=== PATIENT | male | born 1955 | race Caucasian/White ===

== ENCOUNTER 2023-12-17 15:18 | Inpatient (IN) | payer OTHER, SELFPAY ==
--- NOTE | ~2023-12-17 | CT_ITS ---
EXAMINATION: CT brain wo con DATE: 12/17/2023 16:23 INDICATION: Loss of consciousness. TECHNIQUE: Computed tomography (CT) of the head was performed without intravenous contrast. The mA wa s adjusted according to patient size. Iterative reconstruction technique was employed. The dose-lengt h product was 605.33 mGy-cm. COMPARISON: None FINDINGS: There is no intracranial hemorrhage, acute infarction, or abnormal intracranial mass lesion . There are scattered areas of low attenuation in the cerebral white matter, which is within normal l imits for the patient's age. The ventricles are normal in size. There is mild mucosal thickening in t he paranasal sinuses. There are surgical changes in the paranasal sinuses. The orbits are normal. The mastoid air cells are normal. IMPRESSION: 1. Normal aging brain. Reviewed, dictated and finalized at location E. IMPRESSION: 1. Normal aging brain.
--- NOTE | ~2023-12-17 | CT_ITS ---
Non-contrast CT scan of the Abdomen and Pelvis Clinical indication: Recurrent UTI, hematuria Technique: 2.5 mm axial scans were obtained through the abdomen and pelvis without intravenous or or al contrast. Dose reduction technique was used on this scan by utilizing automated exposure control a nd iterative reconstruction technique. The dose-length product (DLP) was 450.28 mGy-cm. Findings: Images through the lung bases reveal presumed right basilar atelectatic change. There is no evidence of renal or ureteral calculi. The kidneys and the ureters are nondilated. The liver, spleen, pancreas, gallbladder, and adrenals appear normal.. There are atherosclerotic calc ifications of the aorta. There is no evidence of bowel obstruction. Images through the pelvis were performed. There is no evidence of ascites or lymphadenopathy. Possibl e urinary bladder wall thickening versus underdistention, with suprapubic catheter in place. Prostate gland is enlarged. Impression: Question cystitis of the urinary bladder versus underdistention. Superpubic catheter in place. Enlarged prostate gland. Reviewed, dictated and finalized at location . Impression: Question cystitis of the urinary bladder versus underdistention. Superpubic cat heter in place. Enlarged prostate gland.
--- NOTE | 2023-12-17 15:23 | ECG_ITS ---
SEE SCANNED COPY FOR CONFIRMED REPORT MTDD
[2023-12-17 15:42] VITALS: BP 117/68; PULSE 72; RESP 16; TEMP 36.7; O2SAT 100
[2023-12-17 15:49] LABS: Glucose Point of Care 81 mg/dl (65-105)
[2023-12-17 15:51] LABS: Basophils Percent Auto 0.5 % (0.2-1.2); Eosinophils Absolute Auto 0.1 K/mm3 (0-0.3); Eosinophils Percent Auto 1.7 % (0-4.4); Hematocrit 33.5 % (42.0-52.0); Immature Granulocyte Absolute 0.02 K/mm3 (0.00-0.031); Immature Granulocyte Percent A 0.5 % (0-0.5); Lymphocytes Percent Auto 29.4 % (18.3-44.2); Mean Corpuscular HGB Conc 32.8 g/dl (32-36); Mean Corpuscular Hemoglobin 30.7 pg (26-34); Mean Corpuscular Volume 93.6 fl (80-100); Mean Platelet Volume 10.3 fl (7.4-10.4); Monocytes Absolute Auto 0.5 K/mm3 (0.1-0.6); Monocytes Percent Auto 13.2 % (2.6-8.5); Neutrophils Absolute Auto 2.2 K/mm3 (1.3-6.7); Neutrophils Percent Auto 54.7 % (45.5-73.1); Platelet Count Result 134 k/mm3 (150-375); Red Blood Count 3.58 M/mm3 (4.6-6.20); Red Cell Distribution Width 16.3 % (11.5-14.5); White Blood Count 4.1 K/mm3 (4.5-10.0)
[2023-12-17 16:03] LABS: Anion Gap 6 mmol/L (4-12); Blood Urea Nitrogen 19 mg/dL (9-20); Carbon Dioxide 28 mmol/L (22-30); Chloride 103 mmol/L (98-107); Estimated CRCL calculation 103 ml/min; Sodium 137 mmol/L (137-145)
[2023-12-17 16:04] LABS: Alanine Aminotransferase 16 U/L (6-50); Albumin Level 3.8 g/dL (3.5-5.1); Alkaline Phosphatase 75 U/L (38-126); Appearance Urine Turbid (Clear); Aspartate Amino Transferase 22 U/L (17-59); Bacteria Urine 4+ /hpf; Bilirubin Urine Negative (Negative); Bilirubin,Total 0.4 mg/dL (0.2-1.3); Blood Urine 2+ (Negative); Calcium 9.1 mg/dL (8.4-10.2); Color Urine Dark Yellow (Yellow); Estimated Glomerular Filt Rate > 60; Glucose 83 mg/dL (65-110); Glucose Urine UA Negative (Negative); Ketones Urine 1+ mg/dL (Negative); Lactic Acid Reflex 2.5 mmol/L (0.7-2.0); Leukocyte Esterase Ur 3+ LEU/UL (Negative); Need Manual Microscopic Reviewed; Nitrate Urine Positive (Negative); Protein Urine 1+ mg/dL (Negative); RBC Urine 21-50 /hpf (0-2); Squamous Epithelial Cell Urine None Seen /hpf (Few); Urobilinogen Urine 0.2 mg/dL (<2.0); WBC Urine >100 /hpf (0-3); pH Urine 7.5 (5.0-9.0)
[2023-12-17 16:05] LABS: Add Urine Microscopic? YES
[2023-12-17 16:15] LABS: Troponin I < 0.012 ng/mL (0.000-0.034)
[2023-12-17] MEDS: SODIUM CHLORIDE 0.9% IV 1,000 ML 150 ML IV CONT (16:41)
--- NOTE | 2023-12-17 16:43 | ED.AMS ---
HPI - Altered Mental Status General Chief Complaint: Altered Mental Status Stated Complaint: AMS/UTI Time Seen by Provider: 12/17/23 15:18 Source: family and EMS Mode of arrival: EMS History of Present Illness HPI narrative: 68-year-old with a history of CAD status post CABG, paraplegia, suprapubic catheter was brought in from home with the complaints of altered mental status. As per the EMS patient is A&O x4 however since last night he has been found to be quite confused. He was seen [facility] [place] was diagnosed with urinary tract infection was started on antibiotics still after they got home reports that he is being very confused. No history of fever or chills. Patient states that he has a burning in the genital area MD complaint: altered mental status and confusion Timing confirmed by: spouse Severity: moderate Related Data Home Medications Medication Instructions Recorded Confirmed Lactobacillus acidophilus 1 1,000 mmu cells PO DAILY 10/03/20 10/14/23 billion cell capsule acetic acid 0.25 % irrigation 1,000 ml irrigation Q12H 10/03/20 10/14/23 solution albuterol sulfate 2.5 mg/3 mL 2.5 mg inhalation Q6H 10/03/20 10/14/23 (0.083 %) solution for nebulization albuterol sulfate 90 mcg/actuation 1 puff inhalation Q4H PRN 10/03/20 10/14/23 aerosol inhaler alogliptin 25 mg tablet 25 mg PO DAILY 10/03/20 10/14/23 apixaban 5 mg tablet 5 mg PO BID 10/03/20 10/14/23 aspirin 81 mg tablet,delayed 81 mg PO DAILY 10/03/20 10/14/23 release atorvastatin 80 mg tablet 80 mg PO DAILY 10/03/20 10/14/23 baclofen 20 mg tablet 20 mg PO QID 10/03/20 10/14/23 bisacodyl 10 mg rectal suppository 10 mg RECTAL DAILY PRN 10/03/20 10/14/23 blood sugar diagnostic (Accu-Chek #10 ea 10/03/20 10/14/23 Naya Plus test strips) budesonide-formoterol HFA 160 2 puff inhalation Q12H 10/03/20 10/14/23 mcg-4.5 mcg/actuation aerosol inhaler bumetanide 2 mg tablet 2 mg PO BID 10/03/20 10/14/23 cyanocobalamin (vitamin B-12) 500 500 mcg PO DAILY 10/03/20 10/14/23 mcg tablet divalproex 250 mg tablet,delayed 250 mg PO .qd 10/03/20 10/14/23 release divalproex 500 mg tablet,delayed 500 mg PO .qd 10/03/20 10/14/23 release docusate sodium 100 mg capsule 100 mg PO TID PRN 10/03/20 10/14/23 eplerenone 25 mg tablet 25 mg PO DAILY 10/03/20 10/14/23 fluorometholone 0.1 % eye 1 drp RIGHT EYE Q6H 10/03/20 10/14/23 drops,suspension gabapentin 300 mg capsule 300 mg PO .qhs 10/03/20 10/14/23 glipizide 5 mg tablet 5 mg PO BID 10/03/20 10/14/23 glucose 4 gram chewable tablet 4 g PO Q15M PRN 10/03/20 10/14/23 guaifenesin 400 mg tablet 400 mg PO Q4H 10/03/20 10/14/23 hydroxyzine HCl 50 mg tablet 50 mg PO .qhs 10/03/20 10/14/23 insulin glargine 100 unit/mL (3 45 unit subcut QAM 10/03/20 10/14/23 mL) subcutaneous pen lidocaine HCl 2 % mucosal jelly 1 applic topical .qd 10/03/20 10/14/23 loratadine 10 mg capsule 10 mg PO DAILY 10/03/20 10/14/23 melatonin 3 mg capsule mg PO 10/03/20 10/14/23 metformin 1,000 mg tablet 1,000 mg PO BID 10/03/20 10/14/23 metoprolol succinate 200 mg 200 mg PO DAILY 10/03/20 10/14/23 tablet,extended release 24 hr omega-3 fatty acids 1,000 mg 1,000 mg PO DAILY 10/03/20 10/14/23 capsule (Fish Oil Concentrate) pantoprazole 20 mg tablet,delayed 20 mg PO QAM 10/03/20 10/14/23 release pen needle, diabetic 31 gauge x #50 ea 10/03/20 10/14/2316 (BD Ultra-Fine Mini Pen Needle) phenylephrine HCl 0.25 % rectal 1 supp RECTAL BID PRN 10/03/20 10/14/23 suppository polyvinyl alcohol 1.4 % eye drops 1 drp EACH EYE BID 10/03/20 10/14/23 (Artificial Tears (polyvinyl alcohol)) tiotropium bromide 2.5 2 inh inhalation QAM 10/03/20 10/14/23 mcg/actuation mist for inhalation Allergies Allergy/AdvReac Type Severity Reaction Status Date / Time morphine Allergy Unknown Hallucinati Verified 10/14/23 14:27 ng lisinopril Allergy cough Verified 10/14/23 14:27 Sulfa (Sulfonamide AdvReac Severe Anaphylacti
--- NOTE | 2023-12-17 16:47 | PC.NURSE ---
[facility] - spoke with farm loan representative there and states [facility] is at max capacity for admissions
--- NOTE | 2023-12-17 18:15 | ADMGEN ---
This patient, Romel Wolf, was admitted to Medical Room 252-01. Patient/family oriented to hospital policies and general routines including ID bracelet, bed and alarms, visiting hours, pain management, procedures, bathroom and other care routines, personal items, smoking policy, room service/diet, and visiting hours. Information on how to activate the Rapid Response Team has been discussed. Patient/Family are encouraged to report perceived risks to care and to ask questions if they do not understand what they are told or what they should do.
[2023-12-17 18:49] LABS: Reflex Lactic Acid Yes or No Add Lactic
[2023-12-17 19:02] VITALS: BMI 24.4
[2023-12-17 19:13] VITALS: BMI 24.4
[2023-12-17 19:49] VITALS: BP 100/50; PULSE 76; RESP 20; TEMP 36.3; O2SAT 99
[2023-12-17 19:58] VITALS: BP 107/85; PULSE 72; RESP 18; TEMP 36.8; O2SAT 100
[2023-12-17 20:00] VITALS: PULSE 91
[2023-12-17 20:27] LABS: Lactic Acid 1.1 mmol/L (0.7-2.0)
--- NOTE | 2023-12-17 22:45 | PM.IMHP ---
H&P: HPI History of Present Illness Date/Time: 12/17/23 18:00 Chief Complaint: Confusion. Narrative: This is a 68-year-old male with paroxysmal atrial fibrillation on chronic anticoagulation, coronary artery disease status post 3 vessel bypass, hypertension, hyperlipidemia, chronic obstructive pulmonary disease, obstructive apnea, type 2 diabetes mellitus, and sarcoidosis who presented to the emergency department for evaluation of confusion. Due to his confusion he is not able to provide an accurate history and a majority of the following is obtained from his , with the patient's permission. He is paraplegic and has a suprapubic catheter with reported history of multidrug resistant urinary tract infections though he has not had 1 for quite some time. The last couple of days he has been confused and he was actually seen in the emergency department at the [place] yesterday at which time he was diagnosed with the UTI and discharged home on a cephalosporin. He has taken 2 doses thus far. Unfortunately he remains confused and this morning he was even more confused than yesterday and his brought him back in for evaluation. The patient complains suprapubic discomfort and some burning in the genital region. He has not had a fever to his knowledge and he denies chills, sweats, cold and flu symptoms, headache, neck ache, focal weakness, paresthesias, vertigo, visual changes, facial droop, slurred speech, difficulty swallowing, chest pain, pleuritic pain, cough, shortness of breath, nausea, vomiting, and diarrhea. No known history of kidney or bladder stones. In the ED: He was afebrile on arrival with stable vital signs. Labs were significant for WBC count of 4.1, hemoglobin 11.0, platelet 134, lactic acid 2.5. Urine was nitrate and leukocyte esterase positive with greater than 100 WBC and 4+ bacteria. Brain CT showed a normal aging brain. He was given 1 g of ceftriaxone and is being admitted in this setting for further treatment and evaluation. Review of Systems Review of Systems: Difficult to obtain given the patient's confusion. His answered majority of the questions and the review of systems is negative except for as detailed in HPI. [facility] Past Medical History Medical History (Updated 12/17/23 @ 23:11 by Virgen Costa PA-C) Chronic anticoagulation Coronary artery disease Hyperlipidemia Insulin dependent type 2 diabetes mellitus Paroxysmal atrial fibrillation Posttraumatic stress disorder Sarcoidosis Spinal cord injury Supraventricular tachycardia Vitamin B12 deficiency Surgical History Surgical History (Updated 12/17/23 @ 23:05 by Virgen Costa PA-C) History of coronary artery bypass graft x 3 History of thoracic surgery rods in spine History of tonsillectomy Family History Family History Mother Diabetes mellitus Heart disease Father Heart disease Social History Social History (Updated 12/17/23 @ 23:06 by Virgen Costa PA-C) Social History: Surrogate medical decision maker: Patti Wolf, spouse. Code status: Full code. Smoking status: Light tobacco smoker Tobacco type: cigars Second hand tobacco smoke exposure: No Alcohol intake: current Drinks per week: 1 Alcohol use details: occasional Substance use: never Substance use type: does not use Do You Feel Safe in your Home?: Yes Lack of Transportation: No Lack of Food: Never True Current Housing: I Have Housing Concerned About Future Housing: No Difficulty Paying Gas/Electric Bills: No Difficulty Paying for Meds: No Currently Unemployed: No Education: Master's Degree or Higher Difficulty w/ Childcare or Family Care: No Living arrangements: with family Additional living arrangements comments: Lives with spouse in [place]. Occupation/Education: retired Additional occupation/education comments: [employer]. Spiritual care concerns: No
[2023-12-17] MEDS: MEROPENEM 1 GM/NS 100 ML 1 GM/100 ML BAG IVPB (23:37)
[2023-12-17] MEDS: traZODone HCL 50 MG TABLET 100 MG PO (23:37)
[2023-12-18] VITALS (11 sets, daily range): BP systolic 96–118; BP diastolic 53–72; PULSE 59–94; RESP 16–20; TEMP 36.4–36.6; O2SAT 91–100; BMI 25.4
[2023-12-18 02:33] LABS: Amphetamine Screen Urine Negative (Negative); Barbiturate Screen Urine Negative (Negative); Benzodiazepines Screen Urine Negative (Negative); Cannabinoid Screen Urine Negative (Negative); Cocaine Screen Urine Negative (Negative); Methadone Screen Urine Negative (Negative); Opiate Screen Urine Negative (Negative); Phencyclidine Screen Urine Negative (Negative)
[2023-12-18] MEDS: SODIUM CHLORIDE 0.9% IV 1,000 ML 125 ML IV CONT (05:26)
[2023-12-18 05:39] LABS: Basophils Percent Auto 0.9 % (0.2-1.2); Eosinophils Absolute Auto 0.1 K/mm3 (0-0.3); Eosinophils Percent Auto 2.8 % (0-4.4); Hematocrit 36.7 % (42.0-52.0); Hemoglobin 11.5 g/dL (14.0-18.0); Immature Granulocyte Absolute 0.02 K/mm3 (0.00-0.031); Immature Granulocyte Percent A 0.4 % (0-0.5); Lymphocytes Percent Auto 30.4 % (18.3-44.2); Mean Corpuscular HGB Conc 31.3 g/dl (32-36); Mean Corpuscular Hemoglobin 30.3 pg (26-34); Mean Corpuscular Volume 96.6 fl (80-100); Mean Platelet Volume 10.4 fl (7.4-10.4); Monocytes Absolute Auto 0.5 K/mm3 (0.1-0.6); Monocytes Percent Auto 11.7 % (2.6-8.5); Neutrophils Absolute Auto 2.5 K/mm3 (1.3-6.7); Neutrophils Percent Auto 53.8 % (45.5-73.1); Platelet Count Result 153 k/mm3 (150-375); Red Cell Distribution Width 16.5 % (11.5-14.5); White Blood Count 4.6 K/mm3 (4.5-10.0)
[2023-12-18 05:49] LABS: Anion Gap 8 mmol/L (4-12); Blood Urea Nitrogen 17 mg/dL (9-20); Calcium 9.5 mg/dL (8.4-10.2); Carbon Dioxide 29 mmol/L (22-30); Chloride 107 mmol/L (98-107); Estimated CRCL calculation 82 ml/min; Estimated Glomerular Filt Rate > 60; Glucose 88 mg/dL (65-110); Magnesium 2.2 mg/dL (1.6-2.3); Sodium 144 mmol/L (137-145)
[2023-12-18 06:39] LABS: Iron 82 ug/dL (49-181)
[2023-12-18 06:48] LABS: Percent Iron Saturation 31 % (20-50)
[2023-12-18 07:40] LABS: Folic Acid 9.8 ng/mL (2.76->20)
[2023-12-18] MEDS: UMECLIDINIUM BROMIDE 62.5 MCG ELLIPTA 1 PUFF INHALATION (07:55)
--- NOTE | 2023-12-18 08:27 | PM.IMPN ---
Progress Note: A&P Assessment and Plan (1) Altered mental status: Qualifiers: Altered mental status type: unspecified Qualified Code(s): R41.82 - Altered mental status, unspecified Code(s): R41.82 - Altered mental status, unspecified Status: Acute Assessment and Plan: Confused. Baseline orientation is alert and oriented x4. likely 2/[address] negative Reorient frequently, encourage family presence Avoid sedating medications Up out of bed to wheelchair during daylight hours, promote sleep at night with clustered care (2) Complicated urinary tract infection: Code(s): N39.0 - Urinary tract infection, site not specified Status: Acute Assessment and Plan: U/A + nitrate, +3 leuks, pyuria and +4 bacteria NS IVF 125 ml per hour, stopped Started on meropenem, switched to Rocephin Mccarty to be exchange by patient Urine culture pending (3) Insulin dependent type 2 diabetes mellitus: Code(s): E11.9 - Type 2 diabetes mellitus without complications; Z79.4 - correction (current) use of insulin Status: Acute Assessment and Plan: Hemoglobin A1c 5% ACHS accu checks SSI insulin Hypoglycemic protocol ordered (4) Normocytic anemia: Code(s): D64.9 - Anemia, unspecified Status: Acute Assessment and Plan: Hemoglobin 11.5g/dl, hematocrit 36.7 %, MCHC 31.3 Iron panel unremarkable Folate, vitamin b12 normal (5) Paroxysmal atrial fibrillation: Code(s): I48.0 - Paroxysmal atrial fibrillation Status: Acute Assessment and Plan: Not on rate control agent but is anticoagulated with Eliquis (6) Coronary artery disease: Code(s): I25.10 - Atherosclerotic heart disease of [place] coronary artery without angina pectoris Status: Acute Assessment and Plan: On statin and ASA Plan Feeding: DM diet Analgesia: Tylenol Thromboembolic prophylaxis: Eliquis Ulcer prophylaxis: PPI Glycemic control: SSI and Lantus 16 units Bowel regimen: Daily suppository Lines: PIV Antibiotics: Rocehpin Disposition: Home when medically stable Subjective Date/time seen: 12/18/23 08:27 Interval history: 68-year-old male with paroxysmal atrial fibrillation on chronic anticoagulation, coronary artery disease status post 3 vessel bypass, hypertension, hyperlipidemia, chronic obstructive pulmonary disease, obstructive apnea, type 2 diabetes mellitus, and sarcoidosis who presented to the emergency department for evaluation of confusion. He was seen 12/15 at the [place] and diagnosed with a UTI and discharged home with a cephalosporin. He is being admitted for UTI and further management. Interval history: 12/17: Patient is seen resting in bed playing on his tablet. He states he feels much better today than when he came in yesterday. He knows that he was very confused yesterday and even overnight but this morning he feels much more clear. He does say that a physician with a terry and an accent came into his room and told him he was going to discharge today. I am the only provider on for this patient and I have not plan to discharge him. Unsure if this actually did occur or if the patient is miss remembering or confused. He otherwise appears alert and oriented. He has no complaints of pain. I did discuss having him exchange his catheter today given the recent UTI. He is agreeable to this. Continue with IV antibiotics and await cultures. I will try to contact the [facility] for recent culture results. Review of Systems Review of Systems: ROS unobtainable: Yes unobtainable due to mental status Exam Narrative: General: well appearing, well developed, well nourished, appears stated age. HEENT: normocephalic, atraumatic. Mucous membranes moist. EOMI, PERRLA, bilateral sclera anicteric, no conjunctival injection. Neck supple without JVD, lymphadenopathy, or bruit. Respiratory: clear to auscultation bilaterally. No rales/rhonic/
[2023-12-18] MEDS: ATORVASTATIN 40 MG TABLET 80 MG PO (10:48)
[2023-12-18] MEDS: CHOLECALCIFEROL 1,000 UNITS TABLET 2000 UNITS PO (10:48)
[2023-12-18] MEDS: GABAPENTIN 300 MG CAPSULE PO ×2 (10:48→18:16)
[2023-12-18] MEDS: BACLOFEN 10 MG TABLET 20 MG PO ×3 (10:48→18:16)
[2023-12-18] MEDS: ACIDOPHILUS/BULGARICUS CHEWABLE TABLET 2 TABLET BY MOUTH (10:48)
[2023-12-18] MEDS: polyethylene glycoL 3350 17 GM POWD.PACK PO (10:49)
[2023-12-18] MEDS: CYANOCOBALAMIN 1,000 MCG TABLET 1000 MCG PO (10:49)
[2023-12-18] MEDS: FERROUS SULFATE 325 MG TABLET DR BY MOUTH (10:49)
[2023-12-18] MEDS: APIXABAN 5 MG TABLET PO ×2 (10:49→20:10)
[2023-12-18] MEDS: BUMETANIDE 1 MG TABLET 2 MG PO ×2 (10:49→18:16)
[2023-12-18] MEDS: OMEGA 3 POLYUNSAT FATTY ACIDS 1 GM CAP PO ×2 (10:49→18:16)
[2023-12-18] MEDS: PANTOPRAZOLE SOD SESQUIHYDRATE 20 MG TAB PO ×2 (10:49→18:15)
[2023-12-18] MEDS: ASPIRIN 81 MG ENTERIC TABLET PO (10:49)
[2023-12-18] MEDS: LORATADINE 10 MG TABLET PO (10:49)
[2023-12-18] MEDS: MEROPENEM 1 GM/NS 100 ML 1 GM/100 ML BAG IVPB (10:53)
[2023-12-18 10:54] LABS: Glucose Point of Care 142 mg/dl (65-105)
[2023-12-18] MEDS: IPRATROPIUM NASAL SPRAY 0.03% 15 ML BOTTLE 2 SPRAY NASAL ×2 (10:54→18:16)
[2023-12-18] MEDS: INSULIN GLARGINE (*BKC) 100 UNITS/ML 16 UNITS SUB-Q (10:54)
[2023-12-18] MEDS: DICLOFENAC SODIUM 1% 100 GM GEL (*BKC) 1 APPLIC TOPICAL ×4 (10:55→20:10)
[2023-12-18] MEDS: DIVALPROEX SODIUM ER 500 MG TAB.24H 2000 MG PO (10:55)
[2023-12-18] MEDS: DANTROLENE SODIUM 25 MG CAPSULE 50 MG PO ×3 (10:55→18:16)
[2023-12-18] MEDS: SALINE 0.65% NAS SOLN 44 ML BTL 2 SPRAY NASAL (10:57)
[2023-12-18 12:19] LABS: Glucose Point of Care 152 mg/dl (65-105)
[2023-12-18] MEDS: FLUTICASONE PROPIONATE 0.05% NA SPR 16 GM BTL (*BKC) 2 SPRAY NASAL ×2 (12:21→18:17)
[2023-12-18] MEDS: cefTRIAXone 2 GM/NS 100 ML 2 GM/100 ML BAG IVPB (12:59)
[2023-12-18 17:12] LABS: Glucose Point of Care 138 mg/dl (65-105)
[2023-12-18] MEDS: traZODone HCL 50 MG TABLET 100 MG PO (20:10)
[2023-12-18 20:26] LABS: Glucose Point of Care 178 mg/dl (65-105)
[2023-12-19 05:53] VITALS: BP 121/63; PULSE 80; RESP 20; TEMP 36.4; O2SAT 99
[2023-12-19 06:16] LABS: Basophils Percent Auto 0.9 % (0.2-1.2); Eosinophils Absolute Auto 0.1 K/mm3 (0-0.3); Eosinophils Percent Auto 2.1 % (0-4.4); Hematocrit 33.6 % (42.0-52.0); Immature Granulocyte Absolute 0.03 K/mm3 (0.00-0.031); Immature Granulocyte Percent A 0.6 % (0-0.5); Lymphocytes Absolute Auto 1.62 K/mm3 (0.9-3.2); Lymphocytes Percent Auto 34.8 % (18.3-44.2); Mean Corpuscular HGB Conc 32.7 g/dl (32-36); Mean Corpuscular Hemoglobin 31.4 pg (26-34); Mean Platelet Volume 10.7 fl (7.4-10.4); Monocytes Absolute Auto 0.6 K/mm3 (0.1-0.6); Monocytes Percent Auto 12.2 % (2.6-8.5); Neutrophils Absolute Auto 2.3 K/mm3 (1.3-6.7); Neutrophils Percent Auto 49.4 % (45.5-73.1); Platelet Count Result 149 k/mm3 (150-375); Red Cell Distribution Width 16.8 % (11.5-14.5); White Blood Count 4.7 K/mm3 (4.5-10.0)
[2023-12-19 06:23] LABS: Alanine Aminotransferase 19 U/L (6-50); Albumin Level 3.8 g/dL (3.5-5.1); Alkaline Phosphatase 71 U/L (38-126); Anion Gap 5 mmol/L (4-12); Aspartate Amino Transferase 24 U/L (17-59); Bilirubin,Total 0.4 mg/dL (0.2-1.3); Blood Urea Nitrogen 18 mg/dL (9-20); Calcium 8.6 mg/dL (8.4-10.2); Carbon Dioxide 29 mmol/L (22-30); Chloride 105 mmol/L (98-107); Estimated CRCL calculation 94 ml/min; Estimated Glomerular Filt Rate > 60; Glucose 97 mg/dL (65-110); Potassium 3.5 mmol/L (3.4-5.0); Sodium 139 mmol/L (137-145)
[2023-12-19 07:42] VITALS: O2SAT 96
[2023-12-19] MEDS: UMECLIDINIUM BROMIDE 62.5 MCG ELLIPTA 1 PUFF INHALATION (07:42)
[2023-12-19 08:21] LABS: Glucose Point of Care 109 mg/dl (65-105)
--- NOTE | 2023-12-19 08:35 | PM.IMPN ---
Progress Note: A&P Assessment and Plan (1) Altered mental status: Qualifiers: Altered mental status type: unspecified Qualified Code(s): R41.82 - Altered mental status, unspecified Code(s): R41.82 - Altered mental status, unspecified Status: Acute Assessment and Plan: Confused. Baseline orientation is alert and oriented x4. likely 2/[address] negative Reorient frequently, encourage family presence Avoid sedating medications Up out of bed to wheelchair during daylight hours, promote sleep at night with clustered care (2) Complicated urinary tract infection: Code(s): N39.0 - Urinary tract infection, site not specified Status: Acute Assessment and Plan: U/A + nitrate, +3 leuks, pyuria and +4 bacteria NS IVF 125 ml per hour, stopped Started on meropenem, switched to Rocephin Mccarty to be exchange by patient Urine culture pending 12/18: Mccarty exchanged Urine culture with gram negative bacilli, pending sensitivities (3) Insulin dependent type 2 diabetes mellitus: Code(s): E11.9 - Type 2 diabetes mellitus without complications; 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 Status: Acute Assessment and Plan: Hemoglobin A1c 5% ACHS accu checks SSI insulin Hypoglycemic protocol ordered (4) Normocytic anemia: Code(s): D64.9 - Anemia, unspecified Status: Acute Assessment and Plan: Hemoglobin 11.5g/dl, hematocrit 36.7 %, MCHC 31.3 Iron panel unremarkable Folate, vitamin b12 normal (5) Paroxysmal atrial fibrillation: Code(s): I48.0 - Paroxysmal atrial fibrillation Status: Acute Assessment and Plan: Not on rate control agent but is anticoagulated with Eliquis (6) Coronary artery disease: Code(s): I25.10 - Atherosclerotic heart disease of [place] coronary artery without angina pectoris Status: Acute Assessment and Plan: On statin and ASA Plan Feeding: DM diet Analgesia: Tylenol Thromboembolic prophylaxis: Eliquis Ulcer prophylaxis: PPI Glycemic control: SSI and Lantus 16 units Bowel regimen: Daily suppository Lines: PIV Antibiotics: Rocehpin Disposition: Home when medically stable Subjective Date/time seen: 12/19/23 08:35 Interval history: 68-year-old male with paroxysmal atrial fibrillation on chronic anticoagulation, coronary artery disease status post 3 vessel bypass, hypertension, hyperlipidemia, chronic obstructive pulmonary disease, obstructive apnea, type 2 diabetes mellitus, and sarcoidosis who presented to the emergency department for evaluation of confusion. He was seen 12/15 at the [place] and diagnosed with a UTI and discharged home with a cephalosporin. He is being admitted for UTI and further management. Interval history: 12/17: Patient is seen resting in bed playing on his tablet. He states he feels much better today than when he came in yesterday. He knows that he was very confused yesterday and even overnight but this morning he feels much more clear. He does say that a physician with a terry and an accent came into his room and told him he was going to discharge today. I am the only provider on for this patient and I have not plan to discharge him. Unsure if this actually did occur or if the patient is miss remembering or confused. He otherwise appears alert and oriented. He has no complaints of pain. I did discuss having him exchange his catheter today given the recent UTI. He is agreeable to this. Continue with IV antibiotics and await cultures. I will try to contact the [place] for recent culture results. Review of Systems Review of Systems: ROS unobtainable: Yes unobtainable due to mental status Exam Narrative: General: well appearing, well developed, well nourished, appears stated age. HEENT: normocephalic, atraumatic. Mucous membranes moist. EOMI, PERRLA, bilateral sclera anicteric, no conjunctival injection. Neck supple without JVD
[2023-12-19] MEDS: ASPIRIN 81 MG ENTERIC TABLET PO (08:37)
[2023-12-19] MEDS: APIXABAN 5 MG TABLET PO ×2 (08:37→20:34)
[2023-12-19] MEDS: DIVALPROEX SODIUM ER 500 MG TAB.24H 2000 MG PO (08:37)
[2023-12-19] MEDS: ACIDOPHILUS/BULGARICUS CHEWABLE TABLET 2 TABLET BY MOUTH (08:37)
[2023-12-19] MEDS: CYANOCOBALAMIN 1,000 MCG TABLET 1000 MCG PO (08:38)
[2023-12-19] MEDS: DANTROLENE SODIUM 25 MG CAPSULE 50 MG PO ×3 (08:38→17:02)
[2023-12-19] MEDS: BACLOFEN 10 MG TABLET 20 MG PO ×3 (08:38→17:01)
[2023-12-19] MEDS: CHOLECALCIFEROL 1,000 UNITS TABLET 2000 UNITS PO (08:38)
[2023-12-19] MEDS: ATORVASTATIN 40 MG TABLET 80 MG PO (08:38)
[2023-12-19] MEDS: BUMETANIDE 1 MG TABLET 2 MG PO ×2 (08:38→17:01)
[2023-12-19] MEDS: LORATADINE 10 MG TABLET PO (08:39)
[2023-12-19] MEDS: GABAPENTIN 300 MG CAPSULE PO ×2 (08:39→17:02)
[2023-12-19] MEDS: IPRATROPIUM NASAL SPRAY 0.03% 15 ML BOTTLE 2 SPRAY NASAL (08:39)
[2023-12-19] MEDS: OMEGA 3 POLYUNSAT FATTY ACIDS 1 GM CAP PO ×2 (08:39→17:02)
[2023-12-19] MEDS: FERROUS SULFATE 325 MG TABLET DR BY MOUTH (08:39)
[2023-12-19] MEDS: FLUTICASONE PROPIONATE 0.05% NA SPR 16 GM BTL (*BKC) 2 SPRAY NASAL (08:39)
[2023-12-19] MEDS: PANTOPRAZOLE SOD SESQUIHYDRATE 20 MG TAB PO ×2 (08:40→17:02)
[2023-12-19] MEDS: polyethylene glycoL 3350 17 GM POWD.PACK PO (08:40)
[2023-12-19] MEDS: INSULIN GLARGINE (*BKC) 100 UNITS/ML 16 UNITS SUB-Q (09:05)
[2023-12-19 11:51] LABS: Glucose Point of Care 133 mg/dl (65-105)
--- NOTE | 2023-12-19 12:55 | PC.NURSE ---
On 12/19/23, the student, [Jennie Fields], provided care and completed [facility] documentation on this patient. I have reviewed the student's documentation and agree with the findings.
[2023-12-19] MEDS: cefTRIAXone 2 GM/NS 100 ML 2 GM/100 ML BAG IVPB (13:08)
[2023-12-19] MEDS: SALINE 0.65% NAS SOLN 44 ML BTL 2 SPRAY NASAL (13:16)
--- NOTE | 2023-12-19 13:17 | PM.IMPN ---
Progress Note: A&P Assessment and Plan (1) Insulin dependent type 2 diabetes mellitus: Code(s): E11.9 - Type 2 diabetes mellitus without complications; Z79.4 - FDC (current) use of insulin Status: Acute (2) Normocytic anemia: Code(s): D64.9 - Anemia, unspecified Status: Acute (3) Complicated urinary tract infection: Code(s): N39.0 - Urinary tract infection, site not specified Status: Acute (4) Chronic anticoagulation: Code(s): Z79.01 - FDC (current) use of anticoagulants Status: Acute (5) Paroxysmal atrial fibrillation: Code(s): I48.0 - Paroxysmal atrial fibrillation Status: Acute (6) Posttraumatic stress disorder: Code(s): F43.10 - Post-traumatic stress disorder, unspecified Status: Acute (7) Coronary artery disease: Code(s): I25.10 - Atherosclerotic heart disease of [place] coronary artery without angina pectoris Status: Acute (8) Sarcoidosis: Code(s): D86.9 - Sarcoidosis, unspecified Status: Acute (9) Vitamin B12 deficiency: Code(s): E53.8 - Deficiency of other specified B group vitamins Status: Acute (10) PTSD (post-traumatic stress disorder): Code(s): F43.10 - Post-traumatic stress disorder, unspecified Status: Acute Plan (1) Altered mental status: ?Qualifiers: ?Altered mental status type:?unspecified? Qualified Code(s):?R41.82 - Altered mental status, unspecified ?Code(s): R41.82 - Altered mental status, unspecified ?Status:?Acute ?Assessment and Plan: Confused. Baseline orientation is alert and oriented x4. likely 2/[address] negative Reorient frequently, encourage family presence Avoid sedating medications Up out of bed to wheelchair during daylight hours, promote sleep at night with clustered care 12/18: patient is alert oriented x3, acute encephalopathy has resolved (2) Complicated urinary tract infection: ?Code(s): N39.0 - Urinary tract infection, site not specified ?Status:?Acute ?Assessment and Plan: U/A + nitrate, +3 leuks, pyuria and +4 bacteria NS IVF 125 ml per hour, stopped Started on meropenem, switched to Rocephin Mccarty to be exchange by patient Urine culture grows Serratia marcescens, susceptible to ceftriaxone continue ceftriaxone today because of complicated UTI (3) Insulin dependent type 2 diabetes mellitus: ?Code(s): E11.9 - Type 2 diabetes mellitus without complications; Z79.4 - FDC (current) use of insulin ?Status:?Acute ?Assessment and Plan: Hemoglobin A1c 5% ACHS accu checks SSI insulin Hypoglycemic protocol ordered (4) Normocytic anemia: ?Code(s): D64.9 - Anemia, unspecified ?Status:?Acute ?Assessment and Plan: Hemoglobin 11.5g/dl, hematocrit 36.7 %, MCHC 31.3 Iron panel unremarkable Folate, vitamin b12 normal(5) Paroxysmal atrial fibrillation: ?Code(s): I48.0 - Paroxysmal atrial fibrillation ?Status:?Acute ?Assessment and Plan: Not on rate control agent but is anticoagulated with Eliquis (6) Coronary artery disease: ?Code(s): I25.10 - Atherosclerotic heart disease of [place] coronary artery without angina pectoris ?Status:?Acute ?Assessment and Plan: On statin and ASA Plan Feeding: DM diet Analgesia: Tylenol Thromboembolic prophylaxis: Eliquis Ulcer prophylaxis: PPI Glycemic control: SSI and Lantus 16 units Bowel regimen: Daily suppository Lines: PIV Antibiotics: Rocehpin? Disposition: Home when medically stable Subjective Date/time seen: 12/19/23 13:17 Interval history: I saw exam patient today, patient denies nausea vomiting, chest pain, shortness of breath, headache, focal weakness. Clear urine is drained out from suprapubic catheter. Patient is afebrile, blood pressure stable Exam Narrative: GENERAL: Pleasant, in no acute distress. Well-nourished. - EYES: EOMI. Anic
[2023-12-19 14:00] VITALS: BP 117/64; PULSE 82; RESP 20; TEMP 37; O2SAT 98
[2023-12-19 17:26] LABS: Glucose Point of Care 85 mg/dl (65-105)
[2023-12-19] MEDS: DICLOFENAC SODIUM 1% 100 GM GEL (*BKC) 1 APPLIC TOPICAL (20:35)
[2023-12-19 21:56] VITALS: BP 145/68; PULSE 86; RESP 18; TEMP 37; O2SAT 97
[2023-12-19] MEDS: traZODone HCL 50 MG TABLET 100 MG PO (22:53)
[2023-12-19] MEDS: ACETAMINOPHEN 325 MG TABLET 650 MG PO (23:28)
[2023-12-20 03:45] LABS: Glucose Point of Care 157 mg/dl (65-105)
[2023-12-20 05:20] LABS: Basophils Percent Auto 0.4 % (0.2-1.2); Eosinophils Absolute Auto 0.1 K/mm3 (0-0.3); Eosinophils Percent Auto 2.4 % (0-4.4); Hematocrit 29.7 % (42.0-52.0); Hemoglobin 9.7 g/dL (14.0-18.0); Immature Granulocyte Absolute 0.03 K/mm3 (0.00-0.031); Immature Granulocyte Percent A 0.6 % (0-0.5); Lymphocytes Absolute Auto 1.73 K/mm3 (0.9-3.2); Mean Corpuscular HGB Conc 32.7 g/dl (32-36); Mean Corpuscular Hemoglobin 31.2 pg (26-34); Mean Corpuscular Volume 95.5 fl (80-100); Mean Platelet Volume 10.2 fl (7.4-10.4); Monocytes Absolute Auto 0.7 K/mm3 (0.1-0.6); Monocytes Percent Auto 14.4 % (2.6-8.5); Neutrophils Absolute Auto 2.3 K/mm3 (1.3-6.7); Neutrophils Percent Auto 47.2 % (45.5-73.1); Platelet Count Result 143 k/mm3 (150-375); Red Blood Count 3.11 M/mm3 (4.6-6.20); Red Cell Distribution Width 16.6 % (11.5-14.5); White Blood Count 4.9 K/mm3 (4.5-10.0)
[2023-12-20 06:00] VITALS: BP 112/72; PULSE 79; RESP 18; TEMP 36.7; O2SAT 96
--- NOTE | 2023-12-20 07:44 | PM.IMPN ---
Progress Note: A&P Assessment and Plan (1) Acute UTI: Code(s): N39.0 - Urinary tract infection, site not specified Status: Acute (2) Paraplegic spinal paralysis: Code(s): G82.20 - Paraplegia, unspecified Status: Acute (3) HLD (hyperlipidemia): Code(s): E78.5 - Hyperlipidemia, unspecified Status: Acute (4) Complicated urinary tract infection: Code(s): N39.0 - Urinary tract infection, site not specified Status: Acute (5) Paroxysmal atrial fibrillation: Code(s): I48.0 - Paroxysmal atrial fibrillation Status: Acute (6) Posttraumatic stress disorder: Code(s): F43.10 - Post-traumatic stress disorder, unspecified Status: Acute (7) Coronary artery disease: Code(s): I25.10 - Atherosclerotic heart disease of [place] coronary artery without angina pectoris Status: Acute Plan (1) Altered mental status, possible toxic encephalopathy due to UTI ?Qualifiers: ?Altered mental status type:?unspecified? Qualified Code(s):?R41.82 - Altered mental status, unspecified ?Code(s): R41.82 - Altered mental status, unspecified ?Status:?Acute ?Assessment and Plan: Confused. Baseline orientation is alert and oriented x4. likely 2/[address] negative Reorient frequently, encourage family presence Avoid sedating medications Up out of bed to wheelchair during daylight hours, promote sleep at night with clustered care18: ? patient is alert oriented x3, acute encephalopathy has resolved (2) Complicated urinary tract infection: ?Code(s): N39.0 - Urinary tract infection, site not specified ?Status:?Acute ?Assessment and Plan: U/A + nitrate, +3 leuks, pyuria and +4 bacteria NS IVF 125 ml per hour, stopped Started on meropenem, switched to Rocephin Mccarty to be exchange by patient Urine culture? grows Serratia marcescens, susceptible to ceftriaxone?continue ceftriaxone today because of complicated UTI complicated UTI due to indwelling catheter, this suprapubic catheter has been replaced. has changed to cefdinir 300 mg b.i.d. p.o. at discharge (3) Insulin dependent type 2 diabetes mellitus: ?Code(s): E11.9 - Type 2 diabetes mellitus without complications; Z79.4 - senior care (current) use of insulin ?Status:?Acute ?Assessment and Plan: Hemoglobin A1c 5% ACHS accu checks SSI insulin Hypoglycemic protocol ordered resume home medication and discharge (4) Normocytic anemia: ?Code(s): D64.9 - Anemia, unspecified ?Status:?Acute ?Assessment and Plan: Hemoglobin 11.5g/dl, hematocrit 36.7 %, MCHC 31.3 Iron panel unremarkable Folate, vitamin b12 normal (5) Paroxysmal atrial fibrillation:?Code(s): I48.0 - Paroxysmal atrial fibrillation ?Status:?Acute ?Assessment and Plan: Not on rate control agent but is anticoagulated with Eliquis (6) Coronary artery disease: ?Code(s): I25.10 - Atherosclerotic heart disease of [place] coronary artery without angina pectoris ?Status:?Acute ?Assessment and Plan: On statin and ASA stable Patient denies chest pain Patient ready to be discharged today Subjective Date/time seen: 12/20/23 07:44 Interval history: The patient today, patient feels good, denies chest pain shortness of breath, abdomen pain, nausea vomiting, appetite improving, patient is alert oriented x3. Patient is afebrile, blood pressure stable overnight Exam Narrative: ?GENERAL:? Pleasant,? in no acute distress. Well-nourished. - EYES: EOMI. Anicteric. - HENT: Moist mucous membranes. - LUNGS: Clear to auscultation bilaterally, no wheezing, rhonchi, or rales. - CARDIOVASCULAR: Regular rate and rhythm. No murmur. No JVD. - ABDOMEN: Soft, non-tender and non-distended. No palpable masses. suprapubic catheter is replaced, clear urine drained out - EXTREMITIES: No edema. Peripheral pulses 2+. Non-tender. - NEUROLOGIC:? par
[2023-12-20 07:45] VITALS: PULSE 84; RESP 18; O2SAT 97
[2023-12-20] MEDS: UMECLIDINIUM BROMIDE 62.5 MCG ELLIPTA 1 PUFF INHALATION (07:45)
[2023-12-20 08:28] LABS: Glucose Point of Care 104 mg/dl (65-105)
[2023-12-20] MEDS: PANTOPRAZOLE SOD SESQUIHYDRATE 20 MG TAB PO (09:11)
[2023-12-20] MEDS: DIVALPROEX SODIUM ER 500 MG TAB.24H 2000 MG PO (09:11)
[2023-12-20] MEDS: ACIDOPHILUS/BULGARICUS CHEWABLE TABLET 2 TABLET BY MOUTH (09:11)
[2023-12-20] MEDS: ATORVASTATIN 40 MG TABLET 80 MG PO (09:12)
[2023-12-20] MEDS: BACLOFEN 10 MG TABLET 20 MG PO ×2 (09:12→12:11)
[2023-12-20] MEDS: LORATADINE 10 MG TABLET PO (09:12)
[2023-12-20] MEDS: APIXABAN 5 MG TABLET PO (09:13)
[2023-12-20] MEDS: DANTROLENE SODIUM 25 MG CAPSULE 50 MG PO ×2 (09:13→12:11)
[2023-12-20] MEDS: GABAPENTIN 300 MG CAPSULE PO (09:13)
[2023-12-20] MEDS: ASPIRIN 81 MG ENTERIC TABLET PO (09:13)
[2023-12-20] MEDS: BUMETANIDE 1 MG TABLET 2 MG PO (09:13)
[2023-12-20] MEDS: FERROUS SULFATE 325 MG TABLET DR BY MOUTH (09:13)
[2023-12-20] MEDS: OMEGA 3 POLYUNSAT FATTY ACIDS 1 GM CAP PO (09:14)
[2023-12-20] MEDS: CHOLECALCIFEROL 1,000 UNITS TABLET 2000 UNITS PO (09:14)
[2023-12-20] MEDS: polyethylene glycoL 3350 17 GM POWD.PACK PO (09:14)
[2023-12-20] MEDS: CYANOCOBALAMIN 1,000 MCG TABLET 1000 MCG PO (09:14)
[2023-12-20] MEDS: FLUTICASONE PROPIONATE 0.05% NA SPR 16 GM BTL (*BKC) 2 SPRAY NASAL (09:17)
[2023-12-20] MEDS: IPRATROPIUM NASAL SPRAY 0.03% 15 ML BOTTLE 2 SPRAY NASAL ×2 (09:18→12:17)
[2023-12-20] MEDS: SALINE 0.65% NAS SOLN 44 ML BTL 2 SPRAY NASAL (09:18)
[2023-12-20] MEDS: INSULIN GLARGINE (*BKC) 100 UNITS/ML 16 UNITS SUB-Q (09:19)
[2023-12-20 09:35] LABS: Alanine Aminotransferase 23 U/L (6-50); Albumin Level 3.4 g/dL (3.5-5.1); Alkaline Phosphatase 76 U/L (38-126); Anion Gap 5 mmol/L (4-12); Aspartate Amino Transferase 27 U/L (17-59); Bilirubin,Total 0.4 mg/dL (0.2-1.3); Blood Urea Nitrogen 21 mg/dL (9-20); Calcium 9.1 mg/dL (8.4-10.2); Carbon Dioxide 29 mmol/L (22-30); Chloride 104 mmol/L (98-107); Estimated CRCL calculation 82 ml/min; Estimated Glomerular Filt Rate > 60; Glucose 100 mg/dL (65-110); Magnesium 2.4 mg/dL (1.6-2.3); Potassium 3.4 mmol/L (3.4-5.0); Sodium 138 mmol/L (137-145)
--- NOTE | 2023-12-20 10:37 | P.CDI_ITS ---
CDI Query Clarification Request Urine culture from 12/17/23 grew Serratia Marcescens Chronic Suprapubic catheter documented. Pt started on Rocephin 2 gm daily. Clarification request - UTI has been documented, chronic indwelling suprapubic leal catheter documented. Please clarify if UTI is: * due to/associated with chronic indwelling leal catheter * not due to/associated with chronic indwelling leal catheter * unable to determine <Carie Lpoez RN - Last Filed: 12/20/23 10:42> Clarified Diagnosis Clarified Diagnosis: UTI due to/associated with chronic indwelling leal catheter <Rosa Romero MD - Last Filed: 12/20/23 13:46>
--- NOTE | 2023-12-20 10:42 | P.CDI_ITS ---
CDI Query Clarification Request Documentation in the medical record indicates that this patient has been diagnosed as having the symptom of Altered Mental status . Additional findings also documented in the medical record: 1) Altered mental status: ?Qualifiers: ?Altered mental status type:?unspecified? Qualified Code(s):?R41.82 - Altered mental status, unspecified ?Code(s): R41.82 - Altered mental status, unspecified ?Status:?Acute ?Assessment and Plan: Confused. Baseline orientation is alert and oriented x4. * likely 2/2 to UTI * Head CT negative * Reorient frequently, encourage family presence * Avoid sedating medications * Up out of bed to wheelchair during daylight hours, promote sleep at night with clustered care12/18: ? patient is alert oriented x3, acute encephalopathy has resolved (2) Complicated urinary tract infection: ?Code(s): N39.0 - Urinary tract infection, site not specified ?Status:?Acute ?Assessment and Plan: U/A + nitrate, +3 leuks, pyuria and +4 bacteria * NS IVF 125 ml per hour, stopped * Started on meropenem, switched to Rocephin * Mccarty to be exchange by patient * Urine culture? grows Serratia marcescens, susceptible to ceftriaxone?continue ceftriaxone today because of complicated UTI Patient started on Rocephin 2 gm daily. Patient presented with complaints of altered mental status Based on your medical judgement, can you further clarify in the progress notes, if known, if these findings associated with altered mental status are due to a definite or suspected underlying neurologic cause such as : * Metabolic Encephalopathy * Toxic Encephalopathy * Altered Mental status without Encephalopathy * Other condition (please specify) * None of the above/ Not applicable <Carie Lopez RN - Last Filed: 12/20/23 10:54> Clarified Diagnosis Clarified Diagnosis: Toxic Encephalopathy <Rosa Romero MD - Last Filed: 12/20/23 13:47>
[2023-12-20 11:57] LABS: Glucose Point of Care 190 mg/dl (65-105)
[2023-12-20] MEDS: cefTRIAXone 2 GM/NS 100 ML 2 GM/100 ML BAG IVPB (12:11)
--- NOTE | 2023-12-20 12:16 | PM.DS ---
DS: Admitting Diagnosis Discharge Date 12/19 Admitting Diagnosis (1) Acute UTI: ?Code(s): N39.0 - Urinary tract infection, site not specified ?Status:?Acute (2) Paraplegic spinal paralysis: ?Code(s): G82.20 - Paraplegia, unspecified ?Status:?Acute (3) HLD (hyperlipidemia): ?Code(s): E78.5 - Hyperlipidemia, unspecified ?Status:?Acute (4) Complicated urinary tract infection: ?Code(s): N39.0 - Urinary tract infection, site not specified ?Status:?Acute (5) Paroxysmal atrial fibrillation: ?Code(s): I48.0 - Paroxysmal atrial fibrillation ?Status:?Acute (6) Posttraumatic stress disorder: ?Code(s): F43.10 - Post-traumatic stress disorder, unspecified ?Status:?Acute (7) Coronary artery disease: ?Code(s): I25.10 - Atherosclerotic heart disease of [place] coronary artery without angina pectoris ?Status:?Acute DS: Discharge Diagnosis Discharge Diagnosis (1) Acute UTI: Code(s): N39.0 - Urinary tract infection, site not specified Status: Acute (2) Paraplegic spinal paralysis: Code(s): G82.20 - Paraplegia, unspecified Status: Acute (3) HLD (hyperlipidemia): Code(s): E78.5 - Hyperlipidemia, unspecified Status: Acute (4) Complicated urinary tract infection: Code(s): N39.0 - Urinary tract infection, site not specified Status: Acute (5) Paroxysmal atrial fibrillation: Code(s): I48.0 - Paroxysmal atrial fibrillation Status: Acute (6) Posttraumatic stress disorder: Code(s): F43.10 - Post-traumatic stress disorder, unspecified Status: Acute (7) Coronary artery disease: Code(s): I25.10 - Atherosclerotic heart disease of [place] coronary artery without angina pectoris Status: Acute DS: Summary Hospital Course Hospital Course: This is a 68-year-old male with paroxysmal atrial fibrillation on chronic anticoagulation, coronary artery disease status post 3 vessel bypass, hypertension, hyperlipidemia, chronic obstructive pulmonary disease, obstructive apnea, type 2 diabetes mellitus, and sarcoidosis who presented to the emergency department for evaluation of confusion. Due to his confusion he is not able to provide an accurate history and a majority of the following is obtained from his , with the patient's permission. He is paraplegic and has a suprapubic catheter with reported history of multidrug resistant urinary tract infections though he has not had 1 for quite some time. The last couple of days he has been confused and he was actually seen in the emergency department at the [facility] yesterday at which time he was diagnosed with the UTI and discharged home on a cephalosporin. He has taken 2 doses thus far. Unfortunately he remains confused and this morning he was even more confused than yesterday and his brought him back in for evaluation. The patient complains suprapubic discomfort and some burning in the genital region. He has not had a fever to his knowledge and he denies chills, sweats, cold and flu symptoms, headache, neck ache, focal weakness, paresthesias, vertigo, visual changes, facial droop, slurred speech, difficulty swallowing, chest pain, pleuritic pain, cough, shortness of breath, nausea, vomiting, and diarrhea. No known history of kidney or bladder stones. In the ED: He was afebrile on arrival with stable vital signs. Labs were significant for WBC count of 4.1, hemoglobin 11.0, platelet 134, lactic acid 2.5. Urine was nitrate and leukocyte esterase positive with greater than 100 WBC and 4+ bacteria. Brain CT showed a normal aging brain. He was given 1 g of ceftriaxone and is being admitted in this setting for further treatment and evaluation. the following med issues have been addressed during hospitalization (1) Altered mental status, possible toxic encephalopathy due to UTI ?Qualifiers: ?Altered mental status type:?unspecified? Qualified Code(s):?R
== END 2023-12-20 14:36 | disposition home or self-care (01) | DRG 698 ==
LOC: ANHED 17:18 → ANH2MED 18:16
PROVIDERS: Nurse Practitioner Acute Care; Physician Assistant; Admitting Provider Internal Medicine; Emergency Provider Family Medicine; PCP Family Medicine; Visit Provider Hospitalist
DX: T83.518A Infection and inflammatory reaction due to other urinary catheter, initial encounter (principal); G92.9 Unspecified toxic encephalopathy; G82.20 Paraplegia, unspecified; I25.10 Atherosclerotic heart disease of native coronary artery without angina pectoris; I48.0 Paroxysmal atrial fibrillation; I10 Essential (primary) hypertension; J44.9 Chronic obstructive pulmonary disease, unspecified; D64.9 Anemia, unspecified; D86.9 Sarcoidosis, unspecified; E78.5 Hyperlipidemia, unspecified; E11.9 Type 2 diabetes mellitus without complications; E53.8 Deficiency of other specified B group vitamins; F43.10 Post-traumatic stress disorder, unspecified; T14.90XS Injury, unspecified, sequela; Z79.82 Long term (current) use of aspirin; Z95.1 Presence of aortocoronary bypass graft; Z79.01 Long term (current) use of anticoagulants
CPT/HCPCS: 36415; 70450; 74176; 80048; 80053; 80307; 81001; 82607; 82728; 82746; 82948; 83036; 83540; 83550; 83605; 83735; 84443; 84484; 85025; 87077; 87086; 87088; 87186; 93005; 94640; 99285; A9270; G0378; J0696; J1815; J2185; J7030

== ENCOUNTER 2024-10-19 15:04 | Outpatient (CLI) | payer OTHER, SELFPAY ==
[2024-10-19 15:31] LABS: Alanine Aminotransferase 21 U/L (6-50); Albumin Level 3.5 g/dL (3.5-5.1); Alkaline Phosphatase 103 U/L (38-126); Anion Gap 10 mmol/L (4-12); Aspartate Amino Transferase 27 U/L (17-59); Bilirubin,Total 0.3 mg/dL (0.2-1.3); Blood Urea Nitrogen 20 mg/dL (9-20); Calcium 8.5 mg/dL (8.4-10.2); Carbon Dioxide 30 mmol/L (22-30); Chloride 100 mmol/L (98-107); Estimated Glomerular Filt Rate > 60; Glucose 237 mg/dL (65-110); Potassium 4.2 mmol/L (3.4-5.0); Sodium 140 mmol/L (137-145)
--- OUTSIDE RECORDS SUMMARY | 2024-10-19 17:51 | XMS_ITS | Referral Summary ---
Author Organization [facility] Address [address] [place] [address] Care Team Providers Care Outside Machinist Name Role Phone Adan Serrano MD Primary Care Provider Allergies Active Allergy Reactions Criticality Noted Date Comments Lisinopril Other (See comments) Low 02/06/2017 cough Quinine Other (See comments) Low 02/06/2017 Immune system shuts down Sulfa (Sulfonamide Antibiotics) Anaphylaxis High 02/06/2017 Social History Tobacco Use Types Packs/Day Years Used Date Smoking Tobacco: Never Assessed Personal Safety Answer Date Recorded Getting School Help Needed Not on file 11/02 Sex and Gender Information Value Date Recorded Sex Assigned at Not on file Legal 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 Gender Identity Not on file Sexual Orientation Not on file Last Filed Vital Signs Vital Sign Reading Time Taken Comments Blood Pressure 111/68 01/07/2014 2:06 PM CDT Pulse 93 01/07/2014 2:06 PM CDT Temperature 36.7 C (98.1 F) 01/07/2014 2:06 PM CDT Respiratory Rate - - Oxygen Saturation 97% 01/07/2014 2:06 PM CDT Inhaled Oxygen Concentration - - Weight 70.3 kg (155 lb) 04/17/2024 1:59 PM CDT Height 172.7 cm (5' 8 ) 04/17/2024 1:59 PM CDT Body Mass Index 23.57 04/17/2024 1:59 PM CDT Plan of Treatment Not on file Insurance [facility] Care Teams Outside Machinist Relationship Specialty Start Date End Date Adan Serrano MD [address] [facility] [address] [place] [address] PCP - General Family Medicine 10/25/22
--- OUTSIDE RECORDS SUMMARY | 2024-10-19 17:51 | XMS_ITS | Referral Summary ---
Author Organization [facility] [address] Address [address] [place] [address] Care Team Providers Care Remote Sensing Advisor Name Role Phone Anuja Frausto LACQUER SHADER-KNITTING INSPECTOR Primary Care Provider + Source Comments [facility],non-owned Affiliates and Associated Physician Practices is amultiple site organization consisting of ambulatory clinics and hospital sitesin [place], [place], [place] and [place]. This disclosure is being madepursuant to the Care Everywhere program and may not contain all information available regarding this patient. Last updated 18.[facility] Allergies Active Allergy Reactions Criticality Noted Date Comments Lisinopril Other Low 02/06/2017 cough Quinine Other Low 02/06/2017 Immune system shuts down Sulfa Drugs Anaphylaxis High 02/06/2017 Medications * Be aware that medications may not be up to date on this document. Alwaysverify current medications with the patient. Medication Sig Dispensed Refills Start Date End Date Status bacitracin (BACITRACIN) 500 UNIT/GM ointment 1 tube 0 02/25/2017 Active oxyCODONE CR 12hr (OXYCONTIN) 10 MG tablet Take 10 mg by mouth BID. 15 tablet 0 02/25/2017 Active Additional Information Patient not taking.Reported on 01/27/2019 oxyCODONE, immediate release, (ROXICODONE) 5 MG tablet Take 5 mg by mouth q4h PRN. 31 tablet 0 02/25/2017 Active Additional Information Patient not taking.Reported on 01/27/2019 pantoprazole EC (PROTONIX) 20 MG tablet Take 20 mg by mouth BID. 02/06/2017 Active simvastatin (ZOCOR) 20 MG tablet Take 20 mg by mouth. 02/06/2017 Active tiotropium (SPIRIVA HANDIHALER) 18 MCG inhalation capsule Inhale by mouth. 02/06/2017 Active buPROPion SR 12hr (WELLBUTRIN-SR) 100 MG tablet Take 200 mg by mouth. 02/06/2017 Active Multiple Vitamins-Minerals (MULTI-VITAMIN/MINE RALS) TABS Take 1 tablet by mouth DAILY. 02/06/2017 Active metFORMIN (GLUCOPHAGE) 500 MG tablet Take 500 mg by mouth 2 times daily with morning and evening meal. 02/06/2017 Active divalproex ER 24hr (DEPAKOTE ER) 250 MG tablet Take 500 mg by mouth DAILY. 02/06/2017 Active aspirin (ASPIRIN) 81 MG chew tablet Take 81 mg by mouth DAILY. 02/06/2017 Active Azelastine & Fluticasone (DERMACINRX AZENASE YARY) 137 & 50 MCG/ACT THPK Dolph into the nose. 02/06/2017 Active cetirizine (ZYRTEC) 10 MG tablet Take 10 mg by mouth DAILY. 02/06/2017 Active budesonide (PULMICORT) 0.5 MG/2ML nebulizer suspension 500 mcg BID. 02/06/2017 Active Apixaban (ELIQUIS PO) Active BACLOFEN PO Active DIGOXIN PO Active IRON PO Active GABAPENTIN PO Active GLIPIZIDE PO Active HYDROXYZINE HCL PO Active Menthol-Zinc Oxide (LANTISEPTIC MULTI-PURPOSE EX) Active Ipratropium [place] HFA (ATROVENT HFA IN) Active Loratadine (CLARITIN PO) Active MELATONIN PO Active METOPROLOL SUCCINATE PO Active Polyethylene Glycol 3350 (MIRALAX PO) Active BISACODYL PO Active Active Problems Problem Noted Date Diagnosed Date S/P spinal fusion 05/13/2017 Atrial fibrillation 02/14/2017 Other reduced mobility 02/14/2017 Sarcoidosis 02/14/2017 Ischemic cardiomyopathy 02/14/2017 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 Resolved Problems Problem Noted Date Diagnosed Date Resolved Date Closed fracture of fourth th oracic vertebra with routine healing 02/02/2019 02/02/2019 Closed displaced fracture of fourth cervical vertebra with routine healing 02/02/2019 02/02/2019 Immunizations Name Administration Dates Next Due ANTHRAX, HISTORIC VACCINE 11/17/2008,,10/22/2006, 6,02/18/2004,02/04/2004,01/21/2004 HEP A VACCINE, ADULT 04/07/2003,06/09/2002 HEP B VACCINE, ADULT 3 DOSE 12/19/2005, 5,06/08/2005 INFLUENZA A [id number] VACCINE 07/14/2009 INFLUENZA VACCINE 06/11/2019, 0,05/24/2009, 8,07/09/2007,07/16/2006,07/20/2004 MENINGOCOCAL MENINGITIS 05/08/2003 MMR 05/08/2003 POLIO IPV 05/08/2003 SMALLPOX (VACCINIA) VACCINE, LIVE 02/04/2004 TD (AGE 7-ADULT) 04/08/2003,04/19/1996 TDAP (7yrs+) 02/06/2017 TYPHOID IM 02/10/2008,06/08/2005,05/08/2003 YELLOW FEVER 06/08/2005 Social History Tobacco Use Types Packs/Day Years Used Date Smoking Tobacco: Light Smoker Smokeless Tobacco: Never Alcohol Use Standard Drinks/Week Comments Yes 0 (1 standard drink = 0.6 oz pur e alcohol) Sex and Gender Information Value Date Recorded Sex Assigned at Male 08/22/2022 11:06 AM MOVER Gender Identity Male 08/22/2022 11:06 AM MOVER Sexual Orientation Straight 08/22/2022 11 :06 AM MOVER Last Filed Vital Signs Vital Sign Reading Time Taken Comments Blood Pressure 188/56 01/27/2019 10:13 AM CDT Pulse 70 01/27/2019 10:13 AM CDT Temperature 36.4 C (97.5 F) 01/27/2019 10:13 AM CDT Respiratory Rate 16 01/27/2019 10:13 AM CDT Oxygen Saturation 99% 01/27/2019 10:13 AM CDT Inhaled Oxygen Concentration - - Weight 92.4 kg (203 lb 9.6 oz) 01/28/2018 3:18 P M CDT Height 172.7 cm (5' 8 ) 01/27/2019 10:13 AM CDT Body Mass Index 30.96 01/28/2018 3:18 PM CDT Plan of Treatment Not on file Administered Medications Care Teams Remote Sensing Advisor Relationship Specialty Start Date End Date Anuja Frausto APRN-ELAINA PCP - General 04/30/17
--- OUTSIDE RECORDS SUMMARY | 2024-10-19 17:51 | XMS_ITS | Patient Health Summary ---
Author Organization [facility] Address [address] [place] [address] Care Team Providers Care Labor Standards Director Name Role Phone Anuja Frausto NIRMALA-COURT REPORTER Primary Care Provider + Note from [facility],non-owned Affiliates and Associated Physician Practices is amultiple site organization consisting of ambulatory clinics and hospital sitesin [place], [place], [place] and [place]. This disclosure is being madepursuant to the Care Everywhere program and may not contain all information available regarding this patient. Last updated 18.[facility] Allergies * Lisinopril(Other) -Low Criticality * Quinine(Other) -Low Criticality * Sulfa Drugs(Anaphylaxis) -High Criticality Medications * Be aware that medications may not be up to date on this document. Alwaysverify current medications with the patient. * bacitracin (BACITRACIN) 500 UNIT/GM ointment(Started 02/25/2017) * oxyCODONE CR 12hr (OXYCONTIN) 10 MG tablet(Started 02/25/2017) Take 10 mg by mouth BID. * oxyCODONE, immediate release, (ROXICODONE) 5 MG tablet(Started 02/25/2017) Take 5 mg by mouth q4h PRN. * pantoprazole EC (PROTONIX) 20 MG tablet(Started 02/06/2017) Take 20 mg by mouth BID. * simvastatin (ZOCOR) 20 MG tablet(Started 02/06/2017) Take 20 mg by mouth. * tiotropium (SPIRIVA HANDIHALER) 18 MCG inhalation capsule(Started 02/06/2017) Inhale by mouth. * buPROPion SR 12hr (WELLBUTRIN-SR) 100 MG tablet(Started 02/06/2017) Take 200 mg by mouth. * Multiple Vitamins-Minerals (MULTI-VITAMIN/MINERALS) TABS(Started 02/06/2017) Take 1 tablet by mouth DAILY. * metFORMIN (GLUCOPHAGE) 500 MG tablet(Started 02/06/2017) Take 500 mg by mouth 2 times daily with morning and evening meal. * divalproex ER 24hr (DEPAKOTE ER) 250 MG tablet(Started 02/06/2017) Take 500 mg by mouth DAILY. * aspirin (ASPIRIN) 81 MG chew tablet(Started 02/06/2017) Take 81 mg by mouth DAILY. * Azelastine & Fluticasone (DERMACINRX AZENASE YARY) 137 & 50 MCG/ACT THPK (Started 02/06/2017) [place] into the nose. * cetirizine (ZYRTEC) 10 MG tablet(Started 02/06/2017) Take 10 mg by mouth DAILY. * budesonide (PULMICORT) 0.5 MG/2ML nebulizer suspension(Started 02/06/2017) 500 mcg BID. 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 Resolved Problems Problem Noted Date Diagnosed Date Resolved Date Closed fracture of fourth th oracic vertebra with routine healing 02/02/2019 02/02/2019 Closed displaced fracture of fourth cervical vertebra with routine healing 02/02/2019 02/02/2019 Immunizations * ANTHRAX, HISTORIC VACCINE(Given 11/17/2008, 04/21/2007, 10/22/2006, 03/06/2006, 02/18/2004, 02/04/2004, 01/21/2004) * HEP A VACCINE, ADULT(Given 04/07/2003, 06/09/2002) * HEP B VACCINE, ADULT 3 DOSE(Given 12/19/2005, 07/17/2005, 06/08/2005) * INFLUENZA A [id number] VACCINE(Given 07/14/2009) * INFLUENZA VACCINE(Given 06/11/2019, 06/16/2010, 05/24/2009, 07/25/2008, 07/09/2007, 07/16/2006, 07/20/2004) * MENINGOCOCAL MENINGITIS(Given 05/08/2003) * MMR(Given 05/08/2003) * POLIO IPV(Given 05/08/2003) * SMALLPOX (VACCINIA) VACCINE, LIVE(Given 02/04/2004) * TD (AGE 7-ADULT)(Given 04/08/2003, 04/19/1996) * TDAP (7yrs+)(Given 02/06/2017) * TYPHOID IM(Given 02/10/2008, 06/08/2005, 05/08/2003) * YELLOW FEVER(Given 06/08/2005) Social History Tobacco Use Types Packs/Day Years Used Date Smoking Tobacco: Light Smoker Smokeless Tobacco: Never Alcohol Use Standard Drinks/Week Comments Yes 0 (1 standard drink = 0.6 oz pur e alcohol) Sex and Gender Information Value Date Recorded Sex Assigned at Male 08/22/2022 11:06 AM SECURITY MANAGER Gender Identity Male 08/22/2022 11:06 AM SECURITY MANAGER Sexual Orientation Straight 08/22/2022 11 :06 AM SECURITY MANAGER Last Filed Vital Signs Vital Sign Reading [...] Mass Index 30.96 01/28/2018 3:18 PM CDT Procedures * XR THORACIC SPINE 2VW(Performed 01/27/2019) Performed for S/P spinal fusion * XR CERVICAL SPINE 2 OR 3VW(Performed 01/27/2019) Performed for S/P spinal fusion * XR CERVICAL SPINE 2 OR 3VW(Performed 01/28/2018) Performed for Follow up * XR THORACOLUMBAR SPINE 2VW(Performed 01/28/2018) Performed for Follow up * XR THORACIC SPINE 2VW(Performed 07/30/2017) * XR CERVICAL SPINE 2 OR 3VW(Performed 07/30/2017) * XR CERVICAL SPINE 2 OR 3VW(Performed 04/30/2017) * XR THORACIC SPINE 2VW(Performed 04/30/2017) * XR THORACIC SPINE 2VW(Performed 03/19/2017) * XR CERVICAL SPINE 2 OR 3VW(Performed 03/19/2017) * GLUCOSE ACCUCHECK(Performed 02/25/2017) * PHOSPHORUS BLOOD(Performed 02/25/2017) * MAGNESIUM BLOOD(Performed 02/25/2017) * BASIC METABOLIC PANEL (CALCIUM TOTAL)(Performed 02/25/2017) * CBC W/O DIFFERENTIAL(Performed 02/25/2017) * XR CHEST 1VW PORTABLE(Performed 02/25/2017) * GLUCOSE ACCUCHECK(Performed 02/25/2017) * GLUCOSE ACCUCHECK(Performed 02/24/2017) * GLUCOSE ACCUCHECK(Performed 02/24/2017) * GLUCOSE ACCUCHECK(Performed 02/24/2017) * GLUCOSE ACCUCHECK(Performed 02/24/2017) * GLUCOSE ACCUCHECK(Performed 02/23/2017) * GLUCOSE ACCUCHECK(Performed 02/23/2017) * GLUCOSE ACCUCHECK(Performed 02/23/2017) * GLUCOSE ACCUCHECK(Performed 02/23/2017) * PHOSPHORUS BLOOD(Performed 02/23/2017) * MAGNESIUM BLOOD(Performed 02/23/2017) * BASIC METABOLIC PANEL (CALCIUM TOTAL)(Performed 02/23/2017) * GLUCOSE ACCUCHECK(Performed 02/22/2017) * GLUCOSE ACCUCHECK(Performed 02/22/2017) * GLUCOSE ACCUCHECK(Performed 02/22/2017) * PHOSPHORUS BLOOD(Performed 02/22/2017) * MAGNESIUM BLOOD(Performed 02/22/2017) * BASIC METABOLIC PANEL (CALCIUM TOTAL)(Performed 02/22/2017) * GLUCOSE ACCUCHECK(Performed 02/22/2017) * XR CHEST 1VW PORTABLE(Performed 02/22/2017) * GLUCOSE ACCUCHECK(Performed 02/21/2017) * GLUCOSE ACCUCHECK(Performed 02/21/2017) * GLUCOSE ACCUCHECK(Performed 02/21/2017) * GLUCOSE ACCUCHECK(Performed 02/21/2017) * CBC W/O DIFFERENTIAL(Performed 02/21/2017) * PT-INR [facility](Performed 02/21/2017) * XR CHEST 1VW PORTABLE(Performed 02/21/2017) * MAGNESIUM BLOOD(Performed 02/21/2017) * BASIC METABOLIC PANEL (CALCIUM TOTAL)(Performed 02/21/2017) * GLUCOSE ACCUCHECK(Performed 02/20/2017) * XR CHEST 1VW PORTABLE(Performed 02/20/2017) * GLUCOSE ACCUCHECK(Performed 02/20/2017) * GLUCOSE ACCUCHECK(Performed 02/20/2017) * GLUCOSE ACCUCHECK(Performed 02/20/2017) * XR CHEST 1VW PORTABLE(Performed 02/20/2017) * GLUCOSE ACCUCHECK(Performed 02/19/2017) * GLUCOSE ACCUCHECK(Performed 02/19/2017) * GLUCOSE ACCUCHECK(Performed 02/19/2017) * GLUCOSE ACCUCHECK(Performed 02/19/2017) * XR CHEST 1VW PORTABLE(Performed 02/19/2017) * CBC W AUTO DIFFERENTIAL(Performed 02/19/2017) * VALPROIC ACID LEVEL(Performed 02/19/2017) * MAGNESIUM BLOOD(Performed 02/19/2017) * BASIC METABOLIC PANEL (CALCIUM TOTAL)(Performed 02/19/2017) * CBC W AUTO DIFFERENTIAL(Performed 02/19/2017) * GLUCOSE ACCUCHECK(Performed 02/18/2017) * GLUCOSE ACCUCHECK(Performed 02/18/2017) * GLUCOSE ACCUCHECK(Performed 02/18/2017) * GLUCOSE ACCUCHECK(Performed 02/18/2017) * XR CHEST 1VW PORTABLE(Performed 02/18/2017) * BASIC METABOLIC PANEL (CALCIUM TOTAL)(Performed 02/18/2017) * MAGNESIUM BLOOD(Performed 02/18/2017) * CBC W AUTO DIFFERENTIAL(Performed 02/18/2017) * CBC W AUTO DIFFERENTIAL(Performed 02/18/2017) * GLUCOSE ACCUCHECK(Performed 02/17/2017) * GLUCOSE ACCUCHECK(Performed 02/17/2017) * GLUCOSE ACCUCHECK(Performed 02/17/2017) * GLUCOSE ACCUCHECK(Performed 02/17/2017) * GLUCOSE ACCUCHECK(Performed 02/17/2017) * XR CHEST 1VW PORTABLE(Performed 02/17/2017) * CBC W AUTO DIFFERENTIAL(Performed 02/17/2017) * DIGOXIN LEVEL(Performed 02/17/2017) * BASIC METABOLIC PANEL (CALCIUM TOTAL)(Performed 02/17/2017) * MAGNESIUM BLOOD(Performed 02/17/2017) * CBC W AUTO DIFFERENTIAL(Performed 02/17/2017) * EKG 12-LEAD(Performed 02/17/2017) * GLUCOSE ACCUCHECK(Performed 02/16/2017) * GLUCOSE ACCUCHECK(Performed 02/16/2017) * GLUCOSE ACCUCHECK(Performed 02/16/2017) * XR CHEST 1VW PORTABLE(Performed 02/16/2017) * GLUCOSE ACCUCHECK(Performed 02/16/2017) * BASIC METABOLIC PANEL (CALCIUM TOTAL)(Performed 02/16/2017) * MAGNESIUM BLOOD(Performed 02/16/2017) * DIFFERENTIAL MANUAL(Performed 02/16/2017) * CBC W AUTO DIFFERENTIAL(Performed 02/16/2017) * CBC W AUTO DIFFERENTIAL(Performed 02/16/2017) * GLUCOSE ACCUCHECK(Performed 02/15/2017) * GLUCOSE ACCUCHECK(Performed 02/15/2017) * GLUCOSE ACCUCHECK(Performed 02/15/2017) * GLUCOSE ACCUCHECK(Performed 02/15/2017) * GLUCOSE ACCUCHECK(Performed 02/15/2017) * XR CHEST 1VW PORTABLE(Performed 02/15/2017) * DIFFERENTIAL MANUAL(Performed 02/15/2017) * CBC W AUTO DIFFERENTIAL(Performed 02/15/2017) * VALPROIC ACID LEVEL(Performed 02/15/2017) * PHOSPHORUS BLOOD(Performed 02/15/2017) * MAGNESIUM BLOOD(Performed 02/15/2017) * BASIC METABOLIC PANEL (CALCIUM TOTAL)(Performed 02/15/2017) * CBC W AUTO DIFFERENTIAL(Performed 02/15/2017) * GLUCOSE ACCUCHECK(Performed 02/14/2017) * GLUCOSE ACCUCHECK(Performed 02/14/2017) * XR THORACIC SPINE 2VW(Performed 02/14/2017) * GLUCOSE ACCUCHECK(Performed 02/14/2017) * XR CHEST 1VW PORTABLE(Performed 02/14/2017) * GLUCOSE ACCUCHECK(Performed 02/14/2017) * GLUCOSE ACCUCHECK(Performed 02/14/2017) * DIFFERENTIAL MANUAL(Performed 02/14/2017) * CBC W AUTO DIFFERENTIAL(Performed 02/14/2017) * BASIC METABOLIC PANEL (CALCIUM TOTAL)(Performed 02/14/2017) * PHOSPHORUS BLOOD(Performed 02/14/2017) * MAGNESIUM BLOOD(Performed 02/14/2017) * CBC W AUTO DIFFERENTIAL(Performed 02/14/2017) * ECHO COMPLETE(Performed 02/14/2017) * GLUCOSE ACCUCHECK(Performed 02/13/2017) * GLUCOSE ACCUCHECK(Performed 02/13/2017) * GLUCOSE ACCUCHECK(Performed 02/13/2017) * XR CERVICAL SPINE 2 OR 3VW(Performed 02/13/2017) * GLUCOSE ACCUCHECK(Performed 02/13/2017) * GLUCOSE ACCUCHECK(Performed 02/13/2017) * XR CHEST 1VW PORTABLE(Performed 02/13/2017) * GLUCOSE ACCUCHECK(Performed 02/13/2017) * GLUCOSE ACCUCHECK(Performed 02/13/2017) * BASIC METABOLIC PANEL (CALCIUM TOTAL)(Performed 02/13/2017) * PHOSPHORUS BLOOD(Performed 02/13/2017) * MAGNESIUM BLOOD(Performed 02/13/2017) * CBC W AUTO DIFFERENTIAL(Performed 02/13/2017) * CBC W AUTO DIFFERENTIAL(Performed 02/13/2017) * EKG 12-LEAD(Performed 02/13/2017) * GLUCOSE ACCUCHECK(Performed 02/12/2017) * GLUCOSE ACCUCHECK(Performed 02/12/2017) * VANCOMYCIN LEVEL TROUGH(Performed 02/12/2017) * GLUCOSE ACCUCHECK(Performed 02/12/2017) * GLUCOSE ACCUCHECK(Performed 02/12/2017) * CBC W/O DIFFERENTIAL(Performed 02/12/2017) * XR CHEST 1VW PORTABLE(Performed 02/12/2017) * GLUCOSE ACCUCHECK(Performed 02/12/2017) * GLUCOSE ACCUCHECK(Performed 02/12/2017) * DIFFERENTIAL MANUAL(Performed 02/12/2017) * CBC W AUTO DIFFERENTIAL(Performed 02/12/2017) * BASIC METABOLIC PANEL (CALCIUM TOTAL)(Performed 02/12/2017) * PHOSPHORUS BLOOD(Performed 02/12/2017) * MAGNESIUM BLOOD(Performed 02/12/2017) * TSH(Performed 02/12/2017) * TROPONIN I(Performed 02/12/2017) * CBC W AUTO DIFFERENTIAL(Performed 02/12/2017) * EKG 12-LEAD(Performed 02/12/2017) * EKG 12-LEAD(Performed 02/12/2017) * GLUCOSE ACCUCHECK(Performed 02/11/2017) * GLUCOSE ACCUCHECK(Performed 02/11/2017) * GLUCOSE ACCUCHECK(Performed 02/11/2017) * GLUCOSE ACCUCHECK(Performed 02/11/2017) * VANCOMYCIN LEVEL TROUGH(Performed 02/11/2017) * GLUCOSE ACCUCHECK(Performed 02/11/2017) * XR CHEST 1VW PORTABLE(Performed 02/11/2017) * GLUCOSE ACCUCHECK(Performed 02/11/2017) * URINALYSIS W/MICROSCOPIC NO CULTURE(Performed 02/11/2017) * DIFFERENTIAL MANUAL(Performed 02/11/2017) * CBC W AUTO DIFFERENTIAL(Performed 02/11/2017) * BASIC METABOLIC PANEL (CALCIUM TOTAL)(Performed 02/11/2017) * PHOSPHORUS BLOOD(Performed 02/11/2017) * MAGNESIUM BLOOD(Performed 02/11/2017) * CBC W AUTO DIFFERENTIAL(Performed 02/11/2017) * GLUCOSE ACCUCHECK(Performed 02/10/2017) * GLUCOSE ACCUCHECK(Performed 02/10/2017) * XR CHEST 1VW PORTABLE(Performed 02/10/2017) * CT CHEST WO CONTRAST(Performed 02/10/2017) * GLUCOSE ACCUCHECK(Performed 02/10/2017) * VANCOMYCIN LEVEL RANDOM(Performed 02/10/2017) * GLUCOSE ACCUCHECK(Performed 02/10/2017) * GLUCOSE ACCUCHECK(Performed 02/10/2017) * XR CHEST 1VW PORTABLE(Performed 02/10/2017) * CBC W AUTO DIFFERENTIAL(Performed 02/10/2017) * BLOOD GASES ARTERIAL(Performed 02/10/2017) * BASIC METABOLIC PANEL (CALCIUM TOTAL)(Performed 02/10/2017) * PHOSPHORUS BLOOD(Performed 02/10/2017) * MAGNESIUM BLOOD(Performed 02/10/2017) * CBC W AUTO DIFFERENTIAL(Performed 02/10/2017) * GLUCOSE ACCUCHECK(Performed 02/09/2017) * URINALYSIS REFLEX TO MICROSCOPIC NO CULTURE(Performed 02/09/2017) * CULTURE URINE(Performed 02/09/2017) * CULTURE SPUTUM+GRAM STAIN(Performed 02/09/2017) * CULTURE BLOOD(Performed 02/09/2017) * CULTURE BLOOD(Performed 02/09/2017) * GLUCOSE ACCUCHECK(Performed 02/09/2017) * TYPE + SCREEN PANEL(Performed 02/09/2017) * CROSSMATCH RBC LEUKOREDUCED(Performed 02/09/2017) * CBC W/O DIFFERENTIAL(Performed 02/09/2017) * GLUCOSE ACCUCHECK(Performed 02/09/2017) * GLUCOSE ACCUCHECK(Performed 02/09/2017) * BLOOD GASES ARTERIAL(Performed 02/09/2017) * GLUCOSE ACCUCHECK(Performed 02/09/2017) * XR ABDOMEN KUB PORTABLE(Performed 02/09/2017) * XR CERVICAL SPINE 2 OR 3VW(Performed 02/09/2017) * XR THORACIC SPINE 2VW(Performed 02/09/2017) * XR CHEST 1VW PORTABLE(Performed 02/09/2017) * BLOOD GASES ARTERIAL(Performed 02/09/2017) * BASIC METABOLIC PANEL (CALCIUM TOTAL)(Performed 02/09/2017) * PHOSPHORUS BLOOD(Performed 02/09/2017) * MAGNESIUM BLOOD(Performed 02/09/2017) * CBC W AUTO DIFFERENTIAL(Performed 02/09/2017) * CBC W AUTO DIFFERENTIAL(Performed 02/09/2017) * GLUCOSE ACCUCHECK(Performed 02/09/2017) * GLUCOSE ACCUCHECK(Performed 02/08/2017) * BLOOD GASES ARTERIAL(Performed 02/08/2017) * BASIC METABOLIC PANEL (CALCIUM TOTAL)(Performed 02/08/2017) * PHOSPHORUS BLOOD(Performed 02/08/2017) * MAGNESIUM BLOOD(Performed 02/08/2017) * CBC W/O DIFFERENTIAL(Performed 02/08/2017) * BLOOD GASES ART COMPLETE [facility] OR(Performed 02/08/2017) * FL OARM SURGERY(Performed 02/08/2017) * BLOOD GASES ART COMPLETE [facility] OR(Performed 02/08/2017) * BLOOD GASES ART COMPLETE [facility] OR(Performed 02/08/2017) * BLOOD GASES ART COMPLETE [facility] OR(Performed 02/08/2017) * BLOOD GASES ART COMPLETE [facility] OR(Performed 02/08/2017) * BLOOD GASES ART COMPLETE [facility] OR(Performed 02/08/2017) * BLOOD GASES ART COMPLETE [facility] OR(Performed 02/08/2017) * BLOOD GASES ART COMPLETE [facility] OR(Performed 02/08/2017) * GLUCOSE ACCUCHECK(Performed 02/08/2017) * BLOOD GASES ARTERIAL(Performed 02/08/2017) * XR CHEST 1VW PORTABLE(Performed 02/08/2017) * BLOOD GASES ARTERIAL(Performed 02/08/2017) * GLUCOSE ACCUCHECK(Performed 02/07/2017) * BASIC METABOLIC PANEL (CALCIUM TOTAL)(Performed 02/07/2017) * PHOSPHORUS BLOOD(Performed 02/07/2017) * MAGNESIUM BLOOD(Performed 02/07/2017) * CBC W AUTO DIFFERENTIAL(Performed 02/07/2017) * CBC W AUTO DIFFERENTIAL(Performed 02/07/2017) * GLUCOSE ACCUCHECK(Performed 02/07/2017) * BLOOD GASES ARTERIAL(Performed 02/07/2017) * GLUCOSE ACCUCHECK(Performed 02/07/2017) * GLUCOSE ACCUCHECK(Performed 02/07/2017) * XR CHEST 1VW PORTABLE(Performed 02/07/2017) * GLUCOSE ACCUCHECK(Performed 02/07/2017) * XR CHEST 1VW PORTABLE(Performed 02/07/2017) * DIFFERENTIAL MANUAL(Performed 02/07/2017) * CBC W AUTO DIFFERENTIAL(Performed 02/07/2017) * COMPREHENSIVE METABOLIC PANEL(Performed 02/07/2017) * PHOSPHORUS BLOOD(Performed 02/07/2017) * MAGNESIUM BLOOD(Performed 02/07/2017) * PT-INR [facility](Performed 02/07/2017) * CBC W AUTO DIFFERENTIAL(Performed 02/07/2017) * MRI THORACIC SPINE WO CONTRAST(Performed 02/07/2017) * MRI CERVICAL SPINE WO CONTRAST(Performed 02/07/2017) * DRUG ABUSE PANEL 10-20+ETHANOL URINE NO CONFIRM(Performed 02/06/2017) * CT THORACIC SPINE WO CONTRAST(Performed 02/06/2017) * CT HEAD WO CONTRAST(Performed 02/06/2017) * CT FACIAL BONES WO CONTRAST(Performed 02/06/2017) * CT CERVICAL SPINE WO CONTRAST(Performed 02/06/2017) * CT LUMBAR SPINE WO CONTRAST(Performed 02/06/2017) * CT CHEST ABDOMEN PELVIS W CONT(Performed 02/06/2017) * XR PELVIS 1 OR 2VW(Performed 02/06/2017) * XR CHEST 1VW PORTABLE(Performed 02/06/2017) * PTT [facility](Performed 02/06/2017) * ALCOHOL ETHYL BLOOD(Performed 02/06/2017) * COMPREHENSIVE METABOLIC PANEL(Performed 02/06/2017) * PT-INR [facility](Performed 02/06/2017) * CBC W AUTO DIFFERENTIAL(Performed 02/06/2017) * TYPE + SCREEN PANEL(Performed 02/06/2017) * LACTIC ACID BLOOD(Performed 02/06/2017) * PREPARE PLATELET PHERESIS UNIT(S)(Performed 02/06/2017) * CROSSMATCH RBC LEUKOREDUCED(Performed 02/06/2017) * PREPARE FFP UNIT(S)(Performed 02/06/2017) * CROSSMATCH RBC LEUKOREDUCED(Performed 02/06/2017) * CROSSMATCH RBC LEUKOREDUCED(Performed 02/06/2017) * CBC W AUTO DIFFERENTIAL(Performed 02/06/2017) Results * XR THORACIC SPINE 2VW (01/27/2019 9:57 AM CDT) Only the most recent of6 resultswithin the time period is included. Anatomical Region Laterality Modality Spine Radiographic Ruthie ging 01/27/2019 10:1 9 AM CDT Impressions 01/27/2019 11:58 AM CDT IMPRESSION: Unchanged alignment of instrumented posterior spinal fixation from C2 to T7. Dictated by Isaac Infante DO (anesthesia resident). I, Dr. Mrakos GONZALES M.D. have personally reviewed and interpreted this examination/study. This report was electronically signed by Markos GONZALES M.D. on 01/27/2019 11:58 AM . Narrative 01/27/2019 11:58 AM CDT EXAMINATION: 1. XR CERVICAL SPINE 2 OR 3VW 2. XR THORACIC SPINE 2VW HISTORY: Fusion. COMPARISON: Comparison is made with a study from 01/28/2018. FINDINGS: Cervical spine, 2 views: Posterior instrumented cervicothoracic spinal fixation hardware using bipedicle screws and rods beginning at C2 is again seen. No evidence of hardware failure or loosening is identified. The vertebral bodies are normally aligned. Multilevel degenerative disc and joint disease is again seen. The predental interval and prevertebral soft tissues are normal. Thoracic spine, 2 views: The upper thoracic vertebrae are poorly visible on the AP view. Within this limitation, the vertebral bodies are normally aligned. The remainder of the posterior instrumented cervicothoracic spinal fixation hardware from C2 through T7 is seen, with no evidence of hardware failure or loosening. Compression deformities at T3 and T4 are not well demonstrated. Multilevel degenerative disc and joint disease is identified. Sternotomy wires and mediastinal surgical clips are visible on AP view. Procedure Note Helga Gonzales MD - 01/27/2019 EXAMINATION: 1. XR CERVICAL SPINE 2 OR 3VW 2. XR THORACIC SPINE 2VW HISTORY: Fusion. COMPARISON: Comparison is made with a study from 01/28/2018. FINDINGS: Cervical spine, 2 views: Posterior instrumented cervicothoracic spinal fixation hardware using bipedicle screws and rods beginning at C2 is again seen. No evidence of hardware failure or loosening is identified. The vertebral bodies are normally aligned. Multilevel degenerative disc and joint disease isagain seen. The predental interval and prevertebral soft tissues are normal. Thoracic spine, 2 views: The upper thoracic vertebrae are poorly visible on the AP view. Within this limitation, the vertebral bodies are normally aligned. Theremainder of the posterior instrumented cervicothoracic spinal fixation hardware from C2 through T7 is seen, with no evidence of hardware failure or loosening. Compression deformities at T3 and T4 are not welldemonstrated. Multilevel degenerative disc and joint disease is identified. Sternotomy wires and mediastinal surgical clips are visible on AP view. IMPRESSION: Unchanged alignment of instrumented posterior spinal fixation from C2 to T7. Dictated by Isaac Infante DO (anesthesia resident). Dr. Markos Mead M.D. have personally reviewed and interpretedthis examination/study. This report was electronically signed by Markos GONZALES M.D. on 01/27/2019 11:58 AM . Robi Whitehead MD DIAGNOSTIC IMAGING O RDERABLES * XR CERVICAL SPINE 2 OR 3VW (01/27/2019 9:56 AM CDT) Only the most recent of7 resultswithin the time period is included. Anatomical Region Laterality Modality Spine Radiographic Ruthie ging 01/27/2019 10:1 9 AM CDT Impressions 01/27/2019 11:58 AM CDT IMPRESSION: Unchanged alignment of instrumented posterior spinal fixation from C2 to T7. Dictated by Isaac Infante DO (anesthesia resident). Dr. Markos Mead M.D. have personally reviewed and interpreted this examination/study. This report was electronically signed by Markos GONZALES M.D. on 01/27/2019 11:58 AM . Narrative 01/27/2019 11:58 AM CDT EXAMINATION: 1. XR CERVICAL SPINE 2 OR 3VW 2. XR THORACIC SPINE 2VW HISTORY: Fusion. COMPARISON: Comparison is made with a study from 01/28/2018. FINDINGS: Cervical spine, 2 views: Posterior instrumented cervicothoracic spinal fixation hardware using bipedicle screws and rods beginning at C2 is again seen. No evidence of hardware failure or loosening is identified. The vertebral bodies are normally aligned. Multilevel degenerative disc and joint disease is again seen. The predental interval and prevertebral soft tissues are normal. Thoracic spine, 2 views: The upper thoracic vertebrae are poorly visible on the AP view. Within this limitation, the vertebral bodies are normally aligned. The remainder of the posterior instrumented cervicothoracic spinal fixation hardware from C2 through T7 is seen, with no evidence of hardware failure or loosening. Compression deformities at T3 and T4 are not well demonstrated. Multilevel degenerative disc and joint disease is identified. Sternotomy wires and mediastinal surgical clips are visible on AP view. Procedure Note Helga Gonzales MD - 01/27/2019 EXAMINATION: 1. XR CERVICAL SPINE 2 OR 3VW 2. XR THORACIC SPINE 2VW HISTORY: Fusion. COMPARISON: Comparison is made with a study from 01/28/2018. FINDINGS: Cervical spine, 2 views: Posterior instrumented cervicothoracic spinal fixation hardware using bipedicle screws and rods beginning at C2 is again seen. No evidence of hardware failure or loosening is identified. The vertebral bodies are normally aligned. Multilevel degenerative disc and joint disease isagain seen. The predental interval and prevertebral soft tissues are normal. Thoracic spine, 2 views: The upper thoracic vertebrae are poorly visible on the AP view. Within this limitation, the vertebral bodies are normally aligned. Theremainder of the posterior instrumented cervicothoracic spinal fixation hardware from C2 through T7 is seen, with no evidence of hardware failure or loosening. Compression deformities at T3 and T4 are not welldemonstrated. Multilevel degenerative disc and joint disease is identified. Sternotomy wires and mediastinal surgical clips are visible on AP view. IMPRESSION: Unchanged alignment of instrumented posterior spinal fixation from C2 to T7. Dictated by Isaac Infante DO (anesthesia resident). Dr. Markos Mead M.D. have personally reviewed and interpretedthis examination/study. This report was electronically signed by Markos GONZALES M.D. on 01/27/2019 11:58 AM . Robi Whitehead MD DIAGNOSTIC IMAGING O RDERABLES * XR THORACOLUMBAR SPINE 2VW (01/28/2018 3:12 PM CDT) Anatomical Region Laterality Modality Spine Radiographic Ruthie ging 01/28/2018 3:19 PM CDT Impressions 01/28/2018 5:27 PM CDT IMPRESSION: Unchanged alignment of instrumented posterior spinal fixation from C2 to T7. This report was dictated by Cesar Plasencia M.D. (anesthesia resident). Dr. ELVIRA Mead M.D. have personally reviewed and interpreted this examination/study. This report was electronically signed by ELVIRA MACARIO M.D. on 01/28/2018 5:27 PM . Narrative 01/28/2018 5:27 PM CDT EXAMINATION: 1. AP and Lateral radiographs of the cervical spine. 2. AP & lateral radiographs of the thoracolumbar spine. HISTORY: Z09: Follow up COMPARISON: Comparison is made with cervical intrathoracic spine radiograph from 07/30/[address] from 02/06/2017. FINDINGS: CERVICAL: Posterior instrumented cervicothoracic spinal fixation hardware using bipedicle screws and rods beginning at C2 is again seen. No evidence of hardware failure or loosening is identified. The vertebral bodies are normally aligned. The previously described C3 and C4 compression fractures are partially demonstrated. Multilevel degenerative disc and joint disease is again seen. The predental interval and prevertebral soft tissues are normal. THORACOLUMBAR: The upper thoracic vertebrae are poorly visible. Within this limit, the vertebral bodies are normally aligned. The remainder of the posterior instrumented cervicothoracic spinal fixation hardware from C2 through T7 is seen, with no evidence of hardware failure or loosening. Compression deformities at T3 and T4 are not well demonstrated. Multilevel degenerative disc and joint disease is identified. Sternotomy wires and mediastinal surgical clips are visible on AP view, with fracture of the inferior most sternotomy wire redemonstrated. Procedure Note Elvira Macario MD - 01/28/2018 EXAMINATION: 1. AP and Lateral radiographs of the cervical spine. 2. AP & lateral radiographs of the thoracolumbar spine. HISTORY: Z09: Follow up COMPARISON: Comparison is made with cervical intrathoracic spine radiograph from 07/30/[address] from 02/06/2017. FINDINGS: CERVICAL: Posterior instrumented cervicothoracic spinal fixationhardware using bipedicle screws and rods beginning at C2 is again seen. Noevidence of hardware failure or loosening is identified. The vertebral bodies are normally aligned. The previously described C3 and C4 compressionfractures are partially demonstrated. Multilevel degenerative disc and jointdisease is again seen. The predental interval and prevertebral soft tissues are normal. THORACOLUMBAR: The upper thoracic vertebrae are poorly visible. Within this limit, the vertebral bodies are normally aligned. The remainder of the posterior instrumented cervicothoracic spinal fixation hardware from C2 through T7 is seen, with no evidence of hardware failure orloosening. Compression deformities at T3 and T4 are not well demonstrated.Multilevel degenerative disc and joint disease is identified. Sternotomy wires and mediastinal surgical clips are visible on AP view, with fracture of the inferior most sternotomy wire redemonstrated. IMPRESSION: Unchanged alignment of instrumented posterior spinal fixation from C2 to T7. This report was dictated by Cesar Plasencia M.D. (anesthesia resident). I, Dr. ELVIRA MACARIO M.D. have personally reviewed and interpreted this examination/study. This report was electronically signed by ELVIRA MACARIO M.D. on 01/28/2018 5:27 PM . Robi Whitehead MD DIAGNOSTIC IMAGING O RDERABLES * (ABNORMAL) GLUCOSE ACCUCHECK (02/25/2017 11:22 AM CDT) Only the most recent of86 resultswithin the time period is included. Glucose, Fingerstick 179(H) 70-115mg/d L mg/dL [facility] (MICHAEL) Comment:Supervisor [employer]: KONSTANTINPOWERYARA MICHELE MARIIYARON 02/25/2017 11:2 2 AM CDT Jeremias Flores MD [facility] * (ABNORMAL) BASIC METABOLIC PANEL (CALCIUM TOTAL) (02/25/2017 8:02 AM CDT) Only the most recent of17 resultswithin the time period is included. BUN 18 7 - 26 mg/dL [facility] Creatinine 1.0 0.6 - 1.2 mg/dL [facility] Sodium 135(L) 136 - 145 mmol/L [facility] Potassium 4.0 3.5 - 4.5 mmol/L [facility] Chloride 97(L) 98 - 107 mmol/L [facility] CO2 30(H) 22 - 29 mmol/L [facility] Glucose 110 70 - 115 mg/dL [facility] Calcium 8.5 8.4 - 10.2 mg/dL [facility] Anion Gap 12 8 - 18 [facility] BUN/Creatinine Ratio 18 7 - 23 [facility] Osmolality Calculated 283 270 - 300 mOsm/kg [facility] eGFR >60 >60 mL/min/1.7 3 m2 [facility] Blood specimen (specimen) BLOOD SPECIMEN / Unknown 02/25/2017 8:02 AM CDT 02/25/2017 8:11 AM CDT Jeremias Flores MD LAB - CHEMISTRY [facility] [address] [phone] * PHOSPHORUS BLOOD (02/25/2017 8:02 AM CDT) Only the most recent of13 resultswithin the time period is included. Phosphorus 3.5 2.3 - 4.7 mg/dL [facility] Blood specimen (specimen) BLOOD SPECIMEN / Unknown 02/25/2017 8:02 AM CDT 02/25/2017 8:11 AM CDT Jeremias Flores MD LAB - CHEMISTRY [facility] [address] [phone] * MAGNESIUM BLOOD (02/25/2017 8:02 AM CDT) Only the most recent of18 resultswithin the time period is included. Magnesium 1.6 1.6 - 2.6 mg/dL [facility] Blood specimen (specimen) BLOOD SPECIMEN / Unknown 02/25/2017 8:02 AM CDT 02/25/2017 8:11 AM CDT Jeremias Flores MD LAB - CHEMISTRY [facility] Performing Organization Address City/[facility]/ZIP Co de Phone Number [address] [phone] * (ABNORMAL) CBC W/O DIFFERENTIAL (02/25/2017 8:02 AM CDT) Only the most recent of5 resultswithin the time period is included. WBC 7.8 3.5 - 10.5 10 3/uL [facility] RBC 3.45(L) 4.30 - 5.70 10 6/uL [facility] Hemoglobin 10.1(L) 13.5 - 17.5 g/dL [facility] Hematocrit 31.8(L) 39.0 - 50.0 % [facility] MCV 92.2 81.0 - 97.0 fL [facility] MCH 29.3 28.0 - 34.0 pg [facility] MCHC 31.8(L) 32.0 - 36.0 g/dL [facility] Platelet Count 338 150 - 400 10 3/uL [facility] RDW-SD 57.6(H) 36.0 - 50.0 fL [facility] RDW-CV 16.9(H) 11.2 - 14.8 % [facility] MPV 9.2(L) 9.3 - 12.8 fL [facility] Blood specimen (specimen) BLOOD SPECIMEN / Unknown 02/25/2017 8:02 AM CDT 02/25/2017 8:11 AM CDT Jeremias Flores MD LAB - HEMATOLOGY ORD ERABLES [facility] [address] [phone] * XR CHEST 1VW PORTABLE (02/25/2017 7:50 AM CDT) Only the most recent of21 resultswithin the time period is included. Anatomical Region Laterality Modality Chest Other Impressions 02/25/2017 4:55 PM CDT IMPRESSION: Median sternotomy wires, mediastinal clips and cervicothoracic spinal fixation hardware are redemonstrated. Mild bibasilar atelectasis/airspace disease has slightly increased. A small left pleural effusion is unchanged. No right pleural effusion is identified. There is no evidence of pneumothorax. The cardiac and mediastinal silhouettes are unchanged. Dictated by Kelvin Lopez MD (anesthesia resident). This report was approved by Kelvin Lopez M.D. on 02/25/2017 4:[address] Markos Mead M.D. have personally reviewed and interpreted this examination/study. This report was electronically signed by Markos GONZALES M.D. on 02/25/2017 4:55 PM . Narrative 02/25/2017 4:55 PM CDT EXAMINATION: PX CHEST 1 VW HISTORY: follow up COMPARISON: 02/22/2017 FINDINGS/ Procedure Note Helga Gonzales MD - 11/29/2017 EXAMINATION: PX CHEST 1 VW HISTORY: follow up COMPARISON: 02/22/2017 FINDINGS/ IMPRESSION IMPRESSION: Median sternotomy wires, mediastinal clips and cervicothoracic spinalfixation hardware are redemonstrated. Mild bibasilar atelectasis/airspace disease has slightly increased. Asmall left pleural effusion is unchanged. No right pleural effusion isidentified. There is no evidence of pneumothorax. The cardiac andmediastinal silhouettes are unchanged. Dictated by Kelvin Lopez MD (anesthesia resident). This report was approved by Kelvin Lopez M.D. on 02/25/2017 4:10 PM. IDr. Markos M.D. have personally reviewed and interpreted thisexamination/study. This report was electronically signed by Markos GONZALES M.D. on02/25/2017 4:55 PM . Jeremias Flores MD DIAGNOSTIC IMAGING O RDERABLES * (ABNORMAL) PT-INR [facility] (02/21/2017 6:34 AM CDT) Only the most recent of3 resultswithin the time period is included. PT 16.1(H) 12.1 - 14.8 Seconds [facility] INR 1.3 See Comment [facility] Comment: Suggested therapeutic range for low-intensity coumadin therapy for venous thromboembolism prophylaxis is an INR of 2.0-3.0. For high risk patients (Mitral Valve Prosthesis, Atrial Fibrillation, history of TIA/stroke), suggested prophylactic therapeutic range is an INR of 2.5-3.5. Blood specimen (specimen) BLOOD SPECIMEN / Unknown 02/21/2017 6:34 AM CDT 02/21/2017 6:37 AM CDT Narrative [facility] - 02/21/2017 6:48 AM CDT Is patient on Heparin, Argatroban or Dabigatran?->N Jeremias Flores MD LAB - COAGULATION OR DERABLES [address] [phone] * (ABNORMAL) CBC W AUTO DIFFERENTIAL (02/19/2017 2:52 AM CDT) Only the most recent of28 resultswithin the time period is included. WBC 8.5 3.5 - 10.5 10 3/uL [facility] RBC 3.26(L) 4.30 - 5.70 10 6/uL [facility] Hemoglobin 9.5(L) 13.5 - 17.5 g/dL [facility] Hematocrit 29.9(L) 39.0 - 50.0 % [facility] MCV 91.7 81.0 - 97.0 fL [facility] MCH 29.1 28.0 - 34.0 pg [facility] MCHC 31.8(L) 32.0 - 36.0 g/dL [facility] Platelet Count 342 150 - 400 10 3/uL [facility] RDW-SD 57.9(H) 36.0 - 50.0 fL [facility] RDW-CV 18.2(H) 11.2 - 14.8 % [facility] MPV 10.1 9.3 - 12.8 fL [facility] Neutrophils % 73.9(H) 35.0 - 70.0 % [facility] Lymphocytes % 16.7(L) 19.7 - 55.1 % [facility] Monocytes % 7.9 3.0 - 15.0 % [facility] Eosinophils % 1.3 0.0 - 6.0 % [facility] Basophil % 0.2 0.0 - 1.5 % [facility] Neutrophils Absolute 6.2 1.6 - 7.0 10 3/uL [facility] Lymphocyte Absolute 1.4 0.8 - 2.9 10 3/uL [facility] Monocytes Absolute 0.67(H) 0.14 - 0.66 10 3/uL [facility] Eosinophils Absolute 0.11 0.00 - 0.22 10 3/uL [facility] Basophils Absolute 0.02 0.00 - 0.06 10 3/uL [facility] Immature Granulocytes % 1.4(H) 0.0 - 1.0 % [facility] Blood specimen (specimen) BLOOD SPECIMEN / Unknown 02/19/2017 2:52 AM CDT 02/19/2017 3:16 AM CDT Ray Stoddard DRAW [employer] WORKER[employer]OURT REPORTER LAB - HEMATOLOG Y ORDERABLES [address] [phone] * (ABNORMAL) VALPROIC ACID LEVEL (02/19/2017 2:52 AM CDT) Only the most recent of2 resultswithin the time period is included. Valproic Acid Total 16(L) 50 - 100 mcg/mL [facility] Blood specimen (specimen) BLOOD SPECIMEN / Unknown 02/19/2017 2:52 AM CDT 02/19/2017 3:16 AM CDT Ray Stoddard [facility] LAB - CHEMISTRY ORDERABLES Performing Organization Address [facility] Co de Phone Number [address] [phone] * (ABNORMAL) DIGOXIN LEVEL (02/17/2017 3:08 AM CDT) Pathologist [facility] Digoxin 0.5(L) 0.8 - 2.0 ng/mL [facility] Comment: The art objects repairer of Dig[employer] has stated that no immunoassay technique is suitable for quantitating digoxin in plasma/serum from patients on antibody fragment therapy. Blood specimen (specimen) BLOOD SPECIMEN / Unknown 02/17/2017 3:08 AM CDT 02/17/2017 3:36 AM CDT Ray Stoddard [facility] LAB - CHEMISTRY ORDERABLES Performing Organization Address [facility] de Phone Number [address] [phone] * EKG 12-LEAD (02/17/2017 12:00 AM CDT) Only the most recent of4 resultswithin the time period is included. EKG [facility] Comment: Exam Date/Time: Feb 17 2017 10:01:55 Test Reason : trauma Blood Pressure : / mmHG Vent. Rate : 132 BPM Atrial Rate : 131 BPM P-R Int : 000 ms QRS Dur : 078 ms QT Int : 268 ms P-R-T Axes : 000 042 162 degrees QTc Int : 397 ms Atrial fibrillation with rapid ventricular response ST & T wave abnormality, consider lateral ischemia or digitalis effect Abnormal ECG When compared with ECG of 13-FEB-2017 06:18, No significant change was found Confirmed by Nery Felder, Angelica ([id number]), avid editor Armando Heredia ([id number]) on 03/07/2017 2:34:33 PM Referred By: REFERRING NO Confirmed By:Angelica Felder M.D. 02/17/2017 Jeremias Flores MD ECG ORDERABLES Performing Organization Address [facility]/ZIP Co de Phone Number [facility] * (ABNORMAL) DIFFERENTIAL MANUAL (02/16/2017 3:29 AM CDT) Only the most recent of6 resultswithin the time period is included. WBC (corrected for NRBC) 7.0 10 3/uL [facility] Total Cell Count 100 [facility] Neutrophils Absolute Manual 4.27 1.60 - 7.00 10 3/uL [facility] Comment:(BANDS+SEGS) x WBC = NEUT # (ANC) Lymphocyte Absolute Manual 1.47 0.80 - 2.90 10 3/uL [facility] Monocytes Absolute Manual 0.70(H) 0.14 - 0.66 10 3/uL [facility] Eosinophils Absolute Manual 0.14 0.00 - 0.22 10 3/uL [facility] Band % Manual 5 0 - 10 % [facility] Neutrophil % Manual 56 30 - 60 % [facility] Lymphocyte % Manual 21 20 - 45 % [facility] Monocytes % Manual 10 2 - 10 % [facility] Eosinophils % Manual 2 1 - 6 % [facility] Metamyelocyte % Manual 6(H) 0 % [facility] nRBC Manual 1(H) 0 /100 WBC [facility] Platelet Estimate Adequate Adequate [facility] Anisocytosis 1+(A) None [facility] Macrocytosis Few(A) None [facility] Polychromasia 1+(A) None [facility] Blood specimen (specimen) BLOOD SPECIMEN / Unknown 02/16/2017 3:29 AM CDT 02/16/2017 3:39 AM CDT Jeremias Flores MD LAB - HEMATOLOGY ORD ERABLES Performing Organization Address [facility] Co de Phone Number [address] [phone] * ECHO W DOPPLER AND COLOR FLOW (02/14/2017 12:00 AM CDT) Anatomical Region Laterality Modality Other 02/14/2017 Jeremias Flores MD ECHOCARDIOGRAPHY RAD IANT * VANCOMYCIN LEVEL TROUGH (02/12/2017 12:28 PM CDT) Only the most recent of2 resultswithin the time period is included. Pathologist [facility] Vancomycin Trough 11.3 10.0 - 20.0 mcg/mL [facility] Blood specimen (specimen) BLOOD SPECIMEN / Unknown 02/12/2017 12:28 PM CDT 02/12/2017 12:48 PM CDT Narrative [facility] - 02/12/2017 1:08 PM CDT Please draw before the vanc is administered. Jeremias Flores MD LAB - CHEMISTRY [facility] [address] [phone] * TROPONIN I (02/12/2017 12:02 AM CDT) Pathologist [facility] Troponin I <0.010 <0.032 ng/mL [facility] Blood specimen (specimen) BLOOD SPECIMEN / Unknown 02/12/2017 12:02 AM CDT 02/12/2017 1:13 AM CDT Jeremias Flores MD LAB - CHEMISTRY [facility] [address] [phone] * TSH (02/12/2017 12:02 AM CDT) Pathologist [facility] TSH 1.757 0.350 - 4.940 uIU/mL [facility] Blood specimen (specimen) BLOOD SPECIMEN / Unknown 02/12/2017 12:02 AM CDT 02/12/2017 1:11 AM CDT Jeremias Flores MD LAB - CHEMISTRY ORDE RABTIN Performing Organization Address [facility] Co de Phone Number [address] [phone] * (ABNORMAL) URINALYSIS W/MICROSCOPIC NO CULTURE (02/11/2017 12:27 AM CDT) Color UA Yellow Straw, Yellow, Colorless, Light Yellow [facility] Clarity UA Clear Clear [facility] Specific [place] UA 1.017 1.001 - 1.030 [facility] pH UA 6.0 5.0 - 8.0 [facility] Protein UA 70(A) <=20 mg/dL [facility] Glucose UA 30(A) Negative mg/dL [facility] Ketone UA Trace(A) Negative mg/dL [facility] Bilirubin UA Negative Negative mg/dL [facility] Blood UA Moderate(A) Negative [facility] Nitrite UA Negative Negative [facility] Leukocyte Esterase Negative Negative [facility] Urobilinogen UA <2.0 <2.0 mg/dL [facility] RBC UA 2 0 - 8 /HPF [facility] WBC UA 2 0 - 2 /HPF [facility] Mucus UA Many(A) None /LPF [facility] Urine specimen (specimen) 02/11/2017 12:27 AM CDT 02/11/2017 12:30 AM CDT Jeremias Flores MD LAB - URINALYSIS ORD ERABLES Performing Organization Address [facility]/ZIP Co de Phone Number [address] [phone] * CT CHEST WO CONTRAST (02/10/2017 1:52 PM CDT) Anatomical Region Laterality Modality Chest Other Impressions 02/11/2017 1:26 PM CDT IMPRESSION: 1. Interval resolution of trace right apical pneumothorax. 2. Small to moderate right and small left pleural effusions with consolidation of the lower lobes bilaterally, increased when compared to the prior exam. 3. Interval development of patchy groundglass opacities in both lungs, likely representing multifocal pneumonia. 4. Status post instrumented posterior spinal fusion for stabilization of a burst fracture at T4. Multiple right-sided rib fractures, unchanged. Report dictated by Monique Pena M.D. (resident). IDr. Markos M.D. have personally reviewed and interpreted this examination/study. This report was electronically signed by Markos GONZALES M.D. on 02/11/2017 1:26 PM . Narrative 02/11/2017 1:26 PM CDT EXAMINATION: Computed tomography (CT) of the chest without contrast HISTORY: Posttraumatic pneumothorax. TECHNIQUE: CT of the chest was performed without the administration of intravenous contrast according to standard protocol. COMPARISON: CT of the chest, abdomen and pelvis dated 02/06/2017. FINDINGS: Small to moderate right and small left pleural effusions have increased. There are bilateral lower lobe consolidations, new compared to prior exam. There is interval development of patchy bilateral groundglass opacities, likely representing multifocal pneumonia. No pneumothorax is seen. A 3 mm nodule in the right middle lobe is unchanged (series 4, image 83). No new suspicious pulmonary nodules are seen. Post median sternotomy changes are noted. Heart size is normal. No pericardial effusion is present. The trachea is patent and midline. The remaining mediastinal structures appear normal. Multiple enlarged mediastinal and hilar lymph nodes, some of which with calcifications, are unchanged. For reference purposes, a right pretracheal lymph node with central calcification (series 3, image 49) now measures 1.3 cm in short axis (previously 1.2 cm). No supraclavicular, or axillary lymphadenopathy is seen. A left internal jugular portion to venous catheter terminates in the superior vena cava. There is a left-sided three-vessel aortic arch. The aorta and main pulmonary arteries are normal in course and caliber. The remaining unenhanced vascular structures appear normal. Evaluation of the abdominal organs is limited due to lack of intravenous contrast. Within the limitations, the visible portions of the liver, spleen, pancreas, adrenal glands, and kidneys are normal. Hyperattenuating material within the gallbladder may represent vicarious excretion of contrast or sludge. Bone windows demonstrate no suspicious lytic or blastic lesions. The patient is status post instrumented posterior spinal fusion extending from the lower cervical spine to the level of T7 for a traumatic burst fracture at T4 vertebral body. The proximal portion of the hardware is partially imaged. Streak artifact related to the fusion hardware limits evaluation of the central canal in this region. Multiple right- sided rib fractures are again noted. Procedure Note Helga Gonzales MD - 11/29/2017 EXAMINATION: Computed tomography (CT) of the chest without contrast HISTORY: Posttraumatic pneumothorax. TECHNIQUE: CT of the chest was performed without the administration ofintravenous contrast according to standard protocol. COMPARISON: CT of the chest, abdomen and pelvis dated 02/06/2017. FINDINGS: Small to moderate right and small left pleural effusions have increased.There are bilateral lower lobe consolidations, new compared to prior exam.There is interval development of patchy bilateral groundglass opacities,likely representing multifocal pneumonia. No pneumothorax is seen. A 3 mm nodule in the right middle lobeis unchanged (series 4, image 83). No new suspicious pulmonary nodules areseen. Post median sternotomy changes are noted. Heart size is normal. Nopericardial effusion is present. The trachea is patent and midline. Theremaining mediastinal structures appear normal. Multiple enlargedmediastinal and hilar lymph nodes, some of which with calcifications, are unchanged. For reference purposes, a rightpretracheal lymph node with central calcification (series 3, image 49) nowmeasures 1.3 cm in short axis (previously 1.2 cm). No supraclavicular, oraxillary lymphadenopathy is seen. A left internal jugular portion to venous catheter terminates in thesuperior vena cava. There is a left-sided three-vessel aortic arch. Theaorta and main pulmonary arteries are normal in course and caliber. Theremaining unenhanced vascular structures appear normal. Evaluation of the abdominal organs is limited due to lack of intravenouscontrast. Within the limitations, the visible portions of the liver,spleen, pancreas, adrenal glands, and kidneys are normal. Hyperattenuatingmaterial within the gallbladder may represent vicarious excretion of contrast or sludge. Bone windows demonstrate no suspicious lytic or blastic lesions. Thepatient is status post instrumented posterior spinal fusion extending fromthe lower cervical spine to the level of T7 for a traumatic burst fractureat T4 vertebral body. The proximal portion of the hardware is partially imaged. Streak artifact related tothe fusion hardware limits evaluation of the central canal in this region.Multiple right- sided rib fractures are again noted. IMPRESSION IMPRESSION: 1. Interval resolution of trace right apical pneumothorax. 2. Small to moderate right and small left pleural effusions withconsolidation of the lower lobes bilaterally, increased when compared tothe prior exam. 3. Interval development of patchy groundglass opacities in both lungs,likely representing multifocal pneumonia. 4. Status post instrumented posterior spinal fusion for stabilization of aburst fracture at T4. Multiple right-sided rib fractures, unchanged. Report dictated by Monique Pena M.D. (resident). I, Dr. Markos GONZALES M.D. have personally reviewed and interpreted thisexamination/study. This report was electronically signed by Markos GONZALES M.D. on02/11/2017 1:26 PM . Jeremias Flores MD CT ORDERABLES * VANCOMYCIN LEVEL RANDOM (02/10/2017 11:52 AM CDT) Vancomycin Random 28.3 Therapeutic Ranges not established for random specimens mcg/mL [facility] Blood specimen (specimen) BLOOD SPECIMEN / Unknown 02/10/2017 11:52 AM CDT 02/10/2017 12:00 PM CDT Jeremias Flores MD LAB - CHEMISTRY [facility] ([place], [place]) Organization Address City/State/ZIP Co de Phone Number [address] [phone] * (ABNORMAL) BLOOD GASES ART (02/10/2017 12:15 AM CDT) Only the most recent of7 resultswithin the time period is included. pH Arterial 7.38 7.35 - 7.45 [facility] pCO2 Arterial 47(H) 35 - 45 mmHg [facility] pO2 Arterial 158(H) 71 - 95 mmHg [facility] HCO3 Arterial 26.8(H) 22.0 - 26.0 mmol/L [facility] TCO2 Arterial 28.3 25.0 - 29.0 mmol/L [facility] Base Excess Arterial 1.4 -2.0 - 2.0 mmol/L [facility] Hemoglobin Arterial 7.5(L) 13.5 - 17.5 g/dL [facility] Oxyhemoglobin Arterial 97.2 95.0 - 100.0 % [facility] Carboxyhemoglobin 0.3 0.0 - 3.0 % [facility] Methemoglobin 0.5 0.0 - 2.0 % [facility] FI O2 Arterial 40.0 % [facility] Blood specimen (specimen) BLOOD SPECIMEN / Unknown 02/10/2017 12:15 AM CDT 02/10/2017 12:25 AM CDT Jeremias Flores MD LAB - BLOOD GASES OR DERABLES Performing Organization Address City/[facility]/ZIP Co de Phone Number [facility] [address] [phone] * (ABNORMAL) URINALYSIS REFLEX TO MICROSCOPIC NO CULTURE (02/09/2017 9:22 PM CDT) Color UA Yellow Straw, Yellow, Colorless, Light Yellow [facility] Clarity UA Clear Clear [facility] Specific [place] UA 1.018 1.001 - 1.030 [facility] pH UA 6.0 5.0 - 8.0 [facility] Protein UA 50(A) <=20 mg/dL [facility] Glucose UA Negative Negative mg/dL [facility] Ketone UA Negative Negative mg/dL [facility] Bilirubin UA Negative Negative mg/dL [facility] Blood UA Moderate(A) Negative [facility] Nitrite UA Negative Negative [facility] Leukocyte Esterase Negative Negative [facility] Urobilinogen UA <2.0 <2.0 mg/dL [facility] RBC UA 9(H) 0 - 8 /HPF [facility] WBC UA 2 0 - 2 /HPF [facility] Mucus UA Occasional( A) None /LPF [facility] Urine specimen (specimen) 02/09/2017 9:22 PM CDT 02/09/2017 9:26 PM CDT Jeremias Flores MD LAB - URINALYSIS ORD ERABLES [address] [phone] * CULTURE URINE (02/09/2017 9:22 PM CDT) Culture Urine No Growth of >100 CFU/ml after 24 hours [facility] Urine specimen (specimen) 02/09/2017 9:22 PM CDT 02/09/2017 9:27 PM CDT [facility] - 02/11/2017 11:41 AM CDT Specimen Type->Urine Jeremias Flores MD LAB - MICROBIOLOGY [place] Performing Organization Address City/[facility]/ZIP Co de Phone Number [address] [phone] * CULTURE SPUTUM+GRAM STAIN (02/09/2017 9:16 PM CDT) Culture Sputum Growth of respiratory kimmie. [facility] Gram Stain Few Polymorphonuclear Cells [facility] Gram Stain Rare Gram Positive cocci in pairs and Chains [facility] Sputum specimen (specimen) SPUTUM / Unknown 02/09/2017 9:16 PM CDT 02/09/2017 9:26 PM CDT [facility] - 02/12/2017 9:28 AM CDT Specimen Type->Sputum Gram Stains are routinely screened for the presence of Polymorphonuclear Cells. Jeremias Flores MD LAB - MICROBIOLOGY [place] Performing Organization Address City/[facility]/ZIP Co de Phone Number [address] [phone] * CULTURE BLOOD (02/09/2017 9:15 PM CDT) Only the most recent of2 resultswithin the time period is included. Culture Blood No Growth at 5 days [facility] Blood specimen (specimen) (Venous, Peripheral) 02/09/2017 9:15 PM CDT 02/09/2017 9:27 PM CDT [facility] - 02/14/2017 9:30 PM CDT Draw 15 minutes after Culture 1 from a different site Jeremias Flores MD LAB - MICROBIOLOGY [place] Performing Organization Address [facility]/ZIP Co de Phone Number [facility] [address] [place] [address] * TYPE + SCREEN PANEL (02/09/2017 1:27 PM CDT) Only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 CT andsent to the workstation for review. FINDINGS: No prior study is available for comparison at the time of thisdictation. Head: No acute intra- or extra-axial fluid collections are identified. Theventricles are of normal size, shape, and morphology. The basilar cisternsare patent. No mass effect or midline shift is seen. The salas-white matterdifferentiation is normal. No acute calvarial fracture is identified. Maxillofacial: The orbits appear normal. Bilateral maxillary antrostomies and partialethmoidectomies are present. The hard palate, mandible, andtemporomandibular joints appear normal. No acute facial bone fractures areidentified. The mastoid air cells are clear. No soft tissue abnormality is identified. Cervical spine: The alignment is normal. There is a nondisplaced compression fracturethrough the anterior corner of the C3 inferior endplate on the left (image26 series 6) without height loss or retropulsion. There is a coronallyoriented comminuted nonretropulsed compression fracture through C4 with 25 percent height loss. Other thanmiddle atlantoaxial joint osteoarthritis, the craniocervical junctionappears normal. There is advanced degenerative disc disease from the levelof C4-5 to the level of C6-7 with mild to moderate central canal stenosis at these levels. There is advancedmultilevel facet osteoarthritis. There is mild uncovertebral jointosteoarthritis from the level of C4-5 to the level of C6-7 with the samedegree of neural foraminal stenosis at these levels. Prevertebral soft tissue swelling is present in the uppercervical spine. Thoracic spine: There is 4 mm of T3-4 retrolisthesis indicative of a translational injuryat this level. The spinolaminar line is disrupted at T4-5 with widening ofthe T4-5 facets bilaterally, left greater than right, and widening of theT4-5 interspinous interval indicative of a distraction injury and posterior ligamentous complexinjury at this level. There is a comminuted nonretropulsed compressionfracture through the T3 inferior endplate on the right with less than 25percent height loss. There is a comminuted T4 burst fracture with 4 mm of retropulsion and [id number] to 50 percent height loss extending into the right pedicle andtransverse process. There is a displaced fracture through the base of theleft T5 transverse process. There is a nondisplaced compression fracture through the corner of the T8 superiorendplate on the left (image 42 series 6). There is narrowing of the T3-4intervertebral disc space. There is moderate to severe central canalstenosis at the level of the T4 burst fracture and the T4-5 distraction injury. There is moderate T4-5 neuralforaminal stenosis. There is prevertebral soft tissue swelling in theupper thoracic spine. A right pleural effusion and mediastinal and hilarlymphadenopathy are partially imaged. Rib fractures are partially imaged. Please see the separate report fromthe concurrent body CT for further details. Lumbar spine: The alignment is normal. Vertebral bodies are normal in height withoutevidence of acute fracture. The intervertebral discs appear normal. Nocentral canal stenosis is seen. The facets appear normal. No neuralforaminal stenosis is seen. There is atherosclerotic calcification of the abdominal aorta and its branchvessels. IMPRESSION IMPRESSION: 1. No acute intracranial process. 2. No acute facial bone fractures identified. 3. Nonretropulsed C3 and C4 compression fractures. 4. T3-4 translational injury and T4-5 distraction and posteriorligamentous complex injury as described above associated with a G1uwzvmgkjzun fracture an retropulsed T4 burst fracture with moderate tosevere central canal stenosis at the level of T4 and T4-5. T8 compression fracture. 5. No evidence of acute fracture in the lumbar spine. Preliminary findings were relayed to Dr. Carter at 8:44 PM on 06 February 2017by Marcos Yepez. This report was electronically signed by JAYE BURK M.D. on 02/07/20177:01 AM . Jeremias Flores MD CT ORDERABLES * XR PELVIS 1 OR 2VW (02/06/2017 7:30 PM CDT) Anatomical Region Laterality Modality Pelvis Other Impressions 02/07/2017 10:41 AM CDT IMPRESSION: No acute fracture identified. Dictated by Lucius Nugent MD (anesthesia resident). I, Dr. CYDNEY MURPHY M.D. have personally reviewed and interpreted this examination/study. This report was electronically signed by CYDNEY MURPHY M.D. on 02/07/2017 10:41 AM . Narrative 02/07/2017 10:41 AM CDT EXAMINATION: PX PELVIS 1 OR 2 VW HISTORY: Status post [facility] COMPARISON: No prior study is available for comparison. FINDINGS: No acute fracture is identified. The femoral heads appear well-seated within their respective acetabula. The pubic symphysis is intact. Bone density and texture are normal. The sacroiliac joints are normal. Procedure Note Cydney Murphy MD - 11/29/2017 EXAMINATION: PX PELVIS 1 OR 2 VW HISTORY: Status post [facility] COMPARISON: No prior study is available for comparison. FINDINGS: No acute fracture is identified. The femoral heads appear well-seatedwithin their respective acetabula. The pubic symphysis is intact. Bonedensity and texture are normal. The sacroiliac joints are normal. IMPRESSION IMPRESSION: No acute fracture identified. Dictated by Lucius Nugent MD (anesthesia resident). I, Dr. CYDNEY MURPHY M.D. have personally reviewed and interpreted thisexamination/study. This report was electronically signed by CYDNEY MURPHY M.D. on 02/07/201710:41 AM . Jeremias Flores MD DIAGNOSTIC IMAGING O RDERABLES * PTT [facility] (02/06/2017 7:27 PM CDT) APTT 29.6 23.0 - 38.4 Seconds [facility] Comment:Suggested therapeuti c range for full dose I.V. heparin therapy for venous thromboembolism is 66.0-91.0 seconds. Blood specimen (specimen) BLOOD SPECIMEN / Unknown 02/06/2017 7:27 PM CDT 02/06/2017 7:29 PM CDT Narrative [facility] - 02/06/2017 7:45 PM CDT Please ensure that the aPTT specimen is received in the clinical lab within 1 hour of collection if it is used for therapeutic heparin monitoring. Processing of heparinized specimens older than 1 hour may result in inaccurate test results. Is patient on Heparin, Argatroban or Dabigatran?->N Jeremias Flores MD LAB - COAGULATION OR DERABLES [address] [phone] * ALCOHOL ETHYL BLOOD (02/06/2017 7:27 PM CDT) [facility] Interpretation Ethanol None Detected None Detected mg/dL [facility] Comment:Ethanol levels less than 10 mg/dL are resulted as None detected . Blood specimen (specimen) BLOOD SPECIMEN / Unknown 02/06/2017 7:27 PM CDT 02/06/2017 7:29 PM CDT Jeremias Flores MD LAB - CHEMISTRY [facility] [address] [phone] * LACTIC ACID BLOOD (02/06/2017 7:27 PM CDT) [facility] Lactic Acid-Stat 2.0 0.5 - 2.0 mmol/L [facility] Blood specimen (specimen) BLOOD SPECIMEN / Unknown 02/06/2017 7:27 PM CDT 02/06/2017 7:29 PM CDT Jeremias Flores MD LAB - CHEMISTRY [facility] [address] [phone] * PREPARE PLATELET PHERESIS UNIT(S) (02/06/2017 7:27 PM CDT) [facility] Unit Platelet Pheresis [id number] transfused [facility] (BEAKER) Unit ABO AB [facility]) Unit Rh POS [facility] (BEAKER) Unit Number [id number] [facility] ([facility]AKER) Unit Status Transfused [facility] (BEAKER) 02/06/2017 7:27 PM CDT 02/06/2017 7:37 PM CDT Narrative [facility] ([facility]) - 02/06/2017 7:27 PM CDT # of Units->1 Jeremias Flores MD LAB - BLOOD BANK ORD ERABLES [facility] (BEAKER) * PREPARE FFP UNIT(S) (02/06/2017 7:27 PM CDT) Unit FFP [id number] transfused [facility] (BEAKER) Unit ABO A [facility] (BEAKER) Unit Rh NEG [facility] (BEAKER) Unit Number [id number] [facility] (BEAKER) Unit Status Transfused [facility] (BEAKER) Unit FFP [id number] returned [facility] (BEAKER) 02/06/2017 7:27 PM CDT 02/06/2017 7:37 PM CDT Narrative [facility] ([facility]AK[facility]) - 02/06/2017 7:27 PM CDT # of Units->2 Robi Whitehead MD LAB - BLOOD BANK ORD ERABLES [facility] (BEAKER) Care Teams Labor Standards Director Relationship Specialty Start Date End Date Anuja Frausto, DRAW OFF WORKER-COURT REPORTER PCP - General 04/30/17
--- OUTSIDE RECORDS SUMMARY | 2024-10-19 17:51 | XMS_ITS | Clinical Summary ---
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 Gender Identity Not on file Sexual Orientation [...] 04/17/2024 1:59 PM CDT Plan of Treatment Health Maintenance Due Date Last Done Comments Colon Cancer Screening-Colonoscopy 1955 Depression Screening 1955 Fall Risk Assessment 1955 Hepatitis C Screening 1955 Abdominal Aortic Aneurysm (A AA) Screen 2018 02/06/2017 Well Visit 65+ 2018 Zoster Vaccine (2 of 2) 11/01/2023 09/06/2023 Pneumococcal vaccine 65+ (2 of 2 - PCV) 02/29/2024 02/28/2023 Influenza Vaccine (#1) 2024 , 06/09/2020, 06/11/2019, Additional history exists DTaP/Tdap/Td Vaccine (3 - Td or Tdap) 02/28/2033 02/28/2023, 02/06/2017, 04/08/2003, Additional history exists Insurance [facility] [employer] [facility] C[facility] CARE Care Teams Retort Operator Relationship Specialty Start Date End Date Adan Serrano MD [address] [facility] [address] [place] [address] PCP - General Family Medicine 10/25/22
--- OUTSIDE RECORDS SUMMARY | 2024-10-19 17:51 | XMS_ITS | Encounter Summary ---
Author Organization [facility] Healthcare Address [address] [place] [address] Care Team Providers Care Compliance And Control Analyst Name Role Phone Adan Serrano MD Primary Care Provider Encounter Details Date Type Department Care Team (Late st Contact Info) Description 11/11/2023 Telephone [facility] Primary Care Medicine Clinic 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
--- OUTSIDE RECORDS SUMMARY | 2024-10-19 17:51 | XMS_ITS | Clinical Summary ---
Author Organization [facility] [employer] Address [address] [place] [address] Care Team Providers Care Director Community Health Nursing Name Role Phone Anuja Frausto SCOW CAPTAIN-SOFTWARE TEST MANAGER Primary Care Provider + Source Comments [facility],non-owned Affiliates and Associated Physician Practices is amultiple site organization consisting of ambulatory clinics and hospital sitesin [place], [place], [place] and [place]. This disclosure is being madepursuant to the Care Everywhere program and may not contain all information available regarding this patient. Last updated 18.[facility] Allergies Active Allergy Reactions Criticality Noted [...] AZENASE YARY) 137 & 50 MCG/ACT THPK [place] into the nose. 02/06/2017 Active cetirizine (ZYRTEC) 10 MG tablet Take 10 mg by mouth DAILY. 02/06/2017 Active budesonide (PULMICORT) 0.5 MG/2ML nebulizer suspension 500 mcg BID. 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 Gender Identity Male 08/22/2022 11:06 AM STORM CHASER Sexual Orientation Straight 08/22/2022 11 :06 AM STORM CHASER Last Filed Vital Signs Vital Sign Reading [...] 01/28/2018 3:18 PM CDT Plan of Treatment Health Maintenance Due Date Last Done Comments COLOGUARD (AGES 45-75) - COLON CA SCREENING 1953 COLON MONITORING 1953 COLONOSCOPY - COLON CA SCREENING 1953 CT COLONOGRAPHY - COLON CA SCREENING 1953 Colorectal Cancer Screening 1953 FIT - COLON CA SCREENING 1953 FLEX SIG - COLON CA SCREENING 1955 MEDICARE AWV 12 MONTHS 1953 HEPATITIS C SCREENING 04/07/1971 PNEUMOCOCCAL VACCINE 50+ (1 of 2 - PCV) 1972 ZOSTER VACCINE (1 of 2) 2003 Respiratory Syncytial Virus (RSV) Vaccine Pt: or over 60 yrs (1 - Risk 60-74 years 1-dose series) 2013 AAA SCREENING 2018 COVID-19 VACCINE ( - season) 2024 INFLUENZA VACCINE (#1) 2024 2, 06/11/2019, 06/16/2010, Additional history exists DEPRESSION SCREENING 09/02/2024 DTAP/TDAP/TD VACCINES (4 - Td or Tdap) 02/06/2027 02/06/2017, 04/08/2003, 04/19/1996 MENINGOCOCCAL VACCINE Aged Out 05/08/2003 No karla liana eligible based on patient's age to complete this topic HEPATITIS B VACCINE Completed 12/19/2005, 07/17/2005, 06/08/2005 HIB VACCINE Aged Out No longer eligi ble based on patient's age to complete this topic HPV VACCINE Aged Out No longer eligi ble based on patient's age to complete this topic MENINGOCOCCAL (Group B) VACCINE Aged Out No longer eligible based on patient's age to complete this topic Care Teams Director Community Health Nursing Relationship Specialty Start Date End Date Anuja Frausto, SCOW CAPTAIN-SOFTWARE TEST MANAGER PCP - General 04/30/17
== END 2024-10-19 15:05 | disposition home or self-care (01) ==
LOC: ANHLAB 15:06
PROVIDERS: PCP Family Medicine; Visit Provider Family Medicine
DX: N18.4 Chronic kidney disease, stage 4 (severe) (principal)
CPT/HCPCS: 36415; 80053

== ENCOUNTER 2025-01-24 14:49 | Emergency (ER) | payer OTHER, SELFPAY ==
[2025-01-24] VITALS (32 sets, daily range): BP systolic 68–108; BP diastolic 27–74; PULSE 67–81; RESP 12–36; TEMP 36.1–36.5; O2SAT 94–100
--- NOTE | ~2025-01-24 | CT_ITS ---
CT abdomen pelvis w con Ordering provider: Travon Cornelius MD History: 69 years Male with . hypotension, anemia . Comparison: December 18, 2023 Technique: CT abdomen and pelvis with IV and without oral contrast. Automated exposure control and it erative reconstruction technique were employed. The dose-length product was 369.30 mGy-cm. 100 mL Omn ipaque 350 was given IV. Findings: VISUALIZED LOWER CHEST: Trace of effusion is seen bilaterally with adjacent atelectatic changes. Slig ht cardiomegaly. UPPER ABDOMINAL ORGANS: Liver: Normal. Gallbladder: Normal. Spleen: Normal. Stomach/duodenum: Normal. Pancreas: Normal. Adrenals: Normal. Kidneys: Bilateral hydronephrotic changes with dilated ureters. No stones seen in the ureters. Hypode nsity seen in the left kidney lower and upper pole which may be focal infection. PELVIC ORGANS: The bladder shows a suprapubic catheter. Increased density is seen in the urinary blad amaury which may indicate hemorrhagic changes with possible infection and pus collection. Clinical evalu ation advised. Air is seen also most likely due to the catheter. BOWEL AND MESENTERY: Colon: No evidence of diverticulitis. Thickened wall of the rectum suggestive of proctitis. STRANDING is seen in the presacral area. Clinical evaluation advised. No evidence of appendicitis. Small Bowel: Normal. No obstruction. Peritoneum/mesentery: No free air. Trace of Free fluid is seen in the left side and the right side of the pelvis. No mesenteric lymphadenopathy. RETROPERITONEUM: Mild atheromatous disease of the abdominal aorta. No retroperitoneal lymphadenopat hy. MUSCULOSKELETAL: Superficial soft tissues: Ulceration seen in the left buttock area with surrounding infection. The ul ceration is extending to the bone of the greater trochanter The superficial soft tissues are normal. Bones: Age appropriate degenerative changes of the spine. Osteopenia of the bones. IMPRESSION: 1. Bilateral basal atelectatic changes with trace of effusion seen bilaterally. 2. Bilateral hydronephrotic changes with dilatation of the ureters. No stones seen. 3. Dense material seen in the urinary bladder which may be blood versus infection and pus formation. Clinical evaluation advised.Suprapubic catheter is seen. 4. Large ulcer in the left buttock area extending to the left greater trochanter. 5. Hypodensities in the left kidney upper and lower pole which may indicate pyelonephritis. 6. Proctitis. Clinical evaluation advised. Reviewed, dictated and finalized at location A. IMPRESSION: 1. Bilateral basal atelectatic changes with trace of effusion seen bilaterally . 2. Bilateral hydronephrotic changes with dilatation of the ureters. No stones seen. 3. Dense material seen in the urinary bladder which may be blood versus infect ion and pus formation. Clinical evaluation advised.Suprapubic catheter is seen. 4. Large ulcer in the left buttock area extending to the left greater trochant er. 5. Hypodensities in the left kidney upper and lower pole which may indicate py elonephritis. 6. Proctitis. Clinical evaluation advised.
--- NOTE | ~2025-01-24 | XR_ITS ---
XR chest 1V portable Ordering provider: Travon Cornelius MD History: 69 years Male with . Hypotension . Comparison: None. FINDINGS: MEDIASTINUM: The cardiac silhouette is moderately enlarged. Congestive evi. Postoperative changes in the mediastinum. PICC line with the tip in the right atrium. LUNGS: No infiltrates, effusions or pneumothorax. Prominent markings in the lower lobes. Atelectasis versus pneumonia is not excluded. OTHER: No free air under the diaphragm. Postoperative changes in the spine. IMPRESSION: Cardiomegaly with congestive evi which may indicate cardiac decompensation. Clinical correlation adv ised. Minimal opacification in the lung bases which may indicate atelectasis versus pneumonia. Reviewed, dictated and finalized at location A. IMPRESSION: Cardiomegaly with congestive evi which may indicate cardiac decompensation. Cl inical correlation advised. Minimal opacification in the lung bases which may indicate atelectasis versus p neumonia.
--- OUTSIDE RECORDS SUMMARY | 2025-01-24 15:05 | XMS_ITS | Clinical Summary ---
Author Organization [facility] [employer] [facility] Address [address] [place] [address] Care Team Providers Care Dispensing Optician Name Role Phone Anuja Frausto MANAGER COSTING-DRAFTER (CAD) ELECTRONIC Primary Care Provider + Source Comments [facility],non-owned Affiliates and Associated Physician Practices is amultiple site organization consisting of ambulatory clinics and hospital sitesin [place], [place], [place] and [place]. This disclosure is being madepursuant to the Care Everywhere program and may not contain all information available regarding this patient. Last updated 18.[facility] Allergies Active Allergy Reactions Criticality Noted Date Comments Lisinopril Other Low 02/06/2017 cough Quinine Other Low 02/06/2017 Immune system shuts down Sulfa Drugs Anaphylaxis High 02/06/2017 Medications * Be aware that medications may not be up to date on this document. Alwaysverify current medications with the patient. bacitracin (BACITRACIN) 500 UNIT/GM ointment 1 tube 0 7 Active oxyCODONE CR 12hr (OXYCONTIN) 10 MG tablet Take 10 mg by mouth BID. 15 tablet 0 7 Active Additional Information Patient not taking.Reported on 01/27/2019 oxyCODONE, immediate release, (ROXICODONE) 5 MG tablet Take 5 mg by mouth q4h PRN. 31 tablet 0 7 Active Additional Information Patient not taking.Reported on 01/27/2019 pantoprazole EC (PROTONIX) 20 MG tablet Take 20 mg by mouth BID. Active simvastatin (ZOCOR) 20 MG tablet Take 20 mg by mouth. Active tiotropium (SPIRIVA HANDIHALER) 18 MCG inhalation capsule Inhale by mouth. Active buPROPion SR 12hr (WELLBUTRIN-SR) 100 MG tablet Take 200 mg by mouth. Active Multiple Vitamins-Mineral s (MULTI-VITAMIN/M INERALS) TABS Take 1 tablet by mouth DAILY. Active metFORMIN (GLUCOPHAGE) 500 MG tablet Take 500 mg by mouth 2 times daily with morning and evening meal. Active divalproex ER 24hr (DEPAKOTE ER) 250 MG tablet Take 500 mg by mouth DAILY. Active aspirin (ASPIRIN) 81 MG chew tablet Take 81 mg by mouth DAILY. Active Azelastine & Fluticasone (DERMACINRX AZENASE YARY) 137 & 50 MCG/ACT THPK [place] into the nose. Active cetirizine (ZYRTEC) 10 MG tablet Take 10 mg by mouth DAILY. Active budesonide (PULMICORT) 0.5 MG/2ML nebulizer suspension 500 mcg BID. Active Apixaban (ELIQUIS PO) Active BACLOFEN PO Active DIGOXIN PO Active IRON PO Active GABAPENTIN PO Active GLIPIZIDE PO Active HYDROXYZINE HCL PO Active Menthol-Zinc Oxide (LANTISEPTIC MULTI-PURPOSE EX) Active Ipratropium [place] HFA (ATROVENT HFA IN) Active Loratadine (CLARITIN [...] vertebra with routine healing 02/02/2019 02/02/2019 Immunizations Immunization Administration Dates Next Due ANTHRAX, HISTORIC VACCINE 11/17/2008,,10/22/2006, 6,02/18/2004,02/04/2004,01/21/2004 HEP A VACCINE, ADULT 04/07/2003,06/09/2002 HEP B VACCINE, ADULT 3 DOSE 12/19/2005, 5,06/08/2005 INFLUENZA A [id number] VACCINE 07/14/2009 INFLUENZA VACCINE 06/11/2019, 0,05/24/2009, 8,07/09/2007,07/16/2006,07/20/2004 [...] Sex Assigned at Male 08/22/2022 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 Legal Sex Male 5:16 PM GIZZARD PULLER Gender Identity Male 08/22/2022 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 Sexual Orientation Straight 08/22/2022 11 :06 AM GIZZARD PULLER Last Filed Vital Signs Vital Sign Reading [...] P M CDT Height 172.7 cm (5' 8) 01/27/2019 10:13 AM CDT Body Mass Index 30.96 01/28/2018 3:18 PM CDT Plan of Treatment Health Maintenance Due Date Last Done Comments COLOGUARD (AGES 45-75) - COLON CA SCREENING 1953 COLON MONITORING 1953 COLONOSCOPY - COLON CA SCREENING 1953 CT COLONOGRAPHY - COLON CA SCREENING 1953 Colorectal Cancer Screening 1953 FIT - COLON CA SCREENING 1953 FLEX SIG - COLON CA SCREENING 1953 HEPATITIS C SCREENING 04/07/1971 PNEUMOCOCCAL VACCINE 50+ (1 of 1 - PCV) 2003 ZOSTER VACCINE (1 of 2) 2003 AAA SCREENING 2018 COVID-19 VACCINE ( - season) 2024 DEPRESSION SCREENING 09/02/2024 INFLUENZA VACCINE (Season Ended) 2025 06/22/2022, 06/11/2019, 06/16/2010, Additional history exists DTAP/TDAP/TD VACCINES (4 - Td or Tdap) 02/06/2027 02/06/2017, 04/08/2003, 04/19/1996 Respiratory Syncytial Virus (RSV) Vaccine Pt: or over 60 yrs (1 - 1-dose 75+ series) 2028 MENINGOCOCCAL GROUPS A/C/Y/W VACCINE Aged Out 05/08/2003 No longer eligible based on patient's age to complete this topic HEPATITIS B VACCINE Completed 12/19/2005, 07/17/2005, 06/08/2005 HIB VACCINE Aged Out No longer eligi ble based on patient's age to complete this topic HPV VACCINE Aged Out No longer eligi ble based on patient's age to complete this topic MENINGOCOCCAL (Group B) VACCINE SHARED DECISION-MAKING Aged Out No longer eligible based on patient's age to complete this topic Insurance MEDICARE [facility] MEDICARE [facility] Care Teams Dispensing Optician Relationship Specialty Start Date End Date Anuja Frausto APRN-DRAFTER (CAD) ELECTRONIC PCP - General 04/30/17
--- OUTSIDE RECORDS SUMMARY | 2025-01-24 15:06 | XMS_ITS | Encounter Summary ---
Author Organization [facility] Healthcare Address [address] [place] [address] Care Team Providers Care Issuer Name Role Phone Adan Serrano MD Primary Care Provider Encounter Details Date Type Department Care Team (Late st Contact Info) Description 11/11/2023 Telephone [facility] Primary Care Medicine Clinic [address] [place] [address] Adan Serrano MD [address] [place] [address] Social History Tobacco Use Types Packs/Day Years Used Date Smoking Tobacco: Never Assessed Personal Safety Answer Date Recorded Getting School Help Needed Not on file 11/02 Sex and Gender Information Value Date Recorded Sex Assigned at Not on file 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
--- OUTSIDE RECORDS SUMMARY | 2025-01-24 15:06 | XMS_ITS | Clinical Summary ---
Author Organization Unknown Care Team Providers Care Hot Punch Press Operator Name Role Phone FALGUNI MADDOX Unavailable Unavailable MARGOT CARVAJAL, ARRON Unavailable Unavailabl e Payers Payer Name Policy Type Policy Number Effective Date Expira tion Date [facility].OPTUM.VACCN.PDGM.[email or web address] [id number] Problems Condition Name Condition Details Condition Category Status Onset Date Resolution Date Last Treatment Date Treating Clinician Comments OTHER CHRONIC OSTEOMYELIT IS, LEFT THIGH Active 01-19 00:00: 00 Allergies, Adverse Reactions, Alerts Allergy Name Allergy Type Status Severity Reaction(s) Onset Date Inactive Date Treating Clinician Comments LISINOPRIL Propensity to adverse reactions Active 01-22 17:27: 07 MORPHINE Propensity to adverse reactions Active 01-22 17:27: 17 QUININE DERIVATIVES Propensity to adverse reactions Active 01-22 17:27: 32 SPIRONOLACTO NE Propensity to adverse reactions Active 01-22 17:27: 40 Vital Signs Vital Name Observation Time Observation Value Commen ts Temperature 2025-01-21 17:25:00.000 97.3 [degF] BMI (%) 2025-01-21 22:02:44.000 28 kg/m2 Height 2025-01-21 22:02:30.000 67 [in_us] Pulse 2025-01-21 17:25:00.000 74 /min O2 Saturation (%) 2025-01-21 17:25:00.000 96 % Respirations 2025-01-21 17:25:00.000 18 /min Weight (lbs) 2025-01-21 22:02:44.000 180 [lb_av] Systolic Blood Pressure 2025-01-21 17:25:00.000 118 mm [Hg] Diastolic Blood Pressure 2025-01-21 17:25:00.000 80 mm [Hg] Plan of Treatment Planned Activity Planned Date Details Comments Future Scheduled Test RN TO OBSE RVE, ASSESS, EVALUATE, AND DEVELOP AN INDIVIDUALIZED PLAN OF CARE. AGENCY MAY ACCEPT ORDERS FROM CONSULTING PHYSICIANS. RN TO OBSERVE AND ASSESS, ARMAMENT INSTALLER/COREMAKING SUPERVISOR TO OBSERVE FOR RISK FOR FALLS AND INSTRUCT IN FALL PREVENTION, HOME SAFETY, MEDICATION MANAGEMENT, INFECTION PREVENTION, AND NUTRITION MANAGEMENT. RN/ARMAMENT INSTALLER/COREMAKING SUPERVISOR NURSE MAY PERFORM O2 SATURATION LEVEL. RN TO ASSESS/ARMAMENT INSTALLER TO OBSERVE PATIENT, WITH NOTIFICATION TO THE PHYSICIAN IF SATURATION IS 90% IN THE ABSENCE OF MORE SPECIFIC PARAMETERS FROM THE PHYSICIAN. AGENCY MAY PERFORM A RESUMPTION OF CARE VISIT FOLLOWING ANY HOSPITAL ADMISSION. RN/ARMAMENT INSTALLER/COREMAKING SUPERVISOR TO MONITOR CO-MORBID CONDITIONS LISTED ON THE PLAN OF CARE AND ANY NEW CONDITIONS THAT PRESENT THEMSELVES DURING THIS EPISODE TO IDENTIFY CHANGES AND INTERVENE TO MINIMIZE COMPLICATIONS. [code = RN TO OBSERVE, ASSESS, EVALUATE, AND DEVELOP AN INDIVIDUALIZED PLAN OF CARE. AGENCY MAY ACCEPT ORDERS FROM CONSULTING PHYSICIANS. RN TO OBSERVE AND ASSESS, ARMAMENT INSTALLER/COREMAKING SUPERVISOR TO OBSERVE FOR RISK FOR FALLS AND INSTRUCT IN FALL PREVENTION, HOME SAFETY, MEDICATION MANAGEMENT, INFECTION PREVENTION, AND NUTRITION MANAGEMENT. RN/ARMAMENT INSTALLER/COREMAKING SUPERVISOR NURSE MAY PERFORM O2 SATURATION LEVEL. RN TO ASSESS/ARMAMENT INSTALLER TO OBSERVE PATIENT, WITH NOTIFICATION TO THE PHYSICIAN IF SATURATION IS 90% IN THE ABSENCE OF MORE SPECIFIC PARAMETERS FROM THE PHYSICIAN. AGENCY MAY PERFORM A RESUMPTION OF CARE VISIT FOLLOWING ANY HOSPITAL ADMISSION. RN/ARMAMENT INSTALLER/COREMAKING SUPERVISOR TO MONITOR CO-MORBID CONDITIONS LISTED ON THE PLAN OF CARE AND ANY NEW CONDITIONS THAT PRESENT THEMSELVES DURING THIS EPISODE TO IDENTIFY CHANGES AND INTERVENE TO MINIMIZE COMPLICATIONS.] Future Scheduled Test COPD MONIT ORING RN/COREMAKING SUPERVISOR/ARMAMENT INSTALLER TO MONITOR FOR SIGNS AND SYMPTOMS OF COPD EXACERBATION, MONITOR FOR ADHERENCE TO MEDICATION AND COPD MANAGEMENT. [code = COPD MONITORING RN/COREMAKING SUPERVISOR/ARMAMENT INSTALLER TO MONITOR FOR SIGNS AND SYMPTOMS OF COPD EXACERBATION, MONITOR FOR ADHERENCE TO MEDICATION AND COPD MANAGEMENT.] Future Scheduled Test DIABETES M ONITORING RN/COREMAKING SUPERVISOR/ARMAMENT INSTALLER TO MONITOR BLOOD SUGAR LOG FOR BLOOD SUGAR READINGS THAT ARE BEING CHECKED BY PATIENT 2 TIMES A DAY. PATIENT THERAPEUTIC BLOOD SUGAR PARAMETERS ARE 70 - 300. REPORT BLOOD SUGARS OUT OF RANGE TO PHYSICIAN. NURSE MAY PERFORM FINGER STICK BLOOD GLUCOSE NEEDED FOR SIGNS AND SYMPTOMS OF HYPO AND HYPERGLYCEMIA. RN/COREMAKING SUPERVISOR/ARMAMENT INSTALLER TO MONITOR ADHERENCE OF PATIENT PERFORMING DIABETIC FOOT CARE AND MAY PERFORM DIABETIC FOOT CARE PRN. RN/COREMAKING SUPERVISOR/ARMAMENT INSTALLER TO MONITOR FOR ADHERENCE TO DIABETIC SELF-CARE AND MANAGEMENT INCLUDING MEDICATIONS. [code = DIABETES MONITORING RN/COREMAKING SUPERVISOR/ARMAMENT INSTALLER TO MONITOR BLOOD SUGAR LOG FOR BLOOD SUGAR READINGS THAT ARE BEING CHECKED BY PATIENT 2 TIMES A DAY. PATIENT THERAPEUTIC BLOOD SUGAR PARAMETERS ARE 70 - 300. REPORT BLOOD SUGARS OUT OF RANGE TO PHYSICIAN. NURSE MAY PERFORM FINGER STICK BLOOD GLUCOSE NEEDED FOR SIGNS AND SYMPTOMS OF HYPO AND HYPERGLYCEMIA. RN/COREMAKING SUPERVISOR/ARMAMENT INSTALLER TO MONITOR ADHERENCE OF PATIENT PERFORMING DIABETIC FOOT CARE AND MAY PERFORM DIABETIC FOOT CARE PRN. RN/COREMAKING SUPERVISOR/ARMAMENT INSTALLER TO MONITOR FOR ADHERENCE TO DIABETIC SELF-CARE AND MANAGEMENT INCLUDING MEDICATIONS.] Future Scheduled Test MEDICATION MANAGEMENT; RN/ARMAMENT INSTALLER/COREMAKING SUPERVISOR TO REVIEW MEDICATIONS FOR INTERACTIONS, EFFECTIVENESS OF DRUG THERAPY, AND SIGNS/SYMPTOMS OF ADVERSE REACTIONS. MAY INSTRUCT AND REINFORCE MEDICATION TEACHING RELATED TO THE USE OF MEDICATIONS, DOSAGE, FREQUENCY, PURPOSE, SIDE EFFECTS, AND TO REPORT COMPLICATIONS. [code = MEDICATION MANAGEMENT; RN/ARMAMENT INSTALLER/COREMAKING SUPERVISOR TO REVIEW MEDICATIONS FOR INTERACTIONS, EFFECTIVENESS OF DRUG THERAPY, AND SIGNS/SYMPTOMS OF ADVERSE REACTIONS. MAY INSTRUCT AND REINFORCE MEDICATION TEACHING RELATED TO THE USE OF MEDICATIONS, DOSAGE, FREQUENCY, PURPOSE, SIDE EFFECTS, AND TO REPORT COMPLICATIONS.] Future Scheduled Test RISK FOR H OSPITALIZATION; RN TO ASSESS/TEACH, COREMAKING SUPERVISOR/ARMAMENT INSTALLER TO OBSERVE/TEACH PATIENT/CAREGIVER ON RISK FOR HOSPITALIZATION/EMERGENCY ROOM VISITS, TEACH SIGNS AND SYMPTOMS THAT PUT PATIENT AT RISK, WHEN TO NOTIFY NURSE/PHYSICIAN OF COMPLICATIONS/DECLINE, AND WHEN TO CALL 911. [code = RISK FOR HOSPITALIZATION; RN TO ASSESS/TEACH, COREMAKING SUPERVISOR/ARMAMENT INSTALLER TO OBSERVE/TEACH PATIENT/CAREGIVER ON RISK FOR HOSPITALIZATION/EMERGENCY ROOM VISITS, TEACH SIGNS AND SYMPTOMS THAT PUT PATIENT AT RISK, WHEN TO NOTIFY NURSE/PHYSICIAN OF COMPLICATIONS/DECLINE, AND WHEN TO CALL 911.] Future Scheduled Test CARDIOVASC ULAR SYSTEM; RN TO ASSESS/TEACH, ARMAMENT INSTALLER/COREMAKING SUPERVISOR TO OBSERVE/TEACH RELATED TO ALTERED CARDIOVASCULAR STATUS TO MINIMIZE COMPLICATIONS AND REDUCE HOSPITALIZATION. [code = CARDIOVASCULAR SYSTEM; RN TO ASSESS/TEACH, ARMAMENT INSTALLER/COREMAKING SUPERVISOR TO OBSERVE/TEACH RELATED TO ALTERED CARDIOVASCULAR STATUS TO MINIMIZE COMPLICATIONS AND REDUCE HOSPITALIZATION.] Future Scheduled Test HYPERTENSI ON MANAGEMENT; RN TO ASSESS AND TEACH, ARMAMENT INSTALLER/COREMAKING SUPERVISOR TO OBSERVE AND TEACH WARNING SIGNS AND SYMPTOMS TO AVOID HOSPITALIZATION. [code = HYPERTENSION MANAGEMENT; RN TO ASSESS AND TEACH, ARMAMENT INSTALLER/COREMAKING SUPERVISOR TO OBSERVE AND TEACH WARNING SIGNS AND SYMPTOMS TO AVOID HOSPITALIZATION.] Future Scheduled Test SKIN INTEG RITY RN TO ASSESS AND TEACH, ARMAMENT INSTALLER/COREMAKING SUPERVISOR TO OBSERVE AND TEACH INTEGUMENTARY STATUS TO IDENTIFY CHANGES AND INTERVENE TO MINIMIZE COMPLICATIONS. PROVIDE SKILLED TEACHING OF GENERAL WOUND AND SKIN CARE AND PREVENTION RELATED TO POTENTIAL FOR OR ACTUAL ALTERED SKIN INTEGRITY [code = SKIN INTEGRITY RN TO ASSESS AND TEACH, ARMAMENT INSTALLER/COREMAKING SUPERVISOR TO OBSERVE AND TEACH INTEGUMENTARY STATUS TO IDENTIFY CHANGES AND INTERVENE TO MINIMIZE COMPLICATIONS. PROVIDE SKILLED TEACHING OF GENERAL WOUND AND SKIN CARE AND PREVENTION RELATED TO POTENTIAL FOR OR ACTUAL ALTERED SKIN INTEGRITY ] Future Scheduled Test RN TO ASSE SS AND TEACH, ARMAMENT INSTALLER/COREMAKING SUPERVISOR TO OBSERVE AND TEACH INTEGUMENTARY STATUS RELATED TO PRESSURE INJURY MANAGEMENT TO IDENTIFY CHANGES AND INTERVENE TO MINIMIZE COMPLICATIONS. PROVIDE SKILLED TEACHING RELATED TO ALTERED SKIN INTEGRITY TO INCLUDE OFFLOADING, FREQUENT POSITION CHANGES, KEEP SKIN CLEAN AND DRY TO PREVENT SKIN BREAKDOWN AND MINIMIZE FRICTION AND SHEARING. REPORT SIGNIFICANT CHANGES IN STATUS TO PHYSICIAN FOR EARLY INTERVENTION. [code = RN TO ASSESS AND TEACH, ARMAMENT INSTALLER/COREMAKING SUPERVISOR TO OBSERVE AND TEACH INTEGUMENTARY STATUS RELATED TO PRESSURE INJURY MANAGEMENT TO IDENTIFY CHANGES AND INTERVENE TO MINIMIZE COMPLICATIONS. PROVIDE SKILLED TEACHING RELATED TO ALTERED SKIN INTEGRITY TO INCLUDE OFFLOADING, FREQUENT POSITION CHANGES, KEEP SKIN CLEAN AND DRY TO PREVENT SKIN BREAKDOWN AND MINIMIZE FRICTION AND SHEARING. REPORT SIGNIFICANT CHANGES IN STATUS TO PHYSICIAN FOR EARLY INTERVENTION.] Future Scheduled Test WOUND MOLE CULAR TESTING PROTOCOL 1 PRN RN/ARMAMENT INSTALLER VISITS MAY BE PERFORMED FOR S/S OF WOUND INFECTION/DETERIORATION/STAGNATION. RN TO ASSESS, ARMAMENT INSTALLER/COREMAKING SUPERVISOR TO OBSERVE AND INITIATE PROTOCOL. RN/ARMAMENT INSTALLER/COREMAKING SUPERVISOR TO INSTRUCT PATIENT AND/OR CAREGIVER ON S/S OF WOUND INFECTION/DETERIORATION/STAGNATION TO REPORT TO NURSE IF NEW OR WORSENING SYMPTOMS. RN/ARMAMENT INSTALLER/COREMAKING SUPERVISOR TO OBTAIN MOLECULAR WOUND TESTING VIA SWAB COLLECTION PER POLICY. [id number] NOTIFY PROVIDER OF RESULTS AND OBTAIN FURTHER ORDERS. [code = WOUND MOLECULAR TESTING PROTOCOL 1 PRN RN/ARMAMENT INSTALLER VISITS MAY BE PERFORMED FOR S/S OF WOUND INFECTION/DETERIORATION/STAGNATION. RN TO ASSESS, ARMAMENT INSTALLER/COREMAKING SUPERVISOR TO OBSERVE AND INITIATE PROTOCOL. RN/ARMAMENT INSTALLER/COREMAKING SUPERVISOR TO INSTRUCT PATIENT AND/OR CAREGIVER ON S/S OF WOUND INFECTION/DETERIORATION/STAGNATION TO REPORT TO NURSE IF NEW OR WORSENING SYMPTOMS. RN/ARMAMENT INSTALLER/COREMAKING SUPERVISOR TO OBTAIN MOLECULAR WOUND TESTING VIA SWAB COLLECTION PER POLICY. [id number] NOTIFY PROVIDER OF RESULTS AND OBTAIN FURTHER ORDERS.] Future Scheduled Test RN/ARMAMENT INSTALLER/CAR EGIVER TO PERFORM/INSTRUCT WOUND CARE TO LEFT TROCHANTER STAGE IV PRESSURE ULCER FOLLOWS: CLEANSE WOUND WITH SALINE WOUND WASH AND DRY WITH GAUZE. APPLY A LIBERAL THICK AMOUNT OF SANTYL TO WOUND BED. MOISTEN 4X4 GAUZE WITH SALINE, OPEN UP GAUZE, AND APPLY OVER SANTYL. APPLY ADDITIONAL SALINE MOISTENED GAUZE TO FILL CAVITY TO THE TOP. COVER WITH BORDER FOAM DRESSING. CHANGE DRESSING DAILY AND PRN FOR LOOSE OR SOILED DRESSING. [code = RN/ARMAMENT INSTALLER/CAREGIVER TO PERFORM/INSTRUCT WOUND CARE TO LEFT TROCHANTER STAGE IV PRESSURE ULCER FOLLOWS: CLEANSE WOUND WITH SALINE WOUND WASH AND DRY WITH GAUZE. APPLY A LIBERAL THICK AMOUNT OF SANTYL TO WOUND BED. MOISTEN 4X4 GAUZE WITH SALINE, OPEN UP GAUZE, AND APPLY OVER SANTYL. APPLY ADDITIONAL SALINE MOISTENED GAUZE TO FILL CAVITY TO THE TOP. COVER WITH BORDER FOAM DRESSING. CHANGE DRESSING DAILY AND PRN FOR LOOSE OR SOILED DRESSING.] Future Scheduled Test PAIN MANAG EMENT; RN TO ASSESS AND TEACH, COREMAKING SUPERVISOR/ARMAMENT INSTALLER TO OBSERVE AND TEACH AND PROVIDE EDUCATION ON PAIN MANAGEMENT TECHNIQUES. [code = PAIN MANAGEMENT; RN TO ASSESS AND TEACH, COREMAKING SUPERVISOR/ARMAMENT INSTALLER TO OBSERVE AND TEACH AND PROVIDE EDUCATION ON PAIN MANAGEMENT TECHNIQUES.] Future Scheduled Test GENITOURIN YOVANA MANAGEMENT; RN TO ASSESS AND TEACH, ARMAMENT INSTALLER/COREMAKING SUPERVISOR TO OBSERVE AND TEACH RELATED TO ALTERED GENITOURINARY STATUS TO MINIMIZE COMPLICATIONS AND REDUCE HOSPITALIZATION. [code = GENITOURINARY MANAGEMENT; RN TO ASSESS AND TEACH, ARMAMENT INSTALLER/COREMAKING SUPERVISOR TO OBSERVE AND TEACH RELATED TO ALTERED GENITOURINARY STATUS TO MINIMIZE COMPLICATIONS AND REDUCE HOSPITALIZATION.] Future Scheduled Test URINARY MO LECULAR TESTING PROTOCOL UP TO 2 PRN RN/ARMAMENT INSTALLER/COREMAKING SUPERVISOR VISITS MAY BE PERFORMED FOR S/S OF UTI. RN TO ASSESS, ARMAMENT INSTALLER/COREMAKING SUPERVISOR TO OBSERVE INITIATION OF UTI PROTOCOL. RN/COREMAKING SUPERVISOR/ARMAMENT INSTALLER TO INSTRUCT PATIENT AND/OR CAREGIVER ON S/S OF UTI TO REPORT TO RN/COREMAKING SUPERVISOR/ARMAMENT INSTALLER IF NEW OR WORSENING SYMPTOMS. DRINK PLENTY OF WATER THROUGHOUT THE DAY TO MAINTAIN HYDRATION (UNLESS CONTRAINDICATED.) URINATE WHEN THE URGE IS FELT, DO NOT WAIT. WASH GENITALS DAILY. WIPE FROM FRONT TO BACK AFTER HAVING A BOWEL MOVEMENT. RN/COREMAKING SUPERVISOR/ARMAMENT INSTALLER TO OBTAIN MOLECULAR URINE TESTING BY OPTION 1 OR OPTION 2 (OPTION 1) RN/COREMAKING SUPERVISOR/ARMAMENT INSTALLER TO OBTAIN U/A WITH REFLEX TO UTI PANEL (MOLECULAR) VIA CLEAN CATCH URINE AND IF UNABLE TO OBTAIN MAY PERFORM AN IN AND OUT CATH. IF PATIENT HAS INDWELLING CATHETER MAY OBTAIN FROM SAMPLING PORT. (OPTION 2) 1 RN/COREMAKING SUPERVISOR/ARMAMENT INSTALLER TO OBTAIN UTI PANEL (MOLECULAR) VIA SWAB COLLECTION METHOD FROM ADULT BRIEF/DIAPER OR PAD IF PATIENT IS INCONTINENT. NOTIFY PROVIDER OF RESULTS AND OBTAIN FURTHER ORDERS. [code = URINARY MOLECULAR TESTING PROTOCOL UP TO 2 PRN RN/ARMAMENT INSTALLER/COREMAKING SUPERVISOR VISITS MAY BE PERFORMED FOR S/S OF UTI. RN TO ASSESS, ARMAMENT INSTALLER/COREMAKING SUPERVISOR TO OBSERVE INITIATION OF UTI PROTOCOL. RN/COREMAKING SUPERVISOR/ARMAMENT INSTALLER TO INSTRUCT PATIENT AND/OR CAREGIVER ON S/S OF UTI TO REPORT TO RN/COREMAKING SUPERVISOR/ARMAMENT INSTALLER IF NEW OR WORSENING SYMPTOMS. DRINK PLENTY OF WATER THROUGHOUT THE DAY TO MAINTAIN HYDRATION (UNLESS CONTRAINDICATED.) URINATE WHEN THE URGE IS FELT, DO NOT WAIT. WASH GENITALS DAILY. WIPE FROM FRONT TO BACK AFTER HAVING A BOWEL MOVEMENT. RN/COREMAKING SUPERVISOR/ARMAMENT INSTALLER TO OBTAIN MOLECULAR URINE TESTING BY OPTION 1 OR OPTION 2 (OPTION 1) RN/COREMAKING SUPERVISOR/ARMAMENT INSTALLER TO OBTAIN U/A WITH REFLEX TO UTI PANEL (MOLECULAR) VIA CLEAN CATCH URINE AND IF UNABLE TO OBTAIN MAY PERFORM AN IN AND OUT CATH. IF PATIENT HAS INDWELLING CATHETER MAY OBTAIN FROM SAMPLING PORT. (OPTION 2) 1 RN/COREMAKING SUPERVISOR/ARMAMENT INSTALLER TO OBTAIN UTI PANEL (MOLECULAR) VIA SWAB COLLECTION METHOD FROM ADULT BRIEF/DIAPER OR PAD IF PATIENT IS INCONTINENT. NOTIFY PROVIDER OF RESULTS AND OBTAIN FURTHER ORDERS.] Future Scheduled Test INDWELLING URINARY CATHETER MANAGEMENT; RN/ARMAMENT INSTALLER/COREMAKING SUPERVISOR TO INSTRUCT PATIENT / CAREGIVER ON SUPRAPUBIC URINARY CATHETER MANAGEMENT INCLUDING CARE OF CATHETER, SIGN AND SYMPTOMS OF COMPLICATIONS, PERINEAL CARE, TUBE AND BAG PLACEMENT, PREVENTION OF INFECTION AND SKIN BREAKDOWN. [code = INDWELLING URINARY CATHETER MANAGEMENT; RN/ARMAMENT INSTALLER/COREMAKING SUPERVISOR TO INSTRUCT PATIENT / CAREGIVER ON SUPRAPUBIC URINARY CATHETER MANAGEMENT INCLUDING CARE OF CATHETER, SIGN AND SYMPTOMS OF COMPLICATIONS, PERINEAL CARE, TUBE AND BAG PLACEMENT, PREVENTION OF INFECTION AND SKIN BREAKDOWN.] Future Scheduled Test FALL REDUC TION MANAGEMENT; RN TO ASSESS AND OBSERVE, ARMAMENT INSTALLER/COREMAKING SUPERVISOR TO OBSERVE FALL RISK FACTORS AND EDUCATE PATIENT/CAREGIVER ON STRATEGIES TO MINIMIZE THE RISK OF FALLING. [code = FALL REDUCTION MANAGEMENT; RN TO ASSESS AND OBSERVE, ARMAMENT INSTALLER/COREMAKING SUPERVISOR TO OBSERVE FALL RISK FACTORS AND EDUCATE PATIENT/CAREGIVER ON STRATEGIES TO MINIMIZE THE RISK OF FALLING.] Future Scheduled Test IV THERAPY MANAGEMENT; RN TO ASSESS AND TEACH, COREMAKING SUPERVISOR/ARMAMENT INSTALLER TO OBSERVE AND TEACH ON IV ACCESS SITE AT [facility], RESPONSE TO MEDICATION. RN/COREMAKING SUPERVISOR/ARMAMENT INSTALLER FOR SKILLED TEACHING REGARDING INFUSION PROCEDURE, CARE OF ACCESS DEVICE, SIGNS AND SYMPTOMS OF ACCESS DEVICE COMPLICATIONS AND, CARE AND USE OF INFUSION EQUIPMENT. [code = IV THERAPY MANAGEMENT; RN TO ASSESS AND TEACH, COREMAKING SUPERVISOR/ARMAMENT INSTALLER TO OBSERVE AND TEACH ON IV ACCESS SITE AT [facility], RESPONSE TO MEDICATION. RN/COREMAKING SUPERVISOR/ARMAMENT INSTALLER FOR SKILLED TEACHING REGARDING INFUSION PROCEDURE, CARE OF ACCESS DEVICE, SIGNS AND SYMPTOMS OF ACCESS DEVICE COMPLICATIONS AND, CARE AND USE OF INFUSION EQUIPMENT.] Future Scheduled Test IV THERAPY ADMINISTRATION; RN TO INFUSE AND/OR TEACH PATIENT/CAREGIVER INFUSION OF CEFEPIME 2GM IV PUSH OVER 10 MIN EVERY 12 HOURS AND VANCOMYCIN 1.25 GM IV OVER 75 MIN VIA ELASTOMERIC BALL EVERY 24 HOURS. RN TO PERFORM/INSTRUCT PATIENT/CAREGIVER TO FLUSH IV ACCESS AT [facility] WITH NS FLUSH 3 - 10 ML AND HEPARIN 10 UNITS/ML 3 - 5 ML USING SASH METHOD. FLUSH WITH 10 - 20 ML NS AFTER LAB DRAWS. RN TO PERFORM SITE CARE FOR PICC LINE WITH DRESSING CHANGE KIT WEEKLY AND PRN FOR LOOSE OR SOILED DRESSING. RN/ARMAMENT INSTALLER/COREMAKING SUPERVISOR TO CLEANSE ACCESS SITE WITH ALCOHOL SWABS OR CHLORAPREP ALLOW TO AIR DRY AND THEN APPLY TRANSPARENT DRESSING INJECTION CAP CHANGE AFTER EACH IV INFUSION AND WITH EACH LAB DRAW AND PRN FOR CONTAMINATION OR MALFUNCTION. EXTENSION TUBING TO BE CHANGED WEEKLY AND WITH EACH LAB DRAW AND PRN FOR PROBLEMS. SKIN PREP PRN; SECUREMENT DEVICE PRN. BIOPATCH PRN FOR REDNESS OR NEUTROPENIA. [code = IV THERAPY ADMINISTRATION; RN TO INFUSE AND/OR TEACH PATIENT/CAREGIVER INFUSION OF CEFEPIME 2GM IV PUSH OVER 10 MIN EVERY 12 HOURS AND VANCOMYCIN 1.25 GM IV OVER 75 MIN VIA ELASTOMERIC BALL EVERY 24 HOURS. RN TO PERFORM/INSTRUCT PATIENT/CAREGIVER TO FLUSH IV ACCESS AT [facility] WITH NS FLUSH 3 - 10 ML AND HEPARIN 10 UNITS/ML 3 - 5 ML USING SASH METHOD. FLUSH WITH 10 - 20 ML NS AFTER LAB DRAWS. RN TO PERFORM SITE CARE FOR PICC LINE WITH DRESSING CHANGE KIT WEEKLY AND PRN FOR LOOSE OR SOILED DRESSING. RN/ARMAMENT INSTALLER/COREMAKING SUPERVISOR TO CLEANSE ACCESS SITE WITH ALCOHOL SWABS OR CHLORAPREP ALLOW TO AIR DRY AND THEN APPLY TRANSPARENT DRESSING INJECTION CAP CHANGE AFTER EACH IV INFUSION AND WITH EACH LAB DRAW AND PRN FOR CONTAMINATION OR MALFUNCTION. EXTENSION TUBING TO BE CHANGED WEEKLY AND WITH EACH LAB DRAW AND PRN FOR PROBLEMS. SKIN PREP PRN; SECUREMENT DEVICE PRN. BIOPATCH PRN FOR REDNESS OR NEUTROPENIA. ] Future Scheduled Test LAB DRAW V IA VASCULAR ACCESS DEVICE; RN TO PERFORM LAB DRAW FROM ACCESS DEVICE. DRAW CBC, CMP, VANCO TROUGH EVERY SATURDAY (EXCEPT FOR 01/25/25 DUE TO HOLIDAY, LABS WILL BE DRAWN 01/26/25) FAX LABS TO [facility] AT [phone], DR FALGUNI JUNIOR AT [phone], AND PHARMACIST [facility] AT [phone]. RN TO DRAW LABS VIA VENIPUNCTURE PRN IF UNABLE TO DRAW VIA VASCULAR ACCESS DEVICE. [code = LAB DRAW VIA VASCULAR ACCESS DEVICE; RN TO PERFORM LAB DRAW FROM ACCESS DEVICE. DRAW CBC, CMP, VANCO TROUGH EVERY SATURDAY (EXCEPT FOR 01/25/25 DUE TO HOLIDAY, LABS WILL BE DRAWN 01/26/25) FAX LABS TO [facility] AT [phone], DR FALGUNI JUNIOR AT [phone], AND PHARMACIST [facility] AT [phone]. RN TO DRAW LABS VIA VENIPUNCTURE PRN IF UNABLE TO DRAW VIA VASCULAR ACCESS DEVICE.] Future Scheduled Test PRN VISITS ; NUMBER OF RN/ARMAMENT INSTALLER/COREMAKING SUPERVISOR VISITS: 3 RN/ARMAMENT INSTALLER/COREMAKING SUPERVISOR TO PERFORM: ASSESSMENT OF PICC LINE, ASSESSMENT OF . ASSESSMENT OF WOUND FOR THE FOLLOWING REASONS: COMPLICATIONS [code = PRN VISITS; NUMBER OF RN/ARMAMENT INSTALLER/COREMAKING SUPERVISOR VISITS: 3 RN/ARMAMENT INSTALLER/COREMAKING SUPERVISOR TO PERFORM: ASSESSMENT OF PICC LINE, ASSESSMENT OF . ASSESSMENT OF WOUND FOR THE FOLLOWING REASONS: COMPLICATIONS] Goal Patient Goal - FOR WOUND TO HEAL Goal Provider Goal - A PLAN OF CARE WILL BE ESTABLISHED THAT MEETS THE PATIENTS NEEDS. PATIENT WILL DEMONSTRATE OXYGEN SATURATION WITHIN NORMAL LIMITS OR PATIENTS OPTIMAL LEVEL ESTABLISHED BY THE PHYSICIAN THROUGHOUT CARE. CHANGES TO CO-MORBID CONDITIONS AND ANY NEW CONDITIONS WILL BE IDENTIFIED AND REPORTED TO THE PHYSICIAN. Goal Provider Goal - COPD WILL BE CONTROLLED THROUGHOUT THE EPISODE. Goal Provider Goal - BLOOD SUGARS WILL REMAIN WITHIN ESTABLISHED RANGES AND DIABETES CONTROLLED THROUGHOUT EPISODE. Goal Provider Goal - PATIENT/CAREGIVER TO VERBALIZE, AND CONSISTENTLY DEMONSTRATE EFFECTIVE, SAFE MANAGEMENT OF MEDICATION INCLUDING KNOWLEDGE OF EFFECTIVENESS, POTENTIAL SIDE EFFECTS AND DRUG REACTIONS AND WHEN TO CONTACT THE APPROPRIATE CARE PROVIDER. PATIENT/CAREGIVER WILL BE ABLE TO VERBALIZE UNDERSTANDING OF MEDICATION REGIMEN AND ACCURATELY TAKE MEDICATIONS PRESCRIBED WITHOUT ADVERSE EFFECTS BY END OF EPISODE. Goal Provider Goal - PATIENT/CAREGIVER WILL VERBALIZE UNDERSTANDING OF SIGNS AND SYMPTOMS THAT PUT THE PATIENT AT RISK FOR HOSPITALIZATION /EMERGENCY ROOM VISITS, WHEN TO NOTIFY NURSE/PHYSICIAN OF COMPLICATIONS/DECLINE AND WHEN TO CALL 911. Goal Provider Goal - PATIENT / CAREGIVER WILL VERBALIZE/DEMONSTRATE UNDERSTANDING OF MEASURES TO MANAGE ALTERED CARDIOVASCULAR STATUS BY END OF EPISODE. Goal Provider Goal - PATIENT / CAREGIVER WILL VERBALIZE/DEMONSTRATE AN ABILITY TO ADHERE TO SELF-MANAGEMENT OF HTN TO MINIMIZE COMPLICATIONS AND AVOID HOSPITALIZATION BY END OF EPISODE. Goal Provider Goal - CHANGES IN SKIN INTEGRITY STATUS WILL BE IDENTIFIED AND REPORTED TO THE PHYSICIAN FOR PROMPT INTERVENTION. PATIENT / CAREGIVER WILL VERBALIZE/DEMONSTRATE ADEQUATE KNOWLEDGE OF INTEGUMENTARY STATUS AND APPROPRIATE MEASURES TO PROMOTE SKIN INTEGRITY AND PREVENT INJURY BY END OF EPISODE. Goal Provider Goal - CHANGES IN SKIN INTEGRITY STATUS RELATED TO PRESSURE INJURY MANAGEMENT WILL BE IDENTIFIED AND REPORTED TO THE PHYSICIAN FOR PROMPT INTERVENTION. PATIENT / CAREGIVER WILL VERBALIZE/DEMONSTRATE ADEQUATE KNOWLEDGE OF INTEGUMENTARY STATUS AND APPROPRIATE MEASURES TO PROMOTE SKIN INTEGRITY AND PREVENT INJURY BY END OF EPISODE. Goal Provider Goal - PATIENT WILL DEMONSTRATE IMPROVEMENT IN S/S OF WOUND INFECTION/DETERIORATION/STAGNATION TO AVOID HOSPITALIZATION. Goal Provider Goal - PATIENT / CAREGIVER WILL VERBALIZE / DEMONSTRATE ABILITY TO PERFORM WOUND CARE. WOUND STATUS WILL IMPROVE EVIDENCED BY A DECREASE IN SIZE, DRAINAGE, ABSENCE OF INFECTION, AND DECREASED PAIN BY END OF EPISODE. Goal Provider Goal - PATIENT / CAREGIVER WILL VERBALIZE / DEMONSTRATE UNDERSTANDING OF PAIN CONTROL MEASURES BY END OF EPISODE Goal Provider Goal - PATIENT / CAREGIVER WILL VERBALIZE/DEMONSTRATE UNDERSTANDING OF MEASURES TO MANAGE ALTERED GENITOURINARY STATUS BY END OF EPISODE. Goal Provider Goal - PATIENT WILL DEMONSTRATE IMPROVEMENT IN S/S OF UTI TO AVOID HOSPITALIZATION. Goal Provider Goal - PATIENT/CAREGIVER WILL VERBALIZE/DEMONSTRATE UNDERSTANDING OF CARE AND MANAGEMENT OF INDWELLING CATHETER BY END OF EPISODE Goal Provider Goal - PATIENT/CAREGIVER WILL VERBALIZE/DEMONSTRATE UNDERSTANDING OF FALL RISK FACTORS AND IMPLEMENT STRATEGIES TO MINIMIZE FALL RISK. PATIENT/CAREGIVER WILL VERBALIZE/DEMONSTRATE AN ABILITY TO ADHERE TO FALL REDUCTION SELF-MANAGEMENT AND LIFE-STYLE CHANGES BY ENDN OF EPISODE. Goal Provider Goal - PATIENT / CAREGIVER WILL VERBALIZE/DEMONSTRATE ABILITY TO CARE FOR ADMINISTER IV ADEQUATELY BY END OF EPISODE Goal Provider Goal - PATIENT WILL VERBALIZE/DEMONSTRATE TOLERANCE TO INFUSION PROCEDURE BY END OF EPISODE. Goal Provider Goal - PATIENT WILL VERBALIZE TOLERANCE TO LAB DRAW FROM VASCULAR ACCESS DEVICE BY END OF EPISODE. Goal Provider Goal - Encounters Start Date/Time End Date/Time Encounter Type Admission Type Attending [facility] Care Department Encounter ID Discharge Date Discharge Status Discharge Condition Discharge Reason Percent Goals Met 2025-01-21 00:00:00 2025-03-21 00:00:00 Outpatient NEW ADMISSION [facility] [id number]
--- OUTSIDE RECORDS SUMMARY | 2025-01-24 15:06 | XMS_ITS | Referral Summary ---
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
--- OUTSIDE RECORDS SUMMARY | 2025-01-24 15:06 | XMS_ITS | Clinical Summary ---
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 Gender Identity Not on file Sexual Orientation [...] 2 - PCV) 02/29/2024 02/28/2023 Influenza Vaccine (Season Ended) 2025 08/28/2023, 06/09/2020, 06/11/2019, Additional history exists DTaP/Tdap/Td Vaccine (3 - Td or Tdap) 02/28/2033 02/28/2023, 02/06/2017, 04/08/2003, Additional history exists Hepatitis B Screening Completed 12/19/2005 , 07/17/2005, 06/08/2005 Insurance [facility] [employer] [facility] Care Teams Cognos Lead Relationship Specialty Start Date End Date Adan Serrano MD [address] [facility] [address] [place] [address] PCP - General Family Medicine 10/25/22
--- OUTSIDE RECORDS SUMMARY | 2025-01-24 15:06 | XMS_ITS | Encounter Summary ---
Author Organization [facility] Address [address] [place] [address] Care Team Providers Care Sap Portal Consultant Name Role Phone Unavailable Primary Care Provider Unavailabl e Encounter Details Date Type Department Care Team (Late st Contact Info) Description 12/17/2024 Results Follow-Up [facility] Emergency Department [address] [place] [address] Val Bender, NIRMALA-STUDENT FINANCIAL AID MANAGER [address] [place] [address] URINE CULTURE Social History Tobacco Use Types Packs/Day Years Used Date Smoking Tobacco: Never Assessed Sex and Gender Information Value Date Recorded Sex Assigned at Not on file Legal Sex Male 2:45 PM CDT Gender Identity Not on file Sexual Orientation Not on file documented as of this encounter Plan of Treatment Not on file documented as of this encounter Visit Diagnoses Not on filedocumented in this encounter
--- OUTSIDE RECORDS SUMMARY | 2025-01-24 15:06 | XMS_ITS | Clinical Summary ---
Author Organization [facility] Address [address] [place] [address] Phone Care Team Providers Care Junior Software Developer Name Role Phone Unavailable Primary Care Provider Unavailabl e Allergies No known active allergies Encounters Date Type Department Care Team Description 01/05/2025 External Device Data STL ABSTRACTION Provider, Abstract 01/05/2025 External Device Data STL ABSTRACTION Provider, Abstract 01/05/2025 External Device Data STL ABSTRACTION Provider, Abstract 12/17/2024 Results Follow-Up [facility] Emergency Department [address] [place] [address] Val Bender, NIRMALA-POLE INCISOR OPERATOR URINE CULTURE 12/15/2024 External Device Data STL ABSTRACTION Provider, Abstract 12/15/2024 External Device Data STL ABSTRACTION Provider, Abstract 12/15/2024 External Device Data STL ABSTRACTION Provider, Abstract 12/10/2024 2:45 PM CDT - 12/11/2024 12:41 AM CDT Emergency [facility] Emergency Department [address] [place] [phone] Sharona Mcclain MD Urinary tract infection associated with cystostomy catheter, initial encounter (Primary Dx) Discharge Disposition: Home or Self Care from Last 3 Months Social History Tobacco Use Types Packs/Day Years Used Date Smoking Tobacco: Never Assessed Sex and Gender Information Value Date Recorded Sex Assigned at Not on file Legal Sex Male 2:45 PM CDT Gender Identity Not on file Sexual Orientation Not on file Last Filed Vital Signs Vital Sign Reading Time Taken Comments Blood Pressure 138/63 12/10/2024 11:41 PM CDT Pulse 86 12/10/2024 11:05 PM CDT Temperature 37.2 C (98.9 F) 12/10/2024 2:56 PM CDT Respiratory Rate 28 12/10/2024 11:41 PM CDT Oxygen Saturation 97% 12/10/2024 11:41 PM CDT Inhaled Oxygen Concentration - - Weight 81.6 kg (180 lb) 12/10/2024 2:59 PM CDT Height 172.7 cm (5' 8) 12/10/2024 2:59 PM CDT Body Mass Index 27.37 12/10/2024 2:59 PM CDT Plan of Treatment Health Maintenance Due Date Last Done Comments DIABETES ANNUAL FOOT EXAM 1971 DIABETES ANNUAL RETINAL EXAM 1971 DIABETES MICROALBUMIN ANNUAL SCREEN 1971 LDL CHOLESTEROL ANNUAL 1971 COLORECTAL SCREENING 1998 Colorectal Cancer Screening 1998 FIT-DNA Q 3 years 1998 FIT/FOBT Q 1 year 1998 Flex Sig/CT Colonography Q 5 years 1998 RSV VACCINE (60+ or ) (1 - Risk 60-74 years 1-dose series) 2013 COVID-19 Vaccine (2023-2 5 season) 2024 06/03/2024, 06/15/2022, 02/22/2022, Additional history exists DIABETES HBA1C Q 6 MONTHS 06/03/2025 12/02/2024 DTAP/TDAP/TD VACCINES (5 - T d or Tdap) 02/28/2033 02/28/2023, 02/06/2017, 02/01/2012, Additional history exists PNEUMOCOCCAL VACCINE 50+ YEARS Completed 0 02/28/2023, 07/03/2017, 08/08/2015, Additional history exists ZOSTER VACCINE Completed 09/06/2023, 03/02, 11/19/2013, Additional history exists INFLUENZA VACCINE Completed 06/03/2024, , 06/10/2019, Additional history exists Procedures Procedure Name Priority Date/Time Associated Diagnosis Comments EXTRA TUBE (URINE ZENG) Stat 12/10/2024 9:34 PM CDT URINALYSIS W/REFLEX MICROSCOPIC Stat 12/10/2024 9:34 PM CDT URINE CULTURE Stat 12/10/2024 9:34 PM CDT SUPRAPUBIC TUBE PLACEMENT Routine 12/10/2024 8:57 PM CDT XR CHEST PA OR AP 1 VW Stat 5:51 PM CDT VALPROIC ACID LEVEL, TOTAL Stat 12/10/2024 4:41 PM CDT AMMONIA LEVEL Stat 12/10/2024 4:41 PM CDT COMPREHENSIVE METABOLIC PANEL Stat 12/10/2024 4:41 PM CDT CBC WITH DIFFERENTIAL Stat 12/10/2024 4:41 PM CDT EKG 12-LEAD Stat 12/10/2024 2:52 PM CDT from Last 3 Months Results * EXTRA TUBE (URINE ZENG) (12/10/2024 9:34 PM CDT) Urine URINE SPECIMEN OBTAINED BY CLEAN CATCH PROCEDURE / Unknown Collection / Unknown 12/10/2024 9:34 PM CDT 12/10/2024 9:40 PM CDT Dirk Bazan MD URINE ORDERABLES Final Result [facility] [employer] [facility] CLIA# [id number] [place] [address] * (ABNORMAL) URINALYSIS WITH REFLEX MICROSCOPIC (12/10/2024 9:34 PM CDT) COLOR UA Yellow Pale to Dark Yellow 12/10/2024 9:59 PM CDT [facility] CLARITY UA Cloudy(A) Clear 12/10/2024 9:59 PM CDT [facility] SPECIFIC GRAVITY UA 1.016 1.003 - 1.035 12/10/2024 9:59 PM CDT [facility] PH UA 8.0 5.0 - 8.0 12/10/2024 9:59 PM CDT [facility] LEUKOCYTE ESTERASE UA 3+(A) Negative 12/10/2024 9:59 PM CDT [facility] NITRITE UA Negative Negative 12/10/2024 9:59 PM CDT [facility] PROTEIN UA 2+(A) Negative 12/10/2024 9:59 PM CDT [facility] GLUCOSE UA Negative Negative 12/10/2024 9:59 PM CDT [facility] KETONES UA 1+(A) Negative 12/10/2024 9:59 PM CDT [facility] UROBILINOGEN UA Normal <2.0 mg/dL 9:59 PM CDT [facility] BILIRUBIN UA Negative Negative 12/10/2024 9:59 PM CDT [facility] BLOOD UA 2+(A) Negative 12/10/2024 9:59 PM CDT [facility] WBC UA >100(A) 0 - 2 /hpf 12/10/2024 9:59 PM CDT [facility] RBC UA >100(A) 0 - 2 /hpf 12/10/2024 9:59 PM CDT [facility] BACTERIA UA Negative Negative /hpf 12/10/2024 9:59 PM CDT [facility] EPITHELIAL CELLS, URINE 0-5 0 - 5 /hpf 12/10/2024 9:59 PM CDT [facility] HYALINE CAST 3-5(A) None Seen, 0-2 /lpf 12/10/2024 9:59 PM CDT [facility] Urine URINE SPECIMEN OBTAINED BY CLEAN CATCH PROCEDURE / Unknown Collection / Unknown 12/10/2024 9:34 PM CDT 12/10/2024 9:40 PM CDT us Dirk Bazan MD URINE ORDERABLES Final Result [facility] CLIA# [id number] [place] [address] * (ABNORMAL) URINE CULTURE (12/10/2024 9:34 PM CDT) CULTURE SERRATIA MARCESCENS(A) JD MCG/ML 12/13/2024 10:06 AM CDT [facility] CULTURE 10,000-50,000 cfu/mL Normal urethral kimmie JD MCG/ML 12/13/2024 10:06 AM CDT [facility] Urine URINE SPECIMEN OBTAINED BY CLEAN CATCH PROCEDURE / Unknown Collection / Unknown 12/10/2024 9:34 PM CDT 12/10/2024 9:40 PM CDT Narrative Organism Antibiotic Method Susceptibility Serratia marcescens CEFAZOLIN JIMENEZ-ASENCIO Resistant Serratia marcescens CEFTRIAXONE JIMENEZ-ASENCIO Susceptible Serratia marcescens CEFTAZIDIME JIMENEZ-ASENCIO Susceptible Serratia marcescens GENTAMICIN JIMENEZ-ASENCIO Susceptible Serratia marcescens CIPROFLOXACIN JIMENEZ-ASENCIO Susceptible Serratia marcescens TRIMETHOPRIM/ SULFAMETHOXAZOLE KIR BY-ASENCIO Susceptible Serratia marcescens AMPICILLIN JIMENEZ-ASENCIO Resistant Serratia marcescens AMPICILLIN/ SULBACTAM JIMENEZ-ASENCIO Resistant Serratia marcescens PIPERACILLIN/ TAZOBACTAM JIMENEZ-BAU ER Susceptible Comment:Aminoglycosides shou ld not be used as monotherapy for infections outside the urinary tract. Consultation with an infectious diseases specialist is recommended. Sharona Mcclain MD MICROBIOLOGY - GENERAL ORDERABL ES Final Result [facility]# [id number] [address] [facility] [place] [address] * Suprapubic Tube Placement (12/10/2024 8:57 PM CDT) Narrative Sharona Mcclain MD - 12/10/2024 8:57 PM CDT Sharona Mcclain MD 12/12/2024 1:45 PM Suprapubic Tube Placement Date/Time: 12/10/2024 8:57 PM Performed by: Sharona Mcclain MD Authorized by: Sharona Mcclain MD Consent: Consent obtained: Verbal Consent given by: Patient Risks, benefits, and alternatives were discussed: yes Risks discussed: Bleeding, bowel perforation, infection and pain [place] protocol: Procedure explained and questions answered to patient or proxy's satisfaction: yes Relevant documents present and verified: yes Required blood products, implants, devices, and special equipment available: yes Site/side marked: yes Immediately prior to procedure, a time out was called: yes Patient identity confirmed: Verbally with patient Sedation: Sedation type: None Anesthesia: Anesthesia method: None Procedure details: Complexity: Simple Catheter type: Mccarty Catheter size: 20 Fr Ultrasound guidance: no Number of attempts: 1 Urine characteristics: Clear Post-procedure details: Procedure completion: Tolerated well, no immediate complications us Sharona Mcclain MD PROCEDURE/MINOR SURGICAL ORDERA BLES Final Result * XR CHEST PA OR AP 1 VW (12/10/2024 5:51 PM CDT) Anatomical Region Laterality Modality Chest Computed Radiogr aphy 12/10/2024 5:52 PM CDT Impressions 12/10/2024 6:03 PM CDT FINDINGS/IMPRESSION: Sternotomy wires are present. Fixation hardware is seen along the thoracic spine. There is pulmonary hyperinflation. There is obscuration of the right base, with small right pleural effusion suggested along with atelectasis/airspace disease. The heart size is normal. DICTATION LOCATION: [address] Narrative 12/10/2024 6:03 PM CDT EXAMINATION: XR CHEST PA OR AP 1 VW DATE: 12/10/2024 5:51 PM HISTORY: Altered Mental Status; COMPARISON: None available Procedure Note Wero Dyer MD - 12/10/2024 EXAMINATION: XR CHEST PA OR AP 1 VW DATE: 12/10/2024 5:51 PM HISTORY: Altered Mental Status; COMPARISON: None available FINDINGS/IMPRESSION: Sternotomy wires are present. Fixation hardware is seen along the thoracic spine. There is pulmonary hyperinflation. There is obscuration of the right base, with small right pleural effusion suggested along with atelectasis/airspace disease. The heart size is normal. DICTATION LOCATION: Location [address] [place] [address] us Sharona Mcclain MD DIAGNOSTIC IMAGING ORDERABLES F inal Result * (ABNORMAL) CBC WITH DIFFERENTIAL (12/10/2024 4:41 PM CDT) [facility] WBC 5.5 4.0 - 9.8 K/uL 12/10/2024 4:59 PM CDT [facility] RBC 4.23(L) 4.50 - 5.40 M/uL 12/10/2024 4:59 PM CDT [facility] HEMOGLOBIN 13.0(L) 13.6 - 16.5 g/dL 12/10/2024 4:59 PM CDT [facility] HEMATOCRIT 40.2 40.0 - 48.0 % 12/10/2024 4:59 PM CDT [facility] MCV 95.0 82.0 - 99.0 fL 12/10/2024 4:59 PM CDT [facility] MCH 30.7 27.2 - 32.6 pg 12/10/2024 4:59 PM CDT [facility] MCHC 32.3 31.5 - 35.5 g/dL 12/10/2024 4:59 PM CDT [facility] RDW 15.4(H) 11.5 - 14.5 % 12/10/2024 4:59 PM CDT [facility] RDW-STDEV 53.3(H) 37.1 - 48.7 fL 12/10/2024 4:59 PM CDT [facility] PLATELETS 152 140 - 350 K/uL 12/10/2024 4:59 PM CDT [facility] MPV 10.6 9.3 - 12.4 fL 12/10/2024 4:59 PM CDT [facility] NEUTROPHILS 64 % 12/10/2024 4:59 PM CDT [facility] LYMPHOCYTES 21 % 12/10/2024 4:59 PM CDT [facility] MONOCYTES 13 % 12/10/2024 4:59 PM CDT [facility] EOSINOPHILS 1 % 12/10/2024 4:59 PM CDT [facility] BASOPHILS 1 % 12/10/2024 4:59 PM CDT [facility] IMMATURE GRANULOCYTES 1 % 12/10/2024 4:59 PM CDT [facility] Comment:IG (Immature Granulo cyte) count includes Metamyelocytes, Myelocytes, and Promyelocytes NEUTROPHIL ABSOLUTE 3.48 1.90 - 7.00 K/uL 12/10/2024 4:59 PM CDT [facility] LYMPHOCYTE ABSOLUTE 1.14 0.70 - 4.50 K/uL 12/10/2024 4:59 PM CDT [facility] MONOCYTE ABSOLUTE 0.71 0.10 - 1.30 K/uL 12/10/2024 4:59 PM CDT [facility] EOSINOPHIL ABSOLUTE 0.07 0.00 - 0.70 K/uL 12/10/2024 4:59 PM CDT [facility] BASOPHILS ABSOLUTE 0.03 0.00 - 0.20 K/uL 12/10/2024 4:59 PM CDT [facility] IMMATURE GRANULOCYTES ABSOLUTE 0.03 0.00 - 0.03 K/uL 12/10/2024 4:59 PM CDT [facility] Blood Venipuncture / Unknown 12/10/2024 4:41 PM CDT 12/10/2024 4:58 PM CDT us Dirk Bazan MD HEMATOLOGY ORDERABLES Final Resu lt [facility] CLIA# [id number] [address] [place] [address] * AMMONIA LEVEL (12/10/2024 4:41 PM CDT) AMMONIA 23.5 16.0 - 60.0 umol/L 12/10/2024 5:18 PM CDT [facility] Comment:Hemolysis present. R esult may be falsely elevated. Blood, venous Venipuncture / Unknown 12/10/2024 4:41 PM CDT 12/10/2024 4:51 PM CDT Dirk Bazan MD CHEMISTRY ORDERABLES Final Resul t Performing Organization Address City/[facility]/ZIP Co de Phone Number [facility] [id number] [address] [place] [address] * VALPROIC ACID LEVEL, TOTAL (12/10/2024 4:41 PM CDT) Pathologist [facility] VALPROIC ACID TOTAL 77.9 50.0 - 100.0 ug/mL 12/10/2024 5:20 PM CDT [facility] Blood Venipuncture / Unknown 12/10/2024 4:41 PM CDT 12/10/2024 4:51 PM CDT Dirk Bazan MD CHEMISTRY ORDERABLES Final Resul t Performing Organization Address City/[facility]/ZIP Co de Phone Number [facility] CLIA# [id number] [place] [address] * (ABNORMAL) COMPREHENSIVE METABOLIC PANEL (12/10/2024 4:41 PM CDT) Pathologist [facility] SODIUM 139 136 - 145 mmol/L 12/10/2024 5:20 PM CDT [facility] - [facility] POTASSIUM 3.6 3.4 - 5.1 mmol/L 12/10/2024 5:20 PM CDT [facility] SERVICES [facility] CHLORIDE 97(L) 98 - 107 mmol/L 12/10/2024 5:20 PM CDT [facility] - [facility] CO2 27 22 - 29 mmol/L 12/10/2024 5:20 PM CDT [facility] SERVICES [facility] CALCIUM 9.4 8.6 - 10.4 mg/dL 12/10/2024 5:20 PM CDT [facility] SERVICES [facility] BUN 15 6 - 20 mg/dL 12/10/2024 5:20 PM CDT [facility] - [facility] CREATININE 0.74 0.67 - 1.17 mg/dL 12/10/2024 5:20 PM CDT [facility] Comment:The GFR result is no t clinically significant on patients <18 or >70 years of age. GLUCOSE 105(H) 74 - 99 mg/dL 12/10/2024 5:20 PM CDT [facility] TOTAL PROTEIN 7.6 6.3 - 8.7 g/dL 12/10/2024 5:20 PM CDT [facility] ALBUMIN 3.7 3.5 - 5.2 g/dL 12/10/2024 5:20 PM CDT [facility] BILIRUBIN TOTAL 0.3 0.2 - 1.1 mg/dL 12/10/2024 5:20 PM CDT [facility] ALKALINE PHOSPHATASE 117 40 - 150 U/L 12/10/2024 5:20 PM CDT [facility] AST 32 0 - 41 U/L 12/10/2024 5:20 PM CDT [facility] ALT 19 0 - 41 U/L 12/10/2024 5:20 PM CDT [facility] GFR >60 mL/min/1.7 3 sq meter 12/10/2024 5:20 PM T [facility] Comment:eGFR calculated with 2020 CKD-EPI equation. Vegetarian diet, extremely high or low muscle mass, and may affect results. Cystatin C with Glomerular Filtration Rate is a suitable alternative for these patients. ANION GAP 15 8 - 16 mmol/L 12/10/2024 5:20 PM CDT [facility] Blood Venipuncture / Unknown 12/10/2024 4:41 PM CDT 12/10/2024 4:51 PM CDT us Dirk Bazan MD CHEMISTRY ORDERABLES Final Resul t [facility] CLIA# [id number] [place] [address] * EKG 12-LEAD (12/10/2024 2:52 PM CDT) 12/10/2024 2:52 PM CDT Narrative INTERFACE SYSTEM - 12/10/2024 3:[place] [address] Test Date: 2024-12-10 Pat Name: MANDEEP MAYS Department: 90 Room: [address] [place] [address] Gender: Male Support Merchandiser: CYNTHIA : 1955 Requested By: Order Number: [id number] Reading MD: Ant Sutherland Measurements Intervals [place] Rate: 69 P: 0 AK: 0 QRS: 29 QRSD: 80 T: 159 QT: 382 QTc: 409 Interpretive Statements Likely NORMAL SINUS RHYTHM ST & T wave abnormality, consider anterolateral ischemia Abnormal ECG No previous ECG available for comparison Electronically Signed On 12-10-2024 15:12:52 CDT by Ant Sutherland Procedure Note Ant Sutherland MD - 12/10/2024 [place] [address] Test Date: 2024-12-10 Pat Name: MANDEEP MAYS Department: 90 Room: [address] [place] [address] Gender: Male Support Merchandiser: CYNTHIA : 1955 Requested By: Order Number: [id number] Reading MD: Ant Sutherland Measurements Intervals [place] Rate: 69 P: 0 AK: 0 QRS: 29 QRSD: 80 T: 159 QT: 382 QTc: 409 Interpretive Statements Likely NORMAL SINUS RHYTHM ST & T wave abnormality, consider anterolateral ischemia Abnormal ECG No previous ECG available for comparison Electronically Signed On 12-10-2024 15:12:52 CDT by Ant Sutherland us Sharona Mcclain MD ECG ORDERABLES Final Result INTERFACE SYSTEM Refer to clinic/hospital department from Last 3 Months Insurance [facility] MCR [place] [employer]
--- NOTE | 2025-01-24 15:11 | ECG_ITS ---
Test Date: 2025-01-24 16:26:08 Measurements Intervals [place] Rate: 69 P: 241 WV: 171 QRS: 20 QRSD: 92 T: 97 QT: 455 QTc: 490 Interpretive Statements SINUS RHYTHM ST DEVIATION AND MODERATE T-WAVE ABNORMALITY, CONSIDER ANTEROLATERAL ISCHEMIA [-0.1+ mV T-WAVE IN V3-V6] No previous ECG available for comparison Electronically Signed On 01-24-2025 20:50:22 CDT by Cayetano Reese M.D.
[2025-01-24] MEDS: LACTATED RINGERS 2,000 ML 999 ML IV CONT (15:46)
[2025-01-24 16:00] LABS: Basophils Percent Auto 0.2 % (0.2-1.2); Eosinophils Absolute Auto 0.1 K/mm3 (0-0.3); Eosinophils Percent Auto 1.2 % (0-4.4); Immature Granulocyte Absolute 0.15 K/mm3 (0.00-0.031); Immature Granulocyte Percent A 1.5 % (0-0.5); Lymphocytes Absolute Auto 1.59 K/mm3 (0.9-3.2); Lymphocytes Percent Auto 15.4 % (18.3-44.2); Mean Corpuscular HGB Conc 31.5 g/dl (32-36); Mean Corpuscular Volume 98.4 fl (80-100); Mean Platelet Volume 11.2 fl (7.4-10.4); Monocytes Percent Auto 9.4 % (2.6-8.5); Neutrophils Absolute Auto 7.5 K/mm3 (1.3-6.7); Neutrophils Percent Auto 72.3 % (45.5-73.1); Platelet Count Result 180 k/mm3 (150-375); Red Blood Count 1.84 M/mm3 (4.6-6.20); Red Cell Distribution Width 18.2 % (11.5-14.5); White Blood Count 10.3 K/mm3 (4.5-10.0)
--- NOTE | 2025-01-24 16:01 | ED_ITS ---
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 Needle] 31 gauge x 3/16 needle See Rx Instructions .ROUTE .MEDSUPPLY Qty: 50 Rx Instructions: As directed pantoprazole 20 mg tablet,delayed release (DR/EC) 20 mg PO BID phenylephrine HCl 0.25 % suppository 1 supp RECTAL BID PRN (Reason: Hemorrhoids) tiotropium bromide 2.5 mcg/actuation mist 2 inh inhalation QAM dantrolene 25 mg Capsule 50 mg PO TID polyethylene glycol 3350 17 gram Powder In Packet 17 g PO DAILY cetirizine 10 mg Tablet 10 mg PO DAILY hydroxyzine HCl 50 mg Tablet 50 mg PO HS PRN (Reason: Insomnia) acetaminophen 650 mg Tablet 650 mg PO DAILY PRN (Reason: Pain) trazodone 100 mg Tablet 100 mg PO HS PRN (Reason: Sleep) ferrous sulfate 325 mg (65 mg iron) Tablet 325 mg PO DAILY ibuprofen 400 mg Tablet 400 mg PO DAILY PRN (Reason: Pain) fluticasone propionate 50 mcg/actuation [place],Suspension 2 spray INTRANASAL BID Rx Instructions: administer into each nostril ipratropium bromide 21 mcg (0.03 %) [place],Non-Aerosol 2 spray INTRANASAL TID Rx Instructions: administer into each nostril docosahexaenoic acid-epa Capsule 2 cap PO BID sodium chloride 0.65 % Aerosol,[place] 2 spray INTRANASAL BID diclofenac sodium [Aleve (diclofenac)] 1 % Gel 2 g TOPICAL QID cholecalciferol (vitamin D3) 50 mcg (2,000 unit) Tablet 50 mcg PO DAILY (DME) Aquacel Foam 3.2 X 3.2 Bandage TOPICAL semaglutide 0.25 mg or 0.5 mg(2 mg/1.5 mL) Pen Injector 1 mg SUBCUT WEEKLY naltrexone 1.5 mg Capsule 3 mg PO DAILY cefdinir 300 mg capsule 300 mg PO Q12H Qty: 10 0RF <Travon Cornelius MD - Last Filed: 01/25/25 17:38> Follow-up/Referrals: Adan Serrano MD [Primary Care Provider] - <Travon Cornelius MD - Last Filed: 01/25/25 17:38>
[2025-01-24 16:06] LABS: Hematocrit 18.1 % (42.0-52.0); Hemoglobin 5.7 g/dL (14.0-18.0)
[2025-01-24 16:09] LABS: Lactic Acid Reflex 2.7 mmol/L (0.7-2.0)
[2025-01-24 16:10] LABS: Color Urine Red (Yellow)
[2025-01-24 16:11] LABS: RBC Urine >100 /hpf (0-2); Squamous Epithelial Cell Urine Rare /hpf (Few)
[2025-01-24 16:12] LABS: INR 1.1
[2025-01-24 16:13] LABS: Alanine Aminotransferase 21 U/L (6-50); Albumin Level 2.5 g/dL (3.5-5.1); Alkaline Phosphatase 132 U/L (38-126); Anion Gap 5 mmol/L (4-12); Aspartate Amino Transferase 29 U/L (17-59); Bilirubin,Total 0.2 mg/dL (0.2-1.3); Blood Urea Nitrogen 38 mg/dL (9-20); CRP 3.9 mg/dL (<1.0); Calcium 7.3 mg/dL (8.4-10.2); Carbon Dioxide 25 mmol/L (22-30); Chloride 104 mmol/L (98-107); Estimated CRCL calculation 62 ml/min; Estimated Glomerular Filt Rate > 60; Glucose 178 mg/dL (65-110); Partial Thromboplastin Time 32.7 Seconds (22.3-36.8); Sodium 134 mmol/L (137-145)
[2025-01-24 16:17] LABS: Add Urine Microscopic? YES; Appearance Urine Turbid (Clear)
[2025-01-24 16:18] LABS: Glucose Urine UA Negative (Negative); Ketones Urine Trace mg/dL (Negative); Protein Urine 2+ mg/dL (Negative); Specific Grav Ur 1.025 (1.001-1.035); pH Urine 6.5 (5.0-9.0)
[2025-01-24 16:19] LABS: Bilirubin Urine 1+ (Negative); Blood Urine 4+ (Negative); Leukocyte Esterase Ur 1+ LEU/UL (Negative); Nitrate Urine Negative (Negative); Urobilinogen Urine 0.2 mg/dL (<2.0)
[2025-01-24 16:38] LABS: Iron 52 ug/dL (49-181)
--- NOTE | 2025-01-24 16:45 | PC.NURSE ---
Per EDP, Dr. Cornelius, pause all fluids at this time.
[2025-01-24 16:47] LABS: Percent Iron Saturation 20 % (20-50)
[2025-01-24 16:58] LABS: NT Pro B Type Natriuretic Pept 562 pg/mL (19.9-100)
--- NOTE | 2025-01-24 17:00 | PC.NURSE ---
Pt. to CT, on a monitor.
[2025-01-24 17:56] LABS: Reflex Lactic Acid Yes or No Add Lactic
[2025-01-24] MEDS: SODIUM CHLORIDE 0.9% IV 250 ML 30 ML IV CONT (18:00)
[2025-01-24] MEDS: TUBING, BLOOD PLUM PUMP TUBING 1 EACH XX (18:01)
--- NOTE | 2025-01-24 18:36 | PC.NURSE ---
[facility]
--- NOTE | 2025-01-24 19:30 | PC.NURSE ---
Dr. Denny from urology calling requesting supplies be at bedside for patient as he is going to come change catheter and CBI.
--- NOTE | 2025-01-24 20:20 | PC.NURSE ---
Dr. Denny from Urology at bedside to perform bladder irrigation on pt.
--- NOTE | 2025-01-24 20:44 | WPDURCON ---
Assessment and Plan Assessment and plan (1) Hematuria: Code(s): R31.9 - Hematuria, unspecified Status: Acute Assessment and Plan: I placed a 22 [place] catheter. I flushed the bladder fully. I was able to remove clots until the urine was clear. I then placed the SPT to CBI. ON a slow drip, the urine through the Mccarty catheter was light pink. 1. Continue CBI 2. Treat for possible UTI - patient [facility] a [facility] 3. Titrate CBI to keep urine light pink 4. Patient may be transferred back to the [facility] which is his primary care location. If he is not transferred, he will need to be NPO after midnight in case surgical intervention with cystoscopy and fulguration is needed if the hematuria does not respond to the initial flushing I performed and the CBI 5. Continue to hold anticoagulation (2) Anemia: Code(s): D64.9 - Anemia, unspecified Status: Acute Assessment and Plan: continue resuscitation per the ER and medical teams Urology Consult Note HPI Date Seen: 01/24/25 Requesting Physician: Dr. Cornelius Primary Care Provider: Adan Serrano MD Consult Narrative Narrative: Romel Wolf is a 69 year old male with a chronic suprapubic tube. He had an exchange at the [facility] that led to malposition in the prostate. Bleeding developed and a new SPT was placed. He presented back to the [facility] hospital yesterday with hematuria and a new SPT was placed. He also recounts flushing was performed, but it is unclear if that was done yesterday or on his prior admission at the [facility]. He presented to [facility] due to hematuria and hypotension. His hemoglobin was found to be 5. He had a CT scan showing mild bilateral hydronephrosis on my review and a large hematoma in the bladder. He has paraplegia and reports no pain in the lower abdominal area. His SPT is draining a little bit of hematuria. Review of Systems Review of Systems: All systems reviewed & are unremarkable except as noted in HPI and below PMFSH Past Medical History Medical History Insulin dependent type 2 diabetes mellitus Chronic anticoagulation Paroxysmal atrial fibrillation Hyperlipidemia Posttraumatic stress disorder Supraventricular tachycardia Coronary artery disease Spinal cord injury Vitamin B12 deficiency Sarcoidosis Surgical History Surgical History History of coronary artery bypass graft x 3 History of thoracic surgery rods in spine History of tonsillectomy Family History Family History Mother Diabetes mellitus Heart disease Father Heart disease Social History Social History Social History: Surrogate medical decision maker: Patti Wolf, spouse. Code status: Full code. Smoking status: Light tobacco smoker Tobacco type: cigars Second hand tobacco smoke exposure: No Alcohol intake: current Drinks per week: 1 Alcohol use details: occasional Substance use: never Substance use type: does not use Do You Feel Safe in your Home?: Yes Lack of Transportation: No Lack of Food: Never True Current Housing: I Have Housing Concerned About Future Housing: No Difficulty Paying Gas/Electric Bills: No Difficulty Paying for Meds: No Currently Unemployed: No Education: Master's Degree or Higher Difficulty w/ Childcare or Family Care: No Living arrangements: with family Additional living arrangements comments: Lives with spouse in [place]. Occupation/Education: retired Additional occupation/education comments: [employer]. Spiritual care concerns: No Meds Home Medications and Allergies Home Medications ?Medication ?Instructions ?Recorded ?Confirmed ?Type Lactobacillus acidophilus 1 1,000 mmu cells PO DAILY 10/03/20 10/19/24 History billion cell capsule acetic acid 0.25 % irrigation 60 ml irrigation Q12H PRN 10/03/20 10/19/24 History solution irrigation apixaban 5 mg tablet 5 mg PO BID 10/03/20 10/19/24 History aspirin 81 mg tablet,delayed 81 mg PO DAILY 10/03/20 10/19/24 History release atorvastatin 80 mg tablet 80 mg PO DAILY 10/03/20 10/19/24 History baclofen 20 mg tablet 20 mg PO TID 10/03/20 10/19/24 History bisacodyl 10 mg rectal suppository 10 mg RECTAL DAILY PRN Constipation 10/03/20 10/19/24 History blood sugar diagnostic (Accu-Chek #10 ea 10/03/20 10/19/24 History Naya Plus test strips) bumetanide 2 mg tablet 2 mg PO BID 10/03/20 10/19/24 History cyanocobalamin (vitamin B-12) 500 1,000 mcg PO DAILY 10/03/20 10/19/24 History mcg tablet divalproex 500 mg tablet,delayed 2,000 mg PO DAILY 10/03/20 10/19/24 History release eplerenone 25 mg tablet 25 mg PO DAILY 10/03/20 10/19/24 History gabapentin 300 mg capsule 300 mg PO BID 10/03/20 10/19/24 History guaifenesin 400 mg tablet 400 mg PO Q8H PRN Congestion 10/03/20 10/19/24 History hydroxyzine HCl 50 mg tablet 25 mg PO DAILY PRN Anxiety 10/03/20 10/19/24 History insulin glargine 100 unit/mL (3 16 unit subcut QAM 10/03/20 10/19/24 History mL) subcutaneous pen metformin 1,000 mg tablet 1,000 mg PO BID 10/03/20 10/19/24 History pantoprazole 20 mg tablet,delayed 20 mg PO BID 10/03/20 10/19/24 History release pen needle, diabetic 31 gauge x #50 ea 10/03/20 10/19/24 History 3/ (BD Ultra-Fine Mini Pen Needle) phenylephrine HCl 0.25 % rectal 1 supp RECTAL BID PRN Hemorrhoids 10/03/20 10/19/24 History suppository tiotropium bromide 2.5 2 inh inhalation QAM 10/03/20 10/19/24 History mcg/actuation mist for inhalation acetaminophen 650 mg tablet 650 mg PO DAILY PRN Pain 12/17/23 10/19/24 History cetirizine 10 mg tablet 10 mg PO DAILY 12/17/23 10/19/24 History cholecalciferol (vitamin D3) 50 50 mcg PO DAILY 12/17/23 10/19/24 History mcg (2,000 unit) tablet dantrolene 25 mg capsule 50 mg PO TID 12/17/23 10/19/24 History diclofenac sodium 1 % topical gel 2 g topical QID 12/17/23 10/19/24 History (Aleve (diclofenac)) docosahexaenoic acid (dha)-epa 2 cap PO BID 12/17/23 10/19/24 History capsule ferrous sulfate 325 mg (65 mg 325 mg PO DAILY 12/17/23 10/19/24 History iron) tablet fluticasone propionate 50 2 spray intranasal BID 12/17/23 10/19/24 History mcg/actuation nasal spray,suspension foam bandage 3.2 X 3.2 (Aquacel 12/17/23 10/19/24 History Foam) hydroxyzine HCl 50 mg tablet 50 mg PO HS PRN Insomnia 12/17/23 10/19/24 History ibuprofen 400 mg tablet 400 mg PO DAILY PRN Pain 12/17/23 10/19/24 History ipratropium bromide 21 mcg (0.03 2 spray intranasal TID 12/17/23 10/19/24 History %) nasal spray naltrexone 1.5 mg capsule 3 mg PO DAILY 12/17/23 10/19/24 History polyethylene glycol 3350 17 gram 17 g PO DAILY 12/17/23 10/19/24 History oral powder packet semaglutide 0.25 mg or 0.5 mg (2 1 mg subcut WEEKLY 12/17/23 10/19/24 History mg/1.5 mL) subcutaneous pen injector sodium chloride 0.65 % nasal spray 2 spray intranasal BID 12/17/23 10/19/24 History aerosol trazodone 100 mg tablet 100 mg PO HS PRN Sleep 12/17/23 10/19/24 History cefdinir 300 mg capsule 300 mg PO Q12H #10 caps 12/20/23 10/19/24 Rx Allergies Allergy/AdvReac Type Severity Reaction Status Date / Time morphine Allergy Unknown Hallucinati Verified 10/19/24 14:29 ng lisinopril Allergy cough Verified 10/19/24 14:29 Sulfa (Sulfonamide AdvReac Severe Anaphylactic Verified 10/19/24 14:29 Antibiotics) Shock quinine AdvReac destroyed Verified 10/19/24 14:29 plateletts and wbc Vital Signs Vital Signs - 24 hr 01/24/25 14:50 01/24/25 16:03 01/24/25 16:34 Temperature 36.4 C Pulse Rate 68 71 72 Respiratory Rate 19 16 20 Blood Pressure 108/53 L 96/72 L 87/39 L Pulse Oximetry 94 98 95 Oxygen Delivery Room Air 01/24/25 17:47 01/24/25 18:10 01/24/25 18:30 Temperature 36.1 C L 36.1 C L Pulse Rate 70 73 72 Respiratory Rate 22 H 24 H 14 Blood Pressure 88/74 L 97/46 L 104/48 L Pulse Oximetry 99 100 100 Oxygen Delivery 01/24/25 19:10 01/24/25 20:10 Temperature 36.2 C L 36.2 C L Pulse Rate 71 79 Respiratory Rate 17 22 H Blood Pressure 97/71 L 86/31 L Pulse Oximetry 100 98 Oxygen Delivery Exam Const: General: cooperative and comfortable Nutritional Appearance: average body habitus HENMT: Head: normal to inspection Eyes: General: appearance normal, both eyes and all related structures : Meatus: Blood at meatus present Urinary Catheter: Urinary Catheter: urine with clots Skin: General skin exam: normal color Neuro: General: No oriented to place Psych: Appearance: grossly normal Results Labs 01/24/25 15:52 01/24/25 15:52 Labs: Short CBC 01/24/25 Range/Units 15:52 WBC 10.3 H (4.5-10.0) K/mm3 Hgb 5.7 L* D (14.0-18.0) g/dL Hct 18.1 L* (42.0-52.0) % Plt Count 180 (150-375) k/mm3 BMP 01/24/25 15:52 Sodium 134 L Potassium 4.0 Chloride 104 Carbon Dioxide 25 BUN 38 H D Creatinine 0.93 Glucose 178 H Calcium 7.3 L Liver Function 01/24/25 Range/Units 15:52 Total Bilirubin 0.2 (0.2-1.3) mg/dL AST 29 (17-59) U/L ALT 21 (6-50) U/L Alkaline Phosphatase 132 H (38-126) U/L Albumin 2.5 L (3.5-5.1) g/dL Urine 01/24/25 Range/Units 15:52 Urine Color Red H (Yellow) Urine Appearance Turbid H (Clear) Urine pH 6.5 (5.0-9.0) Ur Specific [place] 1.025 (1.001-1.035) Urine Protein 2+ H (Negative) mg/dL Urine Glucose (UA) Negative (Negative) mg/dL
--- NOTE | 2025-01-24 20:45 | PC.NURSE ---
Continuous bladder irrigation running per Dr. Denny, Will leave this running until admitted upstairs or transferred to [facility].
[2025-01-25] VITALS (20 sets, daily range): BP systolic 76–101; BP diastolic 39–62; PULSE 71–98; RESP 16–34; O2SAT 91–100
[2025-01-25 01:04] LABS: Hematocrit 24.8 % (42.0-52.0)
== END 2025-01-25 07:54 ==
PROVIDERS: Emergency Medicine; Emergency Provider Student in an Organized Health Care Education/Training Program; PCP Family Medicine
DX: T83.83XA Hemorrhage due to genitourinary prosthetic devices, implants and grafts, initial encounter (principal); R31.9 Hematuria, unspecified; D64.9 Anemia, unspecified; M86.9 Osteomyelitis, unspecified; G82.20 Paraplegia, unspecified; S24.102S Unspecified injury at T2-T6 level of thoracic spinal cord, sequela; I48.91 Unspecified atrial fibrillation; I25.10 Atherosclerotic heart disease of native coronary artery without angina pectoris; I48.0 Paroxysmal atrial fibrillation; E11.9 Type 2 diabetes mellitus without complications; E78.5 Hyperlipidemia, unspecified; E53.8 Deficiency of other specified B group vitamins; D86.9 Sarcoidosis, unspecified; F43.10 Post-traumatic stress disorder, unspecified; F17.200 Nicotine dependence, unspecified, uncomplicated; Z95.1 Presence of aortocoronary bypass graft; Z86.16 Personal history of COVID-19; Z79.4 Long term (current) use of insulin; Z79.01 Long term (current) use of anticoagulants; Z79.82 Long term (current) use of aspirin; Z79.899 Other long term (current) drug therapy; R94.31 Abnormal electrocardiogram [ECG] [EKG]; Z79.85 Long-term (current) use of injectable non-insulin antidiabetic drugs; Z79.84 Long term (current) use of oral hypoglycemic drugs; V49.9XXS Car occupant (driver) (passenger) injured in unspecified traffic accident, sequela; K62.89 Other specified diseases of anus and rectum; R93.422 Abnormal radiologic findings on diagnostic imaging of left kidney; I51.7 Cardiomegaly; R91.8 Other nonspecific abnormal finding of lung field
CPT/HCPCS: 36415; 36430; 51700; 51702; 71045; 74177; 80053; 81001; 83540; 83550; 83605; 83880; 85014; 85018; 85025; 85610; 85730; 86140; 86850; 86900; 86901; 86923; 87040; 87086; 93005; 96361; 96365; 96366; 99285; J0696; J7030; J7050; J7120; P9016; Q9967

== ENCOUNTER 2025-02-16 05:12 | Emergency (ER) | payer OTHER, SELFPAY ==
--- NOTE | ~2025-02-16 | CT_ITS ---
Non-contrast Head CT History: Head injury COMPARISON: 12/17/2023 Technique: Axial non-contrast imaging of the brain was performed. Dose reduction technique was used on this scan by utilizing automated exposure control and iterative reconstruction technique. The dose -length product (DLP) was 681.00 mGy-cm. Findings: There is no evidence of intracranial hemorrhage, mass lesion, or acute infarct. Brain par enchyma appears normal. The ventricles and subarachnoid spaces are normal in size. The calvarium ap pears normal. The visualized paranasal sinuses and mastoid air cells are clear. Impression: No significant abnormality seen. Reviewed, dictated and finalized at location . Impression: No significant abnormality seen.
--- NOTE | ~2025-02-16 | CT_ITS ---
Noncontrast CT scan of the cervical spine Technique: Multiple contiguous axial [address] images of the cervical spine were obtained and rec onstructed in 2D sagittal and coronal planes on the acquisition scanner. Dose reduction technique was used on this scan by utilizing automated exposure control, adjustment of the mA and/or kV according to patient size. The dose-length product (DLP) was 536.86 mGy-cm. Clinical History: Pain Findings: No fractures or dislocations. There is extensive posterior fusion from C2 through the visu alized portion of thoracic spine, at least to the level of T4. There is probable mild left neural for aminal narrowing at C3-C4. There is mild right neural foraminal narrowing at C4-C5. No prevertebral s oft tissue swelling. Impression: No fracture or subluxation of the cervical spine. Extensive posterior fusion from C2 through at least T4. Reviewed, dictated and finalized at [facility]. Impression: No fracture or subluxation of the cervical spine. Extensive posterior fusion from C2 through at least T4.
[2025-02-16 05:11] VITALS: BP 97/57; PULSE 73; RESP 18; TEMP 36.6; O2SAT 100
--- NOTE | 2025-02-16 05:16 | ED_ITS ---
HPI - Fall General Chief Complaint: Fall Stated Complaint: FALL OUT OF BED, ON ELIQUIS Time Seen by Provider: 02/16/25 05:14 History of Present Illness HPI Narrative: Patient has history of paraplegia with fusion from C2-T4, actually fell out of bed today, he does have some pain to his neck that is new as well as to his head when he hit his head. He is on Eliquis. Denies injuries elsewhere Related Data Home Medications ?Medication ?Instructions ?Recorded ?Confirmed ?Last Taken ?Type Lactobacillus acidophilus 1 1,000 mmu cells PO DAILY 10/03/20 10/19/24 Unknown History billion cell capsule acetic acid 0.25 % irrigation 60 ml irrigation Q12H PRN 10/03/20 10/19/24 Unknown History solution irrigation apixaban 5 mg tablet 5 mg PO BID 10/03/20 10/19/24 Unknown History aspirin 81 mg tablet,delayed 81 mg PO DAILY 10/03/20 10/19/24 Unknown History release atorvastatin 80 mg tablet 80 mg PO DAILY 10/03/20 10/19/24 Unknown History baclofen 20 mg tablet 20 mg PO TID 10/03/20 10/19/24 Unknown History bisacodyl 10 mg rectal suppository 10 mg RECTAL DAILY PRN Constipation 10/03/20 10/19/24 Unknown History blood sugar diagnostic (Accu-Chek #10 ea 10/03/20 10/19/24 Unknown History Naya Plus test strips) bumetanide 2 mg tablet 2 mg PO BID 10/03/20 10/19/24 Unknown History cyanocobalamin (vitamin B-12) 500 1,000 mcg PO DAILY 10/03/20 10/19/24 Unknown History mcg tablet divalproex 500 mg tablet,delayed 2,000 mg PO DAILY 10/03/20 10/19/24 Unknown History release eplerenone 25 mg tablet 25 mg PO DAILY 10/03/20 10/19/24 Unknown History gabapentin 300 mg capsule 300 mg PO BID 10/03/20 10/19/24 Unknown History guaifenesin 400 mg tablet 400 mg PO Q8H PRN Congestion 10/03/20 10/19/24 Unknown History hydroxyzine HCl 50 mg tablet 25 mg PO DAILY PRN Anxiety 10/03/20 10/19/24 Unknown History insulin glargine 100 unit/mL (3 16 unit subcut QAM 10/03/20 10/19/24 Unknown History mL) subcutaneous pen metformin 1,000 mg tablet 1,000 mg PO BID 10/03/20 10/19/24 Unknown History pantoprazole 20 mg tablet,delayed 20 mg PO BID 10/03/20 10/19/24 Unknown History release pen needle, diabetic 31 gauge x #50 ea 10/03/20 10/19/24 Unknown History 11/15 (BD Ultra-Fine Mini Pen Needle) phenylephrine HCl 0.25 % rectal 1 supp RECTAL BID PRN Hemorrhoids 10/03/20 10/19/24 Unknown History suppository tiotropium bromide 2.5 2 inh inhalation QAM 10/03/20 10/19/24 Unknown History mcg/actuation mist for inhalation acetaminophen 650 mg tablet 650 mg PO DAILY PRN Pain 12/17/23 10/19/24 Unknown History cetirizine 10 mg tablet 10 mg PO DAILY 12/17/23 10/19/24 Unknown History cholecalciferol (vitamin D3) 50 50 mcg PO DAILY 12/17/23 10/19/24 Unknown History mcg (2,000 unit) tablet dantrolene 25 mg capsule 50 mg PO TID 12/17/23 10/19/24 Unknown History diclofenac sodium 1 % topical gel 2 g topical QID 12/17/23 10/19/24 Unknown History (Aleve (diclofenac)) docosahexaenoic acid (dha)-epa 2 cap PO BID 12/17/23 10/19/24 Unknown History capsule ferrous sulfate 325 mg (65 mg 325 mg PO DAILY 12/17/23 10/19/24 Unknown History iron) tablet fluticasone propionate 50 2 spray intranasal BID 12/17/23 10/19/24 Unknown History mcg/actuation nasal spray,suspension foam bandage 3.2 X 3.2 (Aquacel 12/17/23 10/19/24 Unknown History Foam) hydroxyzine HCl 50 mg tablet 50 mg PO HS PRN Insomnia 12/17/23 10/19/24 Unknown History ibuprofen 400 mg tablet 400 mg PO DAILY PRN Pain 12/17/23 10/19/24 Unknown History ipratropium bromide 21 mcg (0.03 2 spray intranasal TID 12/17/23 10/19/24 Unknown History %) nasal spray naltrexone 1.5 mg capsule 3 mg PO DAILY 12/17/23 10/19/24 Unknown History polyethylene glycol 3350 17 gram 17 g PO DAILY 12/17/23 10/19/24 Unknown History oral powder packet semaglutide 0.25 mg or 0.5 mg (2 1 mg subcut WEEKLY 12/17/23 10/19/24 Unknown History mg/1.5 mL) subcutaneous pen injector sodium chloride 0.65 % nasal spray 2 spray intranasal BID 12/17/23 10/19/24 Unknown History aerosol trazodone 100 mg tablet 100 mg PO HS PRN Sleep 12/17/23 10/19/24 Unknown History Allergies Allergy/AdvReac Type Severity Reaction Status Date / Time morphine Allergy Unknown Hallucinati Verified 10/19/24 14:29 ng lisinopril Allergy cough Verified 10/19/24 14:29 Sulfa (Sulfonamide AdvReac Severe Anaphylactic Verified 10/19/24 14:29 Antibiotics) Shock quinine AdvReac destroyed Verified 10/19/24 14:29 plateletts and wbc Review of Systems Review of Systems: All systems reviewed & are unremarkable except as noted in HPI and below PMFSH Past Medical History Medical History Insulin dependent type 2 diabetes mellitus Chronic anticoagulation Paroxysmal atrial fibrillation Hyperlipidemia Posttraumatic stress disorder Supraventricular tachycardia Coronary artery disease Spinal cord injury Vitamin B12 deficiency Sarcoidosis Surgical History Surgical History History of coronary artery bypass graft x 3 History of thoracic surgery rods in spine History of tonsillectomy Family History Family History Mother Diabetes mellitus Heart disease Father Heart disease Social History Social History Social History: Surrogate medical decision maker: Patti Wolf, spouse. Code status: Full code. Smoking status: Light tobacco smoker Tobacco type: cigars Second hand tobacco smoke exposure: No Alcohol intake: current Drinks per week: 1 Alcohol use details: occasional Substance use: never Substance use type: does not use Do You Feel Safe in your Home?: Yes Lack of Transportation: No Lack of Food: Never True Current Housing: I Have Housing Concerned About Future Housing: No Difficulty Paying Gas/Electric Bills: No Difficulty Paying for Meds: No Currently Unemployed: No Education: Master's Degree or Higher Difficulty w/ Childcare or Family Care: No Living arrangements: with family Additional living arrangements comments: Lives with spouse in [place]. 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 Spiritual care concerns: No Exam Narrative: EXAMINATION OF ORGAN SYSTEMS/BODY AREAS: Constitutional: Vital signs per nursing GENERAL:[No acute distress, non-toxic appearing.] HEAD: No obvious hematoma or abrasions to back of head EYES: EOMI, conjunctiva normal ENT: Hearing grossly intact LUNGS: Nonlabored breathing. HEART: [Regular rate and rhythm] ABD: [Soft], [nontender to palpation] EXT: No obvious deformity SKIN: No obvious contusion to head NEURO: Alert. Paralyzed. PSYCH: Normal affect Course Vital Signs Vital signs: Vital Signs Temperature 98 F 02/16/25 05:11 Pulse Rate 73 02/16/25 05:11 Respiratory Rate 18 02/16/25 05:11 Blood Pressure 97/57 L 02/16/25 05:11 Pulse Oximetry 100 02/16/25 05:11 Oxygen Delivery Room Air 02/16/25 05:11 Temperature 98 F 02/16/25 05:11 Pulse Rate 73 02/16/25 05:11 Respiratory Rate 18 02/16/25 05:11 Blood Pressure 97/57 L 02/16/25 05:11 Pulse Oximetry 100 02/16/25 05:11 Oxygen Delivery Room Air 02/16/25 05:11 MDM - Fall MDM Narrative Medical decision making narrative: Patient presents here after falling out of bed, he has history of paralysis from spinal cord injury, and is on blood thinners and did hit his head. He has a slight headache, Tylenol given, CT head and C-spine obtained thankfully negative for any acute abnormality. He denies any pain or injury anywhere else and on evaluation did not have any obvious deformities or tenderness. Discussed annamarie tony with him, stable for discharge with return precautions and follow-up to PCP Discharge Plan Discharge Clinical Impression: Fall Patient Disposition: Home Condition: Stable Instructions: Fall Prevention for Older Adults (ED), Head Injury (ED) Additional Instructions: Please follow up with your doctor; you can always return for any further issues. Patient Language: Kinyarwanda Prescriptions: No Action (DME) Accu-Chek Naya Plus test strp Strip See Rx Instructions .ROUTE .MEDSUPPLY Qty: 10 Rx Instructions: As directed acetic acid 0.25 % solution 60 ml irrigation Q12H PRN (Reason: irrigation) Rx Instructions: for urinary catheter flush apixaban 5 mg tablet 5 mg PO BID aspirin 81 mg tablet,delayed release (DR/EC) 81 mg PO DAILY atorvastatin 80 mg tablet 80 mg PO DAILY baclofen 20 mg tablet 20 mg PO TID bisacodyl 10 mg suppository 10 mg RECTAL DAILY PRN (Reason: Constipation) bumetanide 2 mg tablet 2 mg PO BID cyanocobalamin (vitamin B-12) 500 mcg tablet 1,000 mcg PO DAILY divalproex 500 mg tablet,delayed release (DR/EC) 2,000 mg PO DAILY eplerenone 25 mg tablet 25 mg PO DAILY gabapentin 300 mg capsule 300 mg PO BID guaifenesin 400 mg tablet 400 mg PO Q8H PRN (Reason: Congestion) hydroxyzine HCl 50 mg tablet 25 mg PO DAILY PRN (Reason: Anxiety) insulin glargine 100 unit/mL (3 mL) insulin pen 16 unit subcut QAM Lactobacillus acidophilus 1 billion cell capsule 1,000 mmu cells PO DAILY Rx Instructions: administer with a meal metformin 1,000 mg tablet 1,000 mg PO BID (DME) pen needle, diabetic [BD Ultra-Fine Mini Pen Needle] 31 gauge x 3/16 needle See Rx Instructions .ROUTE .MEDSUPPLY Qty: 50 Rx Instructions: As directed pantoprazole 20 mg tablet,delayed release (DR/EC) 20 mg PO BID phenylephrine HCl 0.25 % suppository 1 supp RECTAL BID PRN (Reason: Hemorrhoids) tiotropium bromide 2.5 mcg/actuation mist 2 inh inhalation QAM dantrolene 25 mg Capsule 50 mg PO TID polyethylene glycol 3350 17 gram Powder In Packet 17 g PO DAILY cetirizine 10 mg Tablet 10 mg PO DAILY hydroxyzine HCl 50 mg Tablet 50 mg PO HS PRN (Reason: Insomnia) acetaminophen 650 mg Tablet 650 mg PO DAILY PRN (Reason: Pain) trazodone 100 mg Tablet 100 mg PO HS PRN (Reason: Sleep) ferrous sulfate 325 mg (65 mg iron) Tablet 325 mg PO DAILY ibuprofen 400 mg Tablet 400 mg PO DAILY PRN (Reason: Pain) fluticasone propionate 50 mcg/actuation [place],Suspension 2 spray INTRANASAL BID Rx Instructions: administer into each nostril ipratropium bromide 21 mcg (0.03 %) [place],Non-Aerosol 2 spray INTRANASAL TID Rx Instructions: administer into each nostril docosahexaenoic acid-epa Capsule 2 cap PO BID sodium chloride 0.65 % Aerosol,[place] 2 spray INTRANASAL BID diclofenac sodium [Aleve (diclofenac)] 1 % Gel 2 g TOPICAL QID cholecalciferol (vitamin D3) 50 mcg (2,000 unit) Tablet 50 mcg PO DAILY (DME) Aquacel Foam 3.2 X 3.2 Bandage TOPICAL semaglutide 0.25 mg or 0.5 mg(2 mg/1.5 mL) Pen Injector 1 mg SUBCUT WEEKLY naltrexone 1.5 mg Capsule 3 mg PO DAILY cefdinir 300 mg capsule 300 mg PO Q12H Qty: 10 0RF Follow-up/Referrals: Adan Serrano MD [Primary Care Provider] - 2 Days
[2025-02-16] MEDS: ACETAMINOPHEN 500 MG TABLET 1000 MG PO (05:26)
--- NOTE | 2025-02-16 05:30 | PC.NURSE ---
Pt taken to CT accompanied by 2 RNs for transfer.
--- OUTSIDE RECORDS SUMMARY | 2025-02-16 05:57 | XMS_ITS | Encounter Summary ---
Author Organization [facility] Address [address] [place] [address] Care Team Providers Care Import Customer Service Manager Name Role Phone Unavailable Primary Care Provider Unavailabl e Encounter Details Date Type Department Care Team (Late st Contact Info) Description 12/17/2024 Results Follow-Up [facility] Emergency Department [id number] [place] [address] Val Bender, [employer] [id number] [place] [address] URINE CULTURE Social History Tobacco [...]
--- OUTSIDE RECORDS SUMMARY | 2025-02-16 05:57 | XMS_ITS | Clinical Summary ---
Author Organization Unknown Care Team Providers Care Quality Management Nurse Name Role Phone FALGUNI MADDOX Unavailable Unavailable MARGOT CARVAJAL, ARRON Unavailable Unavailabl e Payers Payer Name Policy Type Policy Number Effective Date Expira tion Date [facility].OPTUM.VACCN.PDGM.C.AUTH [id number] Problems Condition Name Condition Details Condition Category Status Onset Date Resolution Date Last Treatment Date Treating Clinician Comments PRESSURE ULCER OF LEFT HIP, STAGE 4 Active 01-14 00:00: 00 TYPE 2 DIABETES MELLITUS WITH OTHER SPECIFIED COMPLICATION Active 01-14 00:00: 00 OTHER CHRONIC OSTEOMYELITI S, LEFT THIGH Active 01-14 00:00: 00 OTH STAPHYLOCOCC US THE CAUSE OF DISEASES CLASSD ELSWHR Active 01-14 00:00: 00 URINARY TRACT INFECTION, SITE NOT SPECIFIED Active 01-11 00:00: 00 HEART FAILURE, UNSPECIFIED Active 09-02 00:00: 00 PARAPLEGIA, COMPLETE Active 09-02 00:00: 00 NEUROMUSCULA R DYSFUNCTION OF BLADDER, UNSPECIFIED Active 09-02 00:00: 00 NEUROGENIC BOWEL, NOT ELSEWHERE CLASSIFIED Active 09-02 00:00: 00 COMPLETE LESION AT T11-T12, SEQUELA Active 09-02 00:00: 00 ENCOUNTER FOR FITTING AND ADJUSTMENT OF URINARY DEVICE Active 01-07 00:00: 00 POLYP OF COLON Active 01-07 00:00: 00 SARCOIDOSIS, UNSPECIFIED Active 09-02 00:00: 00 POST-TRAUMAT IC STRESS DISORDER, UNSPECIFIED Active 09-02 00:00: 00 UNSPECIFIED CYSTOSTOMY STATUS Active 01-21 00:00: 00 ENCOUNTER FOR ADJUSTMENT AND MANAGEMENT OF VAD Active 01-21 00:00: 00 ENCOUNTER FOR THERAPEUTIC DRUG LEVEL MONITORING Active 01-21 00:00: 00 ENOLOGIST (CURRENT) USE OF ANTIBIOTICS Active 01-21 00:00: 00 ENOLOGIST (CURRENT) USE OF INHALED STEROIDS Active 01-21 00:00: 00 ENOLOGIST (CURRENT) USE OF ORAL HYPOGLYCEMIC DRUGS Active 01-21 00:00: 00 Allergies, Adverse Reactions, Alerts Allergy Name Allergy Type Status Severity Reaction(s) Onset Date Inactive Date Treating Clinician Comments LISINOPRIL Propensity to adverse reactions Active 01-22 17:27: 07 MORPHINE Propensity to adverse reactions Active 01-22 17:27: 17 QUININE DERIVATIVES Propensity to adverse reactions Active 01-22 17:27: 32 SPIRONOLACTO NE Propensity to adverse reactions Active 01-22 17:27: 40 Medications Ordered Medication Name Filled Medication Name Start Date Stop Date Current Medication? Ordering Clinician Indication Dosage Frequency Signature (SIG) Comments Components desonide 0.05 % topical ointment 01-18 00:00: 00 01-21 00:00 :00 No [id number] Per instruc tions Per instructio ns (route: topical) Med Classific ation: Dermatolo gical albuterol sulfate 2.5 mg/3 mL (0.083 %) solution for nebulizatio n 01-23 00:00: 00 Yes [id number] WHEEZING OR SHORTNESS OF BREATH 3 mL EVERY 6 HOURS 3 mL EVERY 6 HOURS (route: inhalation ) Med Classific ation: Respirato ry Therapy Agents albuterol sulfate HFA 90 mcg/actuati on aerosol inhaler 01-23 00:00: 00 Yes [id number] WHEEZING OR SHORTNESS OF BREATH 2 puff 4 TIMES DAILY 2 puff 4 TIMES DAILY (route: inhalation ) Med Classific ation: Respirato ry Therapy Agents aspirin 81 mg tablet,yobany yed release 09-25 00:00: 00 Yes [id number] HEART 1 tablet DAILY 1 tablet DAILY (route: oral) Med Classific ation: Hematolog ical Agents atorvastati n 80 mg tablet 3-04 00:00: 00 Yes [id number] CHOLESTEROL 1 tablet DAILY 1 tablet DAILY (route: oral) Med Classific ation: Cardiovas cular Therapy Agents baclofen 20 mg tablet 12-31 00:00: 00 Yes [id number] MUSCLE SPASMS 1 tablet 3 TIMES DAILY 1 tablet 3 TIMES DAILY (route: oral) Med Classific ation: Locomotor System bumetanide 2 mg tablet 2023-09 00:00: 00 Yes [id number] FLUID RETENTION 1 tablet 2 TIMES DAILY 1 tablet 2 TIMES DAILY (route: oral) Med Classific ation: Cardiovas cular Therapy Agents cefepime 2 gm in 20 ml NS 2 gm/20ml NS 01-14 00:00: 00 Yes [id number] OSTEOMYLITI S 2 gm EVERY 12 HOURS 2 gm EVERY 12 HOURS (route: INTRAVENOU S) Med Classific ation: ANTIBIOTI CS/ANTIBA CTERIAL Heparin Lock Flush (Porcine) (PF) 10 unit/mL intravenous syringe 01-14 00:00: 00 Yes [id number] TO KEEP PICC LINE PATENT 3-5 mL DAILY 3-5 mL DAILY (route: intravenou s) Med Classific ation: Hematolog ical Agents Normal Saline Flush 0.9 % injection syringe 01-14 00:00: 00 Yes [id number] TO KEEP PICC LINE PATENT 3-10 mL DAILY 3-10 mL DAILY (route: injection) Med Classific ation: Electroly te Balance-N utritiona l Products vancomycin 1.25 gram intravenous solution 01-14 00:00: 00 01-30 23:59 :00 No [id number] OSTEOMYLITI S 1.25 g DAILY 1.25 g DAILY (route: intravenou s) Med Classific ation: Anti-Infe ctive Agents acetaminoph en 325 mg tablet 2023-0914 00:00: 00 Yes [id number] PAIN 2 tablet EVERY 6 HOURS 2 tablet EVERY 6 HOURS (route: oral) Med Classific ation: Analgesic , Anti-infl ammatory or Antipyret ic acetaminoph en 500 mg tablet 2023-0918 00:00: 00 Yes [id number] PAIN 2 tablet EVERY 6 HOURS 2 tablet EVERY 6 HOURS (route: oral) Med Classific ation: Analgesic , Anti-infl ammatory or Antipyret ic benzonatate 100 mg capsule 2023-09 2-10 00:00: 00 Yes [id number] COUGH 1 capsule 3 TIMES DAILY 1 capsule 3 TIMES DAILY (route: oral) Med Classific ation: Respirato ry Therapy Agents budesonide- formoterol HFA 160 mcg-4.5 mcg/actuati on aerosol inhaler 2023-09 0-09 00:00: 00 Yes [id number] COPD 1 puff 2 TIMES DAILY 1 puff 2 TIMES DAILY (route: inhalation ) Med Classific ation: Respirato ry Therapy Agents bupropion HCl 75 mg tablet 2023-09 1-05 00:00: 00 Yes [id number] MOOD 1 tablet 2 TIMES DAILY 1 tablet 2 TIMES DAILY (route: oral) Med Classific ation: Central Nervous System Agents cyanocobala min (vit B-12) 1,000 mcg sublingual tablet 9-23 00:00: 00 Yes [id number] SUPPLEMENT 1 tablet DAILY 1 tablet DAILY (route: sublingual ) Med Classific ation: Electroly te Balance-N utritiona l Products dantrolene 25 mg capsule 1-24 00:00: 00 Yes [id number] MUSCLE TIGHTNESS 2 capsule 3 TIMES DAILY 2 capsule 3 TIMES DAILY (route: oral) Med Classific ation: Locomotor System divalproex 250 mg tablet,yobany yed release 2-24 00:00: 00 Yes [id number] IMPULSE DYSREGULATI ON 1 tablet DAILY 1 tablet DAILY (route: oral) Med Classific ation: Central Nervous System Agents divalproex 500 mg tablet,yobany yed release 2-24 00:00: 00 Yes [id number] IMPULSE DYSREGULATI ON 4 tablet DAILY 4 tablet DAILY (route: oral) Med Classific ation: Central Nervous System Agents docusate sodium 100 mg capsule 6-25 00:00: 00 Yes [id number] SOFTEN STOOL 1 capsule 2 TIMES DAILY 1 capsule 2 TIMES DAILY (route: oral) Med Classific ation: Gastroint estinal Therapy Agents dofetilide 250 mcg capsule 3-03 00:00: 00 Yes [id number] HEART 1 capsule EVERY 12 HOURS 1 capsule EVERY 12 HOURS (route: oral) Med Classific ation: Cardiovas cular Therapy Agents eplerenone 25 mg tablet 5-24 00:00: 00 Yes [id number] HEART 1 tablet EVERY AM 1 tablet EVERY AM (route: oral) Med Classific ation: Cardiovas cular Therapy Agents Fish Oil 1,000 mg (120 mg-180 mg) capsule 2023-09 0-09 00:00: 00 Yes [id number] HEART 1 capsule DAILY 1 capsule DAILY (route: oral) Med Classific ation: Cardiovas cular Therapy Agents fluticasone propionate 50 mcg/actuati on nasal spray,suspe nsion 6-13 00:00: 00 Yes [id number] SINUS CONGESTION 1 spray 2 TIMES DAILY 1 spray 2 TIMES DAILY (route: nasal) Med Classific ation: Respirato ry Therapy Agents gabapentin 400 mg capsule 8-19 00:00: 00 Yes [id number] PAIN 1 capsule 3 TIMES DAILY 1 capsule 3 TIMES DAILY (route: oral) Med Classific ation: Central Nervous System Agents guaifenesin 400 mg tablet 2023-09 0-21 00:00: 00 Yes [id number] MUCUS THINNING 1 tablet EVERY 8 HOURS 1 tablet EVERY 8 HOURS (route: oral) Med Classific ation: Respirato ry Therapy Agents hydroxyzine HCl 25 mg tablet 2-24 00:00: 00 Yes [id number] ITCHING 1 tablet DAILY 1 tablet DAILY (route: oral) Med Classific ation: Central Nervous System Agents ipratropium bromide 21 mcg (0.03 %) nasal spray 3-20 00:00: 00 Yes [id number] NON ALLERGIC RHINITIS 2 spray 3 TIMES DAILY 2 spray 3 TIMES DAILY (route: nasal) Med Classific ation: Respirato ry Therapy Agents metformin 500 mg tablet 2023-09 1-06 00:00: 00 Yes [id number] DIABETES 1 tablet 2 TIMES DAILY 1 tablet 2 TIMES DAILY (route: oral) Med Classific ation: Endocrine multivitami n tablet 2023-09 2-25 00:00: 00 Yes [id number] SUPPLEMENT 1 tablet DAILY 1 tablet DAILY (route: oral) Med Classific ation: Electroly te Balance-N utritiona l Products naltrexone 50 mg tablet 2-06 00:00: 00 Yes [id number] TO KEEP FROM TAKING OPIOIDS 1.5 tablet DAILY 1.5 tablet DAILY (route: oral) Med Classific ation: Chemical Dependenc y, Agents to Treat nitroglycer in 0.4 mg sublingual tablet 2023-09 1-06 00:00: 00 Yes [id number] CHEST PAIN Per instruc tions NEEDED Per instructio ns NEEDED (route: sublingual ) Med Classific ation: Cardiovas cular Therapy Agents NON-FORMULA RY U/D C 0 8-07 00:00: 00 Yes [id number] COMPOUND PAIN CREAM 0 DIRECTE D 4 TIMES DAILY 0 DIRECTED 4 TIMES DAILY (route: TOPICALLY) Med Classific ation: NONE oxybutynin chloride 5 mg tablet 8-14 00:00: 00 Yes [id number] BLADDER 1 tablet DAILY 1 tablet DAILY (route: oral) Med Classific ation: Genitouri nary Therapy pantoprazol e 20 mg tablet,yobany yed release 2023-09 1- 00:00: 00 Yes [id number] GERD 1 tablet 2 TIMES DAILY 1 tablet 2 TIMES DAILY (route: oral) Med Classific ation: Gastroint estinal Therapy Agents polyethylen e glycol 3350 17 gram/dose oral powder 2023-09 1- 00:00: 00 Yes [id number] CONSTIPATIO N 17 gram DAILY 17 gram DAILY (route: oral) Med Classific ation: Gastroint estinal Therapy Agents potassium chloride ER 20 mEq tablet,exte nded release 2023-09 2-09 00:00: 00 Yes [id number] SUPPLEMENT 1.5 tablet DAILY 1.5 tablet DAILY (route: oral) Med Classific ation: Electroly te Balance-N utritiona l Products Santyl 250 unit/gram topical ointment 5-22 00:00: 00 Yes [id number] WOUND DEBRIDEMENT Per instruc tions DAILY Per instructio ns DAILY (route: topical) Med Classific ation: Dermatolo gical Striverdi Respimat 2.5 mcg/actuati on solution for inhalation 2023-09 2-16 00:00: 00 Yes [id number] COPD 2 puff DAILY 2 puff DAILY (route: inhalation ) Med Classific ation: Respirato ry Therapy Agents trazodone 100 mg tablet 2-24 00:00: 00 Yes [id number] SLEEP 1 tablet BEDTIME 1 tablet BEDTIME (route: oral) Med Classific ation: Central Nervous System Agents acetic acid 0.25 % irrigation solution 2023-09 00:00: 00 Yes [id number] TO KEEP SUPRAPUBIC CATHETER PATENT 60 mL NEEDED 60 mL NEEDED (route: irrigation ) Med Classific ation: Genitouri nary Therapy vancomycin 750 mg intravenous solution 01-30 00:00: 00 Yes [id number] INFECTION 750 mg 2 TIMES DAILY 750 mg 2 TIMES DAILY (route: intravenou s) Med Classific ation: Anti-Infe ctive Agents Vital Signs Vital Name Observation Time Observation Value Commen ts Temperature 2025-02-15 09:34:00.000 97.8 [degF] Temperature 2025-02-12 08:52:00.000 96.9 [degF] Temperature 2025-02-08 09:50:00.000 97.7 [degF] Temperature 2025-02-04 10:06:00.000 97.7 [degF] Temperature 2025-02-01 10:25:00.000 97.7 [degF] Temperature 2025-01-30 12:53:00.000 98.7 [degF] Temperature 2025-01-21 17:25:00.000 97.3 [degF] BMI (%) 2025-01-30 12:53:00.000 25 kg/m2 BMI (%) 2025-01-21 22:02:44.000 28 kg/m2 Height 2025-01-30 12:53:00.000 68 [in_us] Height 2025-01-21 22:02:30.000 67 [in_us] Pulse 2025-02-15 09:34:00.000 84 /min Pulse 2025-02-12 08:52:00.000 82 /min Pulse 2025-02-08 09:50:00.000 78 /min Pulse 2025-02-04 10:06:00.000 76 /min Pulse 2025-02-01 10:25:00.000 76 /min Pulse 2025-01-30 12:53:00.000 80 /min Pulse 2025-01-21 17:25:00.000 74 /min O2 Saturation (%) 2025-02-15 09:34:00.000 95 % O2 Saturation (%) 2025-02-12 08:52:00.000 97 % O2 Saturation (%) 2025-02-08 09:50:00.000 98 % O2 Saturation (%) 2025-02-04 10:06:00.000 95 % O2 Saturation (%) 2025-02-01 10:29:00.000 94 % O2 Saturation (%) 2025-01-30 12:53:00.000 96 % O2 Saturation (%) 2025-01-21 17:25:00.000 96 % Respirations 2025-02-15 09:34:00.000 18 /min Respirations 2025-02-12 08:52:00.000 16 /min Respirations 2025-02-08 09:50:00.000 18 /min Respirations 2025-02-04 10:06:00.000 16 /min Respirations 2025-02-01 10:25:00.000 18 /min Respirations 2025-01-30 12:53:00.000 18 /min Respirations 2025-01-21 17:25:00.000 18 /min Weight (lbs) 2025-02-15 09:34:00.000 161 [lb_av] Weight (lbs) 2025-02-12 08:53:00.000 161 [lb_av] Weight (lbs) 2025-02-08 09:50:00.000 162 [lb_av] Weight (lbs) 2025-02-04 10:08:00.000 165 [lb_av] Weight (lbs) 2025-02-01 10:29:00.000 165 [lb_av] Weight (lbs) 2025-01-30 12:53:00.000 165 [lb_av] Weight (lbs) 2025-01-21 22:02:44.000 180 [lb_av] Systolic Blood Pressure 2025-02-15 09:34:00.000 108 mm [Hg] Systolic Blood Pressure 2025-02-12 08:52:00.000 108 mm [Hg] Systolic Blood Pressure 2025-02-08 09:50:00.000 120 mm [Hg] Systolic Blood Pressure 2025-02-04 10:06:00.000 108 mm [Hg] Systolic Blood Pressure 2025-02-01 10:25:00.000 100 mm [Hg] Systolic Blood Pressure 2025-01-30 12:53:00.000 116 mm [Hg] Systolic Blood Pressure 2025-01-21 17:25:00.000 118 mm [Hg] Diastolic Blood Pressure 2025-02-15 09:34:00.000 60 mm [Hg] Diastolic Blood Pressure 2025-02-12 08:52:00.000 72 mm [Hg] Diastolic Blood Pressure 2025-02-08 09:50:00.000 64 mm [Hg] Diastolic Blood Pressure 2025-02-04 10:06:00.000 64 mm [Hg] Diastolic Blood Pressure 2025-02-01 10:25:00.000 60 mm [Hg] Diastolic Blood Pressure 2025-01-30 12:53:00.000 60 mm [Hg] Diastolic Blood Pressure 2025-01-21 17:25:00.000 80 mm [Hg] Plan of Treatment Planned Activity Planned Date Details Comments Future Scheduled Test RN TO OBSE RVE, ASSESS, EVALUATE, AND DEVELOP AN INDIVIDUALIZED PLAN OF CARE. AGENCY MAY ACCEPT ORDERS FROM CONSULTING PHYSICIANS. RN TO OBSERVE AND ASSESS, NUCLEAR PROCESS ENGINEER/RECEIVING DOCK CHECKER TO OBSERVE FOR RISK FOR FALLS AND INSTRUCT IN FALL PREVENTION, HOME SAFETY, MEDICATION MANAGEMENT, INFECTION PREVENTION, AND NUTRITION MANAGEMENT. RN/NUCLEAR PROCESS ENGINEER/RECEIVING DOCK CHECKER NURSE MAY PERFORM O2 SATURATION LEVEL. RN TO ASSESS/NUCLEAR PROCESS ENGINEER TO OBSERVE PATIENT, WITH NOTIFICATION TO THE PHYSICIAN IF SATURATION IS 90% IN THE ABSENCE OF MORE SPECIFIC PARAMETERS FROM THE PHYSICIAN. AGENCY MAY PERFORM A RESUMPTION OF CARE VISIT FOLLOWING ANY HOSPITAL ADMISSION. RN/NUCLEAR PROCESS ENGINEER/RECEIVING DOCK CHECKER TO MONITOR CO-MORBID CONDITIONS LISTED ON THE PLAN OF CARE AND ANY NEW CONDITIONS THAT PRESENT THEMSELVES DURING THIS EPISODE TO IDENTIFY CHANGES AND INTERVENE TO MINIMIZE COMPLICATIONS. [code = RN TO OBSERVE, ASSESS, EVALUATE, AND DEVELOP AN INDIVIDUALIZED PLAN OF CARE. AGENCY MAY ACCEPT ORDERS FROM CONSULTING PHYSICIANS. RN TO OBSERVE AND ASSESS, NUCLEAR PROCESS ENGINEER/RECEIVING DOCK CHECKER TO OBSERVE FOR RISK FOR FALLS AND INSTRUCT IN FALL PREVENTION, HOME SAFETY, MEDICATION MANAGEMENT, INFECTION PREVENTION, AND NUTRITION MANAGEMENT. RN/NUCLEAR PROCESS ENGINEER/RECEIVING DOCK CHECKER NURSE MAY PERFORM O2 SATURATION LEVEL. RN TO ASSESS/NUCLEAR PROCESS ENGINEER TO OBSERVE PATIENT, WITH NOTIFICATION TO THE PHYSICIAN IF SATURATION IS 90% IN THE ABSENCE OF MORE SPECIFIC PARAMETERS FROM THE PHYSICIAN. AGENCY MAY PERFORM A RESUMPTION OF CARE VISIT FOLLOWING ANY HOSPITAL ADMISSION. RN/NUCLEAR PROCESS ENGINEER/RECEIVING DOCK CHECKER TO MONITOR CO-MORBID CONDITIONS LISTED ON THE PLAN OF CARE AND ANY NEW CONDITIONS THAT PRESENT THEMSELVES DURING THIS EPISODE TO IDENTIFY CHANGES AND INTERVENE TO MINIMIZE COMPLICATIONS.] Future Scheduled Test COPD MONIT ORING RN/RECEIVING DOCK CHECKER/NUCLEAR PROCESS ENGINEER TO MONITOR FOR SIGNS AND SYMPTOMS OF COPD EXACERBATION, MONITOR FOR ADHERENCE TO MEDICATION AND COPD MANAGEMENT. [code = COPD MONITORING RN/RECEIVING DOCK CHECKER/NUCLEAR PROCESS ENGINEER TO MONITOR FOR SIGNS AND SYMPTOMS OF COPD EXACERBATION, MONITOR FOR ADHERENCE TO MEDICATION AND COPD MANAGEMENT.] Future Scheduled Test DIABETES M ONITORING RN/RECEIVING DOCK CHECKER/NUCLEAR PROCESS ENGINEER TO MONITOR BLOOD SUGAR LOG FOR BLOOD SUGAR READINGS THAT ARE BEING CHECKED BY PATIENT 2 TIMES A DAY. PATIENT THERAPEUTIC BLOOD SUGAR PARAMETERS ARE 70 - 300. REPORT BLOOD SUGARS OUT OF RANGE TO PHYSICIAN. NURSE MAY PERFORM FINGER STICK BLOOD GLUCOSE NEEDED FOR SIGNS AND SYMPTOMS OF HYPO AND HYPERGLYCEMIA. RN/RECEIVING DOCK CHECKER/NUCLEAR PROCESS ENGINEER TO MONITOR ADHERENCE OF PATIENT PERFORMING DIABETIC FOOT CARE AND MAY PERFORM DIABETIC FOOT CARE PRN. RN/RECEIVING DOCK CHECKER/NUCLEAR PROCESS ENGINEER TO MONITOR FOR ADHERENCE TO DIABETIC SELF-CARE AND MANAGEMENT INCLUDING MEDICATIONS. [code = DIABETES MONITORING RN/RECEIVING DOCK CHECKER/NUCLEAR PROCESS ENGINEER TO MONITOR BLOOD SUGAR LOG FOR BLOOD SUGAR READINGS THAT ARE BEING CHECKED BY PATIENT 2 TIMES A DAY. PATIENT THERAPEUTIC BLOOD SUGAR PARAMETERS ARE 70 - 300. REPORT BLOOD SUGARS OUT OF RANGE TO PHYSICIAN. NURSE MAY PERFORM FINGER STICK BLOOD GLUCOSE NEEDED FOR SIGNS AND SYMPTOMS OF HYPO AND HYPERGLYCEMIA. RN/RECEIVING DOCK CHECKER/NUCLEAR PROCESS ENGINEER TO MONITOR ADHERENCE OF PATIENT PERFORMING DIABETIC FOOT CARE AND MAY PERFORM DIABETIC FOOT CARE PRN. RN/RECEIVING DOCK CHECKER/NUCLEAR PROCESS ENGINEER TO MONITOR FOR ADHERENCE TO DIABETIC SELF-CARE AND MANAGEMENT INCLUDING MEDICATIONS.] Future Scheduled Test MEDICATION MANAGEMENT; RN/NUCLEAR PROCESS ENGINEER/RECEIVING DOCK CHECKER TO REVIEW MEDICATIONS FOR INTERACTIONS, EFFECTIVENESS OF DRUG THERAPY, AND SIGNS/SYMPTOMS OF ADVERSE REACTIONS. MAY INSTRUCT AND REINFORCE MEDICATION TEACHING RELATED TO THE USE OF MEDICATIONS, DOSAGE, FREQUENCY, PURPOSE, SIDE EFFECTS, AND TO REPORT COMPLICATIONS. [code = MEDICATION MANAGEMENT; RN/NUCLEAR PROCESS ENGINEER/RECEIVING DOCK CHECKER TO REVIEW MEDICATIONS FOR INTERACTIONS, EFFECTIVENESS OF DRUG THERAPY, AND SIGNS/SYMPTOMS OF ADVERSE REACTIONS. MAY INSTRUCT AND REINFORCE MEDICATION TEACHING RELATED TO THE USE OF MEDICATIONS, DOSAGE, FREQUENCY, PURPOSE, SIDE EFFECTS, AND TO REPORT COMPLICATIONS.] Future Scheduled Test RISK FOR H OSPITALIZATION; RN TO ASSESS/TEACH, RECEIVING DOCK CHECKER/NUCLEAR PROCESS ENGINEER TO OBSERVE/TEACH PATIENT/CAREGIVER ON RISK FOR HOSPITALIZATION/EMERGENCY ROOM VISITS, TEACH SIGNS AND SYMPTOMS THAT PUT PATIENT AT RISK, WHEN TO NOTIFY NURSE/PHYSICIAN OF COMPLICATIONS/DECLINE, AND WHEN TO CALL 911. [code = RISK FOR HOSPITALIZATION; RN TO ASSESS/TEACH, RECEIVING DOCK CHECKER/NUCLEAR PROCESS ENGINEER TO OBSERVE/TEACH PATIENT/CAREGIVER ON RISK FOR HOSPITALIZATION/EMERGENCY ROOM VISITS, TEACH SIGNS AND SYMPTOMS THAT PUT PATIENT AT RISK, WHEN TO NOTIFY NURSE/PHYSICIAN OF COMPLICATIONS/DECLINE, AND WHEN TO CALL 911.] Future Scheduled Test CARDIOVASC ULAR SYSTEM; RN TO ASSESS/TEACH, NUCLEAR PROCESS ENGINEER/RECEIVING DOCK CHECKER TO OBSERVE/TEACH RELATED TO ALTERED CARDIOVASCULAR STATUS TO MINIMIZE COMPLICATIONS AND REDUCE HOSPITALIZATION. [code = CARDIOVASCULAR SYSTEM; RN TO ASSESS/TEACH, NUCLEAR PROCESS ENGINEER/RECEIVING DOCK CHECKER TO OBSERVE/TEACH RELATED TO ALTERED CARDIOVASCULAR STATUS TO MINIMIZE COMPLICATIONS AND REDUCE HOSPITALIZATION.] Future Scheduled Test HYPERTENSI ON MANAGEMENT; RN TO ASSESS AND TEACH, NUCLEAR PROCESS ENGINEER/RECEIVING DOCK CHECKER TO OBSERVE AND TEACH WARNING SIGNS AND SYMPTOMS TO AVOID HOSPITALIZATION. [code = HYPERTENSION MANAGEMENT; RN TO ASSESS AND TEACH, NUCLEAR PROCESS ENGINEER/RECEIVING DOCK CHECKER TO OBSERVE AND TEACH WARNING SIGNS AND SYMPTOMS TO AVOID HOSPITALIZATION.] Future Scheduled Test SKIN INTEG RITY RN TO ASSESS AND TEACH, NUCLEAR PROCESS ENGINEER/RECEIVING DOCK CHECKER TO OBSERVE AND TEACH INTEGUMENTARY STATUS TO IDENTIFY CHANGES AND INTERVENE TO MINIMIZE COMPLICATIONS. PROVIDE SKILLED TEACHING OF GENERAL WOUND AND SKIN CARE AND PREVENTION RELATED TO POTENTIAL FOR OR ACTUAL ALTERED SKIN INTEGRITY [code = SKIN INTEGRITY RN TO ASSESS AND TEACH, NUCLEAR PROCESS ENGINEER/RECEIVING DOCK CHECKER TO OBSERVE AND TEACH INTEGUMENTARY STATUS TO IDENTIFY CHANGES AND INTERVENE TO MINIMIZE COMPLICATIONS. PROVIDE SKILLED TEACHING OF GENERAL WOUND AND SKIN CARE AND PREVENTION RELATED TO POTENTIAL FOR OR ACTUAL ALTERED SKIN INTEGRITY ] Future Scheduled Test RN TO ASSE SS AND TEACH, NUCLEAR PROCESS ENGINEER/RECEIVING DOCK CHECKER TO OBSERVE AND TEACH INTEGUMENTARY STATUS RELATED [...] [code = RN TO ASSESS AND TEACH, NUCLEAR PROCESS ENGINEER/RECEIVING DOCK CHECKER TO OBSERVE AND TEACH INTEGUMENTARY STATUS RELATED [...] WOUND MOLE CULAR TESTING PROTOCOL 1 PRN RN/NUCLEAR PROCESS ENGINEER VISITS MAY BE PERFORMED FOR S/S OF WOUND INFECTION/DETERIORATION/STAGNATION. RN TO ASSESS, NUCLEAR PROCESS ENGINEER/RECEIVING DOCK CHECKER TO OBSERVE AND INITIATE PROTOCOL. RN/NUCLEAR PROCESS ENGINEER/RECEIVING DOCK CHECKER TO INSTRUCT PATIENT AND/OR CAREGIVER ON S/S OF WOUND INFECTION/DETERIORATION/STAGNATION TO REPORT TO NURSE IF NEW OR WORSENING SYMPTOMS. RN/NUCLEAR PROCESS ENGINEER/RECEIVING DOCK CHECKER TO OBTAIN MOLECULAR WOUND TESTING VIA SWAB COLLECTION PER POLICY. [id number] NOTIFY PROVIDER OF RESULTS AND OBTAIN FURTHER ORDERS. [code = WOUND MOLECULAR TESTING PROTOCOL 1 PRN RN/NUCLEAR PROCESS ENGINEER VISITS MAY BE PERFORMED FOR S/S OF WOUND INFECTION/DETERIORATION/STAGNATION. RN TO ASSESS, NUCLEAR PROCESS ENGINEER/RECEIVING DOCK CHECKER TO OBSERVE AND INITIATE PROTOCOL. RN/NUCLEAR PROCESS ENGINEER/RECEIVING DOCK CHECKER TO INSTRUCT PATIENT AND/OR CAREGIVER ON S/S OF WOUND INFECTION/DETERIORATION/STAGNATION TO REPORT TO NURSE IF NEW OR WORSENING SYMPTOMS. RN/NUCLEAR PROCESS ENGINEER/RECEIVING DOCK CHECKER TO OBTAIN MOLECULAR WOUND TESTING VIA SWAB COLLECTION PER POLICY. [id number] NOTIFY PROVIDER OF RESULTS AND OBTAIN FURTHER ORDERS.] Future Scheduled Test RN/NUCLEAR PROCESS ENGINEER/CAR EGIVER TO PERFORM/INSTRUCT WOUND CARE TO LEFT [...] FOR LOOSE OR SOILED DRESSING. [code = RN/NUCLEAR PROCESS ENGINEER/CAREGIVER TO PERFORM/INSTRUCT WOUND CARE TO LEFT TROCHANTER [...] MANAG EMENT; RN TO ASSESS AND TEACH, RECEIVING DOCK CHECKER/NUCLEAR PROCESS ENGINEER TO OBSERVE AND TEACH AND PROVIDE EDUCATION ON PAIN MANAGEMENT TECHNIQUES. [code = PAIN MANAGEMENT; RN TO ASSESS AND TEACH, RECEIVING DOCK CHECKER/NUCLEAR PROCESS ENGINEER TO OBSERVE AND TEACH AND PROVIDE EDUCATION ON PAIN MANAGEMENT TECHNIQUES.] Future Scheduled Test GENITOURIN YOVANA MANAGEMENT; RN TO ASSESS AND TEACH, NUCLEAR PROCESS ENGINEER/RECEIVING DOCK CHECKER TO OBSERVE AND TEACH RELATED TO ALTERED GENITOURINARY STATUS TO MINIMIZE COMPLICATIONS AND REDUCE HOSPITALIZATION. [code = GENITOURINARY MANAGEMENT; RN TO ASSESS AND TEACH, NUCLEAR PROCESS ENGINEER/RECEIVING DOCK CHECKER TO OBSERVE AND TEACH RELATED TO ALTERED GENITOURINARY STATUS TO MINIMIZE COMPLICATIONS AND REDUCE HOSPITALIZATION.] Future Scheduled Test URINARY MO LECULAR TESTING PROTOCOL UP TO 2 PRN RN/NUCLEAR PROCESS ENGINEER/RECEIVING DOCK CHECKER VISITS MAY BE PERFORMED FOR S/S OF UTI. RN TO ASSESS, NUCLEAR PROCESS ENGINEER/RECEIVING DOCK CHECKER TO OBSERVE INITIATION OF UTI PROTOCOL. RN/RECEIVING DOCK CHECKER/NUCLEAR PROCESS ENGINEER TO INSTRUCT PATIENT AND/OR CAREGIVER ON S/S OF UTI TO REPORT TO RN/RECEIVING DOCK CHECKER/NUCLEAR PROCESS ENGINEER IF NEW OR WORSENING SYMPTOMS. DRINK PLENTY OF WATER THROUGHOUT THE DAY TO MAINTAIN HYDRATION (UNLESS CONTRAINDICATED.) URINATE WHEN THE URGE IS FELT, DO NOT WAIT. WASH GENITALS DAILY. WIPE FROM FRONT TO BACK AFTER HAVING A BOWEL MOVEMENT. RN/RECEIVING DOCK CHECKER/NUCLEAR PROCESS ENGINEER TO OBTAIN MOLECULAR URINE TESTING BY OPTION 1 OR OPTION 2 (OPTION 1) RN/RECEIVING DOCK CHECKER/NUCLEAR PROCESS ENGINEER TO OBTAIN U/A WITH REFLEX TO UTI PANEL (MOLECULAR) VIA CLEAN CATCH URINE AND IF UNABLE TO OBTAIN MAY PERFORM AN IN AND OUT CATH. IF PATIENT HAS INDWELLING CATHETER MAY OBTAIN FROM SAMPLING PORT. (OPTION 2) 1 RN/RECEIVING DOCK CHECKER/NUCLEAR PROCESS ENGINEER TO OBTAIN UTI PANEL (MOLECULAR) VIA SWAB COLLECTION METHOD FROM ADULT BRIEF/DIAPER OR PAD IF PATIENT IS INCONTINENT. NOTIFY PROVIDER OF RESULTS AND OBTAIN FURTHER ORDERS. [code = URINARY MOLECULAR TESTING PROTOCOL UP TO 2 PRN RN/NUCLEAR PROCESS ENGINEER/RECEIVING DOCK CHECKER VISITS MAY BE PERFORMED FOR S/S OF UTI. RN TO ASSESS, NUCLEAR PROCESS ENGINEER/RECEIVING DOCK CHECKER TO OBSERVE INITIATION OF UTI PROTOCOL. RN/RECEIVING DOCK CHECKER/NUCLEAR PROCESS ENGINEER TO INSTRUCT PATIENT AND/OR CAREGIVER ON S/S OF UTI TO REPORT TO RN/RECEIVING DOCK CHECKER/NUCLEAR PROCESS ENGINEER IF NEW OR WORSENING SYMPTOMS. DRINK PLENTY OF WATER THROUGHOUT THE DAY TO MAINTAIN HYDRATION (UNLESS CONTRAINDICATED.) URINATE WHEN THE URGE IS FELT, DO NOT WAIT. WASH GENITALS DAILY. WIPE FROM FRONT TO BACK AFTER HAVING A BOWEL MOVEMENT. RN/RECEIVING DOCK CHECKER/NUCLEAR PROCESS ENGINEER TO OBTAIN MOLECULAR URINE TESTING BY OPTION 1 OR OPTION 2 (OPTION 1) RN/RECEIVING DOCK CHECKER/NUCLEAR PROCESS ENGINEER TO OBTAIN U/A WITH REFLEX TO UTI PANEL (MOLECULAR) VIA CLEAN CATCH URINE AND IF UNABLE TO OBTAIN MAY PERFORM AN IN AND OUT CATH. IF PATIENT HAS INDWELLING CATHETER MAY OBTAIN FROM SAMPLING PORT. (OPTION 2) 1 RN/RECEIVING DOCK CHECKER/NUCLEAR PROCESS ENGINEER TO OBTAIN UTI PANEL (MOLECULAR) VIA SWAB COLLECTION METHOD FROM ADULT BRIEF/DIAPER OR PAD IF PATIENT IS INCONTINENT. NOTIFY PROVIDER OF RESULTS AND OBTAIN FURTHER ORDERS.] Future Scheduled Test INDWELLING URINARY CATHETER MANAGEMENT; RN/NUCLEAR PROCESS ENGINEER/RECEIVING DOCK CHECKER TO INSTRUCT PATIENT / CAREGIVER ON SUPRAPUBIC URINARY CATHETER MANAGEMENT INCLUDING CARE OF CATHETER, SIGN AND SYMPTOMS OF COMPLICATIONS, PERINEAL CARE, TUBE AND BAG PLACEMENT, PREVENTION OF INFECTION AND SKIN BREAKDOWN. [code = INDWELLING URINARY CATHETER MANAGEMENT; RN/NUCLEAR PROCESS ENGINEER/RECEIVING DOCK CHECKER TO INSTRUCT PATIENT / CAREGIVER ON SUPRAPUBIC URINARY CATHETER MANAGEMENT INCLUDING CARE OF CATHETER, SIGN AND SYMPTOMS OF COMPLICATIONS, PERINEAL CARE, TUBE AND BAG PLACEMENT, PREVENTION OF INFECTION AND SKIN BREAKDOWN.] Future Scheduled Test FALL REDUC TION MANAGEMENT; RN TO ASSESS AND OBSERVE, NUCLEAR PROCESS ENGINEER/RECEIVING DOCK CHECKER TO OBSERVE FALL RISK FACTORS AND EDUCATE PATIENT/CAREGIVER ON STRATEGIES TO MINIMIZE THE RISK OF FALLING. [code = FALL REDUCTION MANAGEMENT; RN TO ASSESS AND OBSERVE, NUCLEAR PROCESS ENGINEER/RECEIVING DOCK CHECKER TO OBSERVE FALL RISK FACTORS AND EDUCATE PATIENT/CAREGIVER ON STRATEGIES TO MINIMIZE THE RISK OF FALLING.] Future Scheduled Test IV THERAPY MANAGEMENT; RN TO ASSESS AND TEACH, RECEIVING DOCK CHECKER/NUCLEAR PROCESS ENGINEER TO OBSERVE AND TEACH ON IV ACCESS SITE AT RUE, RESPONSE TO MEDICATION. RN/RECEIVING DOCK CHECKER/NUCLEAR PROCESS ENGINEER FOR SKILLED TEACHING REGARDING INFUSION PROCEDURE, CARE OF ACCESS DEVICE, SIGNS AND SYMPTOMS OF ACCESS DEVICE COMPLICATIONS AND, CARE AND USE OF INFUSION EQUIPMENT. [code = IV THERAPY MANAGEMENT; RN TO ASSESS AND TEACH, RECEIVING DOCK CHECKER/NUCLEAR PROCESS ENGINEER TO OBSERVE AND TEACH ON IV ACCESS SITE AT RUE, RESPONSE TO MEDICATION. RN/RECEIVING DOCK CHECKER/NUCLEAR PROCESS ENGINEER FOR SKILLED TEACHING REGARDING INFUSION PROCEDURE, CARE [...] PERFORM/INSTRUCT PATIENT/CAREGIVER TO FLUSH IV ACCESS AT RUE WITH NS FLUSH 3 - 10 ML AND HEPARIN 10 UNITS/ML 3 - 5 ML USING SASH METHOD. FLUSH WITH 10 - 20 ML NS AFTER LAB DRAWS. RN TO PERFORM SITE CARE FOR PICC LINE WITH DRESSING CHANGE KIT WEEKLY AND PRN FOR LOOSE OR SOILED DRESSING. RN/NUCLEAR PROCESS ENGINEER/RECEIVING DOCK CHECKER TO CLEANSE ACCESS SITE WITH ALCOHOL SWABS [...] PERFORM/INSTRUCT PATIENT/CAREGIVER TO FLUSH IV ACCESS AT RUE WITH NS FLUSH 3 - 10 ML AND HEPARIN 10 UNITS/ML 3 - 5 ML USING SASH METHOD. FLUSH WITH 10 - 20 ML NS AFTER LAB DRAWS. RN TO PERFORM SITE CARE FOR PICC LINE WITH DRESSING CHANGE KIT WEEKLY AND PRN FOR LOOSE OR SOILED DRESSING. RN/NUCLEAR PROCESS ENGINEER/RECEIVING DOCK CHECKER TO CLEANSE ACCESS SITE WITH ALCOHOL SWABS [...] WILL BE DRAWN 01/26/25) FAX LABS TO [facility] AT [phone], DR FALGUNI JUNIOR AT [phone], AND PHARMACIST SILVIA VALLADARES AT [phone]. RN TO DRAW LABS VIA VENIPUNCTURE PRN IF UNABLE TO DRAW VIA VASCULAR ACCESS DEVICE. [code = LAB DRAW VIA VASCULAR ACCESS DEVICE; RN TO PERFORM LAB DRAW FROM ACCESS DEVICE. DRAW CBC, CMP, VANCO TROUGH EVERY SATURDAY (EXCEPT FOR 01/25/25 DUE TO HOLIDAY, LABS WILL BE DRAWN 01/26/25) FAX LABS TO [facility] AT [phone], DR FALGUNI JUNIOR AT [phone], AND PHARMACIST SILVIA VALLADARES AT [phone]. RN TO DRAW LABS VIA VENIPUNCTURE PRN IF UNABLE TO DRAW VIA VASCULAR ACCESS DEVICE.] Future Scheduled Test PRN VISITS ; NUMBER OF RN/NUCLEAR PROCESS ENGINEER/RECEIVING DOCK CHECKER VISITS: 3 RN/NUCLEAR PROCESS ENGINEER/RECEIVING DOCK CHECKER TO PERFORM: ASSESSMENT OF PICC LINE, ASSESSMENT OF . ASSESSMENT OF WOUND FOR THE FOLLOWING REASONS: COMPLICATIONS [code = PRN VISITS; NUMBER OF RN/NUCLEAR PROCESS ENGINEER/RECEIVING DOCK CHECKER VISITS: 3 RN/NUCLEAR PROCESS ENGINEER/RECEIVING DOCK CHECKER TO PERFORM: ASSESSMENT OF PICC LINE, ASSESSMENT OF . ASSESSMENT OF WOUND FOR THE FOLLOWING REASONS: COMPLICATIONS] Goal 2025-01-30 Patient Goal - FOR WOUND TO HEAL Goal Patient Goal - FOR WOUND TO [...] End Date/Time Encounter Type Admission Type Attending [facility] Care Department Encounter ID Discharge Date Discharge Status Discharge Condition Discharge Reason Percent Goals Met 2025-01-21 00:00:00 2025-03-21 00:00:00 Outpatient NEW ADMISSION [facility] [id number] 32.35
--- OUTSIDE RECORDS SUMMARY | 2025-02-16 05:57 | XMS_ITS | Referral Summary ---
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
--- OUTSIDE RECORDS SUMMARY | 2025-02-16 05:57 | XMS_ITS | Clinical Summary ---
Author Organization [facility] Address [address] [place] [address] Phone Care Team Providers Care Journeyman Power Plant Operator Name Role Phone Unavailable Primary Care Provider Unavailabl e Allergies No known active allergies Encounters Date Type Department Care Team Description 02/02/2025 External Device Data [facility] ABSTRACTION Provider, Abstract 02/02/2025 External Device Data [facility] ABSTRACTION Provider, Abstract 01/05/2025 External Device Data [facility] ABSTRACTION Provider, Abstract 01/05/2025 External Device Data [facility] ABSTRACTION Provider, Abstract 01/05/2025 External Device Data [facility] ABSTRACTION Provider, Abstract 12/17/2024 Results Follow-Up [facility] Emergency Department [address] [place] [phone] Val Bender, COLLISION REPAIRER-ELECTRIC MOTOR REPAIR SUPERVISOR URINE CULTURE 12/15/2024 External Device Data [facility] ABSTRACTION Provider, Abstract 12/15/2024 External Device Data [facility] ABSTRACTION Provider, Abstract 12/15/2024 External Device Data [facility] ABSTRACTION Provider, Abstract 12/10/2024 2:45 PM CDT - 12/11/2024 12:41 AM CDT Emergency [facility] Emergency Department [address] [place] [phone] Sharona Mcclain MD Urinary tract infection associated [...] Dirk Bazan MD URINE ORDERABLES Final Result [facility] [employer] [facility] CLIA# [id number] [place] [address] * (ABNORMAL) URINALYSIS WITH REFLEX MICROSCOPIC (12/10/2024 9:34 PM CDT) COLOR UA Yellow Pale to Dark Yellow 12/10/2024 9:59 PM CDT [facility] CLARITY UA Cloudy(A) Clear 12/10/2024 9:59 PM CDT [facility] SPECIFIC GRAVITY UA 1.016 1.003 - 1.035 12/10/2024 9:59 PM CDT [facility] PH UA 8.0 5.0 - 8.0 12/10/2024 9:59 PM CDT [facility] LEUKOCYTE ESTERASE UA 3+(A) Negative 12/10/2024 9:59 PM CDT [facility] NITRITE UA Negative Negative 12/10/2024 9:59 PM CDT [facility] PROTEIN UA 2+(A) Negative 12/10/2024 9:59 PM CDT [facility] GLUCOSE UA Negative Negative 12/10/2024 9:59 PM CDT [facility] KETONES UA 1+(A) Negative 12/10/2024 9:59 PM CDT [facility] UROBILINOGEN UA Normal <2.0 mg/dL 9:59 PM CDT [facility] BILIRUBIN UA Negative Negative 12/10/2024 9:59 PM CDT [facility] BLOOD UA 2+(A) Negative 12/10/2024 9:59 PM CDT [facility] WBC UA >100(A) 0 - 2 /hpf 12/10/2024 9:59 PM CDT [facility] RBC UA >100(A) 0 - 2 /hpf 12/10/2024 9:59 PM CDT [facility] BACTERIA UA Negative Negative /hpf 12/10/2024 9:59 PM CDT [facility] EPITHELIAL CELLS, URINE 0-5 0 - 5 /hpf 12/10/2024 9:59 PM CDT [facility] HYALINE CAST 3-5(A) None Seen, 0-2 /lpf 12/10/2024 9:59 PM CDT [facility] Urine URINE SPECIMEN OBTAINED BY CLEAN CATCH PROCEDURE / Unknown Collection / Unknown 12/10/2024 9:34 PM CDT 12/10/2024 9:40 PM CDT us Dirk Bazan MD URINE ORDERABLES Final Result [facility] CLIA# [id number] [place] [id number] * (ABNORMAL) URINE CULTURE (12/10/2024 9:34 PM CDT) CULTURE SERRATIA MARCESCENS(A) JD MCG/ML 12/13/2024 10:06 AM CDT [facility] CULTURE 10,000-50,000 cfu/mL Normal urethral kimmie JD MCG/ML 12/13/2024 10:06 AM CDT [facility] Urine URINE SPECIMEN OBTAINED BY CLEAN CATCH [...] with an infectious diseases specialist is recommended. us Sharona Mcclain MD MICROBIOLOGY - GENERAL ORDERABL ES Final Result [facility] [employer] [id number] [address] [place] [address] * Suprapubic Tube Placement (12/10/2024 8:57 PM CDT) Narrative Sharona Mcclain MD - 12/10/2024 8:57 PM CDT Sharona Mcclain MD 12/12/2024 1:45 PM Suprapubic Tube Placement Date/Time: 12/10/2024 8:57 PM Performed by: Sharona Mcclain MD Authorized by: Sharona Mcclain MD Consent: Consent obtained: Verbal Consent given by: Patient Risks, benefits, and alternatives were discussed: yes Risks discussed: Bleeding, bowel perforation, infection and pain [place] protocol: Procedure explained and questions answered to [...] Procedure completion: Tolerated well, no immediate complications Sharona Mcclain MD PROCEDURE/MINOR SURGICAL ORDERA BLES [...] heart size is normal. DICTATION LOCATION: Location 7 [facility] 12/10/2024 6:03 PM CDT EXAMINATION: XR CHEST [...] heart size is normal. DICTATION LOCATION: Location 7 - [facility] us Sharona Mcclain MD DIAGNOSTIC IMAGING ORDERABLES F inal Result * (ABNORMAL) CBC WITH DIFFERENTIAL (12/10/2024 4:41 PM CDT) WBC 5.5 4.0 - 9.8 K/uL 12/10/2024 4:59 PM CDT [facility] RBC 4.23(L) 4.50 - 5.40 M/uL 12/10/2024 4:59 PM CDT [facility] HEMOGLOBIN 13.0(L) 13.6 - 16.5 g/dL 12/10/2024 4:59 PM CDT [facility] HEMATOCRIT 40.2 40.0 - 48.0 % 12/10/2024 4:59 PM CDT [facility] MCV 95.0 82.0 - 99.0 fL 12/10/2024 4:59 PM CDT [facility] MCH 30.7 27.2 - 32.6 pg 12/10/2024 4:59 PM CDT [facility] MCHC 32.3 31.5 - 35.5 g/dL 12/10/2024 4:59 PM CDT [facility] RDW 15.4(H) 11.5 - 14.5 % 12/10/2024 4:59 PM CDT [facility] RDW-STDEV 53.3(H) 37.1 - 48.7 fL 12/10/2024 4:59 PM CDT [facility] PLATELETS 152 140 - 350 K/uL 12/10/2024 4:59 PM CDT [facility] MPV 10.6 9.3 - 12.4 fL 12/10/2024 4:59 PM CDT [facility] NEUTROPHILS 64 % 12/10/2024 4:59 PM CDT [facility] LYMPHOCYTES 21 % 12/10/2024 4:59 PM CDT [facility] MONOCYTES 13 % 12/10/2024 4:59 PM CDT [facility] EOSINOPHILS 1 % 12/10/2024 4:59 PM CDT [facility] BASOPHILS 1 % 12/10/2024 4:59 PM CDT [facility] IMMATURE GRANULOCYTES 1 % 12/10/2024 4:59 PM CDT [facility] Comment:IG (Immature Granulo cyte) count includes Metamyelocytes, Myelocytes, and Promyelocytes NEUTROPHIL ABSOLUTE 3.48 1.90 - 7.00 K/uL 12/10/2024 4:59 PM CDT [facility] LYMPHOCYTE ABSOLUTE 1.14 0.70 - 4.50 K/uL 12/10/2024 4:59 PM CDT [facility] MONOCYTE ABSOLUTE 0.71 0.10 - 1.30 K/uL 12/10/2024 4:59 PM CDT [facility] EOSINOPHIL ABSOLUTE 0.07 0.00 - 0.70 K/uL 12/10/2024 4:59 PM CDT [facility] BASOPHILS ABSOLUTE 0.03 0.00 - 0.20 K/uL 12/10/2024 4:59 PM CDT [facility] IMMATURE GRANULOCYTES ABSOLUTE 0.03 0.00 - 0.03 K/uL 12/10/2024 4:59 PM CDT [facility] Blood Venipuncture / Unknown 12/10/2024 4:41 PM CDT 12/10/2024 4:58 PM CDT us Dirk Bazan MD HEMATOLOGY ORDERABLES Final Resu lt [facility] CLIA# [id number] [address] [place] [address] * AMMONIA LEVEL (12/10/2024 4:41 PM CDT) AMMONIA 23.5 16.0 - 60.0 umol/L 12/10/2024 5:18 PM CDT [facility] Comment:Hemolysis present. R esult may be falsely elevated. Blood, venous Venipuncture / Unknown 12/10/2024 4:41 PM CDT 12/10/2024 4:51 PM CDT Dirk Bazan MD CHEMISTRY ORDERABLES Final Resul t [facility] CLIA# [id number] [address] [place] [address] * VALPROIC ACID LEVEL, TOTAL (12/10/2024 4:41 PM CDT) [facility] VALPROIC ACID TOTAL 77.9 50.0 - 100.0 ug/mL 12/10/2024 5:20 PM CDT [facility] Blood Venipuncture / Unknown 12/10/2024 4:41 PM CDT 12/10/2024 4:51 PM CDT Dirk Bazan MD CHEMISTRY ORDERABLES Final Resul t [facility] CLIA# [id number] [address] [place] [address] * (ABNORMAL) COMPREHENSIVE METABOLIC PANEL (12/10/2024 4:41 PM CDT) [facility] SODIUM 139 136 - 145 mmol/L 12/10/2024 5:20 PM CDT [facility] POTASSIUM 3.6 3.4 - 5.1 mmol/L 12/10/2024 5:20 PM CDT [facility] CHLORIDE 97(L) 98 - 107 mmol/L 12/10/2024 5:20 PM CDT [facility] CO2 27 22 - 29 mmol/L 12/10/2024 5:20 PM CDT [facility] CALCIUM 9.4 8.6 - 10.4 mg/dL 12/10/2024 5:20 PM CDT [facility] BUN 15 6 - 20 mg/dL 12/10/2024 5:20 PM CDT [facility] CREATININE 0.74 0.67 - 1.17 mg/dL 12/10/2024 5:20 PM CDT [facility] Comment:The GFR result is no t clinically significant on patients <18 or >70 years of age. GLUCOSE 105(H) 74 - 99 mg/dL 12/10/2024 5:20 PM CDT [facility] TOTAL PROTEIN 7.6 6.3 - 8.7 g/dL 12/10/2024 5:20 PM CDT [facility] ALBUMIN 3.7 3.5 - 5.2 g/dL 12/10/2024 5:20 PM CDT [facility] BILIRUBIN TOTAL 0.3 0.2 - 1.1 mg/dL 12/10/2024 5:20 PM T [facility] ALKALINE PHOSPHATASE 117 40 - 150 U/L 12/10/2024 5:20 PM CDT [facility] AST 32 0 - 41 U/L 12/10/2024 5:20 PM CDT [facility] ALT 19 0 - 41 U/L 12/10/2024 5:20 PM CDT [facility] GFR >60 mL/min/1.7 3 sq meter 12/10/2024 5:20 PM T [facility] Comment:eGFR calculated with 2020 CKD-EPI equation. Vegetarian diet, extremely high or low muscle mass, and may affect results. Cystatin C with Glomerular Filtration Rate is a suitable alternative for these patients. ANION GAP 15 8 - 16 mmol/L 12/10/2024 5:20 PM CDT [facility] Blood Venipuncture / Unknown 12/10/2024 4:41 PM CDT 12/10/2024 4:51 PM CDT us Dirk Bazan MD CHEMISTRY ORDERABLES Final Resul t [facility] CLIA# [id number] [address] [place] [address] * EKG 12-LEAD (12/10/2024 2:52 PM CDT) 12/10/2024 2:52 PM CDT Narrative INTERFACE SYSTEM - 12/10/2024 3:12 [place] [address] Test Date: 2024-12-10 Pat Name: MANDEEP MAYS Department: 90 Room: [address] [place] [address] Gender: Male Senior Asp Net Developer: JW : 1955 Requested By: Order Number: [id number] Reading MD: Ant Sutherland Measurements Intervals [place] Rate: 69 P: 0 NC: 0 QRS: 29 QRSD: 80 T: 159 QT: 382 QTc: 409 Interpretive Statements Likely NORMAL SINUS RHYTHM ST & T wave abnormality, consider anterolateral ischemia Abnormal ECG No previous ECG available for comparison Electronically Signed On 12-10-2024 15:12:52 CDT by Ant Sutherland Procedure Note Ant Sutherland MD - 12/10/2024 [place] [address] Test Date: 2024-12-10 Pat Name: MANDEEP MAYS Department: 90 Room: [address] [place] [address] Gender: Male Senior Asp Net Developer: JW : 1955 Requested By: Order Number: [id number] Reading MD: Ant Sutherland Measurements Intervals [place] Rate: 69 P: 0 NC: 0 QRS: 29 QRSD: 80 T: 159 QT: 382 QTc: 409 Interpretive Statements Likely NORMAL SINUS RHYTHM ST & T wave abnormality, consider anterolateral ischemia Abnormal ECG No previous ECG available for comparison Electronically Signed On 12-10-2024 15:12:52 CDT by Ant Sutherland us Sharona Mcclain MD ECG ORDERABLES Final Result INTERFACE SYSTEM Refer to clinic/hospital department from Last [address] [facility] CCN [employer]
--- OUTSIDE RECORDS SUMMARY | 2025-02-16 05:57 | XMS_ITS | Clinical Summary ---
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
--- OUTSIDE RECORDS SUMMARY | 2025-02-16 05:57 | XMS_ITS | Clinical Summary ---
Author Organization [facility] [employer] Address [address] [place] [address] Care Team Providers Care Hammer Runner Name Role Phone Anuja Frausto ON SITE CONSTRUCTION SUPERINTENDENT-TRAINING EXECUTIVE Primary Care Provider + Source Comments [facility],non-owned Affiliates and Associated Physician Practices is amultiple site organization consisting of ambulatory clinics and hospital sitesin [place], [place], [place] and [place]. This disclosure is being madepursuant to the Care Everywhere program and may not contain all information available regarding this patient. Last updated 18.[facility] Allergies Active Allergy Reactions Criticality Noted [...] AZENASE YARY) 137 & 50 MCG/ACT THPK [place] into the nose. Active cetirizine (ZYRTEC) 10 MG tablet Take 10 mg by mouth DAILY. Active budesonide (PULMICORT) 0.5 MG/2ML nebulizer suspension 500 mcg BID. Active Apixaban (ELIQUIS PO) Active BACLOFEN PO Active DIGOXIN PO Active IRON PO Active GABAPENTIN PO Active GLIPIZIDE PO Active HYDROXYZINE HCL PO Active Menthol-Zinc Oxide (LANTISEPTIC MULTI-PURPOSE EX) Active Ipratropium [place] HFA (ATROVENT HFA IN) Active Loratadine (CLARITIN [...] ADULT 3 DOSE 12/19/2005, 5,06/08/2005 INFLUENZA A [id number] VACCINE 07/14/2009 INFLUENZA VACCINE 06/11/2019, 0,05/24/2009, 8,07/09/2007,07/16/2006,07/20/2004 [...] Sex Assigned at Male 08/22/2022 11:06 AM EXPEDITIONARY FORCE COMBAT SKILLS Legal Sex Male 5:16 PM EXPEDITIONARY FORCE COMBAT SKILLS Gender Identity Male 08/22/2022 11:06 AM EXPEDITIONARY FORCE COMBAT SKILLS Sexual Orientation Straight 08/22/2022 11 :06 AM EXPEDITIONARY FORCE COMBAT SKILLS Last Filed Vital Signs Vital Sign Reading [...] age to complete this topic Insurance MEDICARE [facility]IC[facility] Care Teams Hammer Runner Relationship Specialty Start Date End Date Anuja Frausto APRN-TRAINING EXECUTIVE PCP - General 04/30/17
--- OUTSIDE RECORDS SUMMARY | 2025-02-16 05:57 | XMS_ITS | Clinical Summary ---
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) USE OF ORAL HYPOGLYCEMIC DRUGS Active [...] 01-18 00:00: 00 01-21 00:00 :00 No [id number] Per instruc tions Per instructio ns (route: topical) Med Classific ation: Dermatolo gical albuterol sulfate 2.5 mg/3 mL (0.083 %) solution for nebulizatio n 01-23 00:00: 00 Yes [id number] WHEEZING OR SHORTNESS OF BREATH 3 mL EVERY 6 HOURS 3 mL EVERY 6 HOURS (route: inhalation ) Med Classific ation: Respirato ry Therapy Agents albuterol sulfate HFA 90 mcg/actuati on aerosol inhaler 01-23 00:00: 00 Yes [id number] WHEEZING OR SHORTNESS OF BREATH 2 puff 4 TIMES DAILY 2 puff 4 TIMES DAILY (route: inhalation ) Med Classific ation: Respirato ry Therapy Agents aspirin 81 mg tablet,yobany yed release 09-25 00:00: 00 Yes [id number] HEART 1 tablet DAILY 1 tablet DAILY (route: oral) Med Classific ation: Hematolog ical Agents atorvastati n 80 mg tablet 3-04 00:00: 00 Yes [id number] CHOLESTEROL 1 tablet DAILY 1 tablet DAILY (route: oral) Med Classific ation: Cardiovas cular Therapy Agents baclofen 20 mg tablet 12-31 00:00: 00 Yes [id number] MUSCLE SPASMS 1 tablet 3 TIMES DAILY 1 tablet 3 TIMES DAILY (route: oral) Med Classific ation: Locomotor System bumetanide 2 mg tablet 2023-09 00:00: 00 Yes [id number] FLUID RETENTION 1 tablet 2 TIMES DAILY 1 tablet 2 TIMES DAILY (route: oral) Med Classific ation: Cardiovas cular Therapy Agents cefepime 2 gm in 20 ml NS 2 gm/20ml NS 01-14 00:00: 00 Yes [id number] OSTEOMYLITI S 2 gm EVERY 12 HOURS 2 gm EVERY 12 HOURS (route: INTRAVENOU S) Med Classific ation: ANTIBIOTI CS/ANTIBA CTERIAL Heparin Lock Flush (Porcine) (PF) 10 unit/mL intravenous syringe 01-14 00:00: 00 Yes [id number] TO KEEP PICC LINE PATENT 3-5 mL DAILY 3-5 mL DAILY (route: intravenou s) Med Classific ation: Hematolog ical Agents Normal Saline Flush 0.9 % injection syringe 01-14 00:00: 00 Yes [id number] TO KEEP PICC LINE PATENT 3-10 mL DAILY 3-10 mL DAILY (route: injection) Med Classific ation: Electroly te Balance-N utritiona l Products vancomycin 1.25 gram intravenous solution 01-14 00:00: 00 01-30 23:59 :00 No [id number] OSTEOMYLITI S 1.25 g DAILY 1.25 g DAILY (route: intravenou s) Med Classific ation: Anti-Infe ctive Agents acetaminoph en 325 mg tablet 2023-0914 00:00: 00 Yes [id number] PAIN 2 tablet EVERY 6 HOURS 2 tablet EVERY 6 HOURS (route: oral) Med Classific ation: Analgesic , Anti-infl ammatory or Antipyret ic acetaminoph en 500 mg tablet 2023-0918 00:00: 00 Yes [id number] PAIN 2 tablet EVERY 6 HOURS 2 tablet EVERY 6 HOURS (route: oral) Med Classific ation: Analgesic , Anti-infl ammatory or Antipyret ic benzonatate 100 mg capsule 2023-09 2-10 00:00: 00 Yes [id number] COUGH 1 capsule 3 TIMES DAILY 1 capsule 3 TIMES DAILY (route: oral) Med Classific ation: Respirato ry Therapy Agents budesonide- formoterol HFA 160 mcg-4.5 mcg/actuati on aerosol inhaler 2023-09 0-09 00:00: 00 Yes [id number] COPD 1 puff 2 TIMES DAILY 1 puff 2 TIMES DAILY (route: inhalation ) Med Classific ation: Respirato ry Therapy Agents bupropion HCl 75 mg tablet 2023-09 1-05 00:00: 00 Yes [id number] MOOD 1 tablet 2 TIMES DAILY 1 tablet 2 TIMES DAILY (route: oral) Med Classific ation: Central Nervous System Agents cyanocobala min (vit B-12) 1,000 mcg sublingual tablet 9-23 00:00: 00 Yes [id number] SUPPLEMENT 1 tablet DAILY 1 tablet DAILY (route: sublingual ) Med Classific ation: Electroly te Balance-N utritiona l Products dantrolene 25 mg capsule 1-24 00:00: 00 Yes [id number] MUSCLE TIGHTNESS 2 capsule 3 TIMES DAILY 2 capsule 3 TIMES DAILY (route: oral) Med Classific ation: Locomotor System divalproex 250 mg tablet,yobany yed release 2-24 00:00: 00 Yes [id number] IMPULSE DYSREGULATI ON 1 tablet DAILY 1 tablet DAILY (route: oral) Med Classific ation: Central Nervous System Agents divalproex 500 mg tablet,yobany yed release 2-24 00:00: 00 Yes [id number] IMPULSE DYSREGULATI ON 4 tablet DAILY 4 tablet DAILY (route: oral) Med Classific ation: Central Nervous System Agents docusate sodium 100 mg capsule 6-25 00:00: 00 Yes [id number] SOFTEN STOOL 1 capsule 2 TIMES DAILY 1 capsule 2 TIMES DAILY (route: oral) Med Classific ation: Gastroint estinal Therapy Agents dofetilide 250 mcg capsule 3-03 00:00: 00 Yes [id number] HEART 1 capsule EVERY 12 HOURS 1 capsule EVERY 12 HOURS (route: oral) Med Classific ation: Cardiovas cular Therapy Agents eplerenone 25 mg tablet 5-24 00:00: 00 Yes [id number] HEART 1 tablet EVERY AM 1 tablet EVERY AM (route: oral) Med Classific ation: Cardiovas cular Therapy Agents Fish Oil 1,000 mg (120 mg-180 mg) capsule 2023-09 0-09 00:00: 00 Yes [id number] HEART 1 capsule DAILY 1 capsule DAILY (route: oral) Med Classific ation: Cardiovas cular Therapy Agents fluticasone propionate 50 mcg/actuati on nasal spray,suspe nsion 6-13 00:00: 00 Yes [id number] SINUS CONGESTION 1 spray 2 TIMES DAILY 1 spray 2 TIMES DAILY (route: nasal) Med Classific ation: Respirato ry Therapy Agents gabapentin 400 mg capsule 8-19 00:00: 00 Yes [id number] PAIN 1 capsule 3 TIMES DAILY 1 capsule 3 TIMES DAILY (route: oral) Med Classific ation: Central Nervous System Agents guaifenesin 400 mg tablet 2023-09 0-21 00:00: 00 Yes [id number] MUCUS THINNING 1 tablet EVERY 8 HOURS 1 tablet EVERY 8 HOURS (route: oral) Med Classific ation: Respirato ry Therapy Agents hydroxyzine HCl 25 mg tablet 2-24 00:00: 00 Yes [id number] ITCHING 1 tablet DAILY 1 tablet DAILY (route: oral) Med Classific ation: Central Nervous System Agents ipratropium bromide 21 mcg (0.03 %) nasal spray 3-20 00:00: 00 Yes [id number] NON ALLERGIC RHINITIS 2 spray 3 TIMES DAILY 2 spray 3 TIMES DAILY (route: nasal) Med Classific ation: Respirato ry Therapy Agents metformin 500 mg tablet 2023-09 1-06 00:00: 00 Yes [id number] DIABETES 1 tablet 2 TIMES DAILY 1 tablet 2 TIMES DAILY (route: oral) Med Classific ation: Endocrine multivitami n tablet 2023-09 2-25 00:00: 00 Yes [id number] SUPPLEMENT 1 tablet DAILY 1 tablet DAILY (route: oral) Med Classific ation: Electroly te Balance-N utritiona l Products naltrexone 50 mg tablet 2-06 00:00: 00 Yes [id number] TO KEEP FROM TAKING OPIOIDS 1.5 tablet DAILY 1.5 tablet DAILY (route: oral) Med Classific ation: Chemical Dependenc y, Agents to Treat nitroglycer in 0.4 mg sublingual tablet 2023-09 1-06 00:00: 00 Yes [id number] CHEST PAIN Per instruc tions NEEDED Per instructio ns NEEDED (route: sublingual ) Med Classific ation: Cardiovas cular Therapy Agents NON-FORMULA RY U/D C 0 8-07 00:00: 00 Yes [id number] COMPOUND PAIN CREAM 0 DIRECTE D 4 TIMES DAILY 0 DIRECTED 4 TIMES DAILY (route: TOPICALLY) Med Classific ation: NONE oxybutynin chloride 5 mg tablet 8-14 00:00: 00 Yes [id number] BLADDER 1 tablet DAILY 1 tablet DAILY (route: oral) Med Classific ation: Genitouri nary Therapy pantoprazol e 20 mg tablet,yobany yed release 2023-09 1- 00:00: 00 Yes [id number] GERD 1 tablet 2 TIMES DAILY 1 tablet 2 TIMES DAILY (route: oral) Med Classific ation: Gastroint estinal Therapy Agents polyethylen e glycol 3350 17 gram/dose oral powder 2023-09 1- 00:00: 00 Yes [id number] CONSTIPATIO N 17 gram DAILY 17 gram DAILY (route: oral) Med Classific ation: Gastroint estinal Therapy Agents potassium chloride ER 20 mEq tablet,exte nded release 2023-09 2-09 00:00: 00 Yes [id number] SUPPLEMENT 1.5 tablet DAILY 1.5 tablet DAILY (route: oral) Med Classific ation: Electroly te Balance-N utritiona l Products Santyl 250 unit/gram topical ointment 5-22 00:00: 00 Yes [id number] WOUND DEBRIDEMENT Per instruc tions DAILY Per instructio ns DAILY (route: topical) Med Classific ation: Dermatolo gical Striverdi Respimat 2.5 mcg/actuati on solution for inhalation 2023-09 2-16 00:00: 00 Yes [id number] COPD 2 puff DAILY 2 puff DAILY (route: inhalation ) Med Classific ation: Respirato ry Therapy Agents trazodone 100 mg tablet 2-24 00:00: 00 Yes [id number] SLEEP 1 tablet BEDTIME 1 tablet BEDTIME (route: oral) Med Classific ation: Central Nervous System Agents acetic acid 0.25 % irrigation solution 2023-09 00:00: 00 Yes [id number] TO KEEP SUPRAPUBIC CATHETER PATENT 60 mL NEEDED 60 mL NEEDED (route: irrigation ) Med Classific ation: Genitouri nary Therapy vancomycin 750 mg intravenous solution 01-30 00:00: 00 Yes [id number] INFECTION 750 mg 2 TIMES DAILY 750 [...] CONSULTING PHYSICIANS. RN TO OBSERVE AND ASSESS, HAT MAKER/LOAN REVIEWER TO OBSERVE FOR RISK FOR FALLS AND INSTRUCT IN FALL PREVENTION, HOME SAFETY, MEDICATION MANAGEMENT, INFECTION PREVENTION, AND NUTRITION MANAGEMENT. RN/HAT MAKER/LOAN REVIEWER NURSE MAY PERFORM O2 SATURATION LEVEL. RN TO ASSESS/HAT MAKER TO OBSERVE PATIENT, WITH NOTIFICATION TO THE PHYSICIAN IF SATURATION IS 90% IN THE ABSENCE OF MORE SPECIFIC PARAMETERS FROM THE PHYSICIAN. AGENCY MAY PERFORM A RESUMPTION OF CARE VISIT FOLLOWING ANY HOSPITAL ADMISSION. RN/HAT MAKER/LOAN REVIEWER TO MONITOR CO-MORBID CONDITIONS LISTED ON THE PLAN OF CARE AND ANY NEW CONDITIONS THAT PRESENT THEMSELVES DURING THIS EPISODE TO IDENTIFY CHANGES AND INTERVENE TO MINIMIZE COMPLICATIONS. [code = RN TO OBSERVE, ASSESS, EVALUATE, AND DEVELOP AN INDIVIDUALIZED PLAN OF CARE. AGENCY MAY ACCEPT ORDERS FROM CONSULTING PHYSICIANS. RN TO OBSERVE AND ASSESS, HAT MAKER/LOAN REVIEWER TO OBSERVE FOR RISK FOR FALLS AND INSTRUCT IN FALL PREVENTION, HOME SAFETY, MEDICATION MANAGEMENT, INFECTION PREVENTION, AND NUTRITION MANAGEMENT. RN/HAT MAKER/LOAN REVIEWER NURSE MAY PERFORM O2 SATURATION LEVEL. RN TO ASSESS/HAT MAKER TO OBSERVE PATIENT, WITH NOTIFICATION TO THE PHYSICIAN IF SATURATION IS 90% IN THE ABSENCE OF MORE SPECIFIC PARAMETERS FROM THE PHYSICIAN. AGENCY MAY PERFORM A RESUMPTION OF CARE VISIT FOLLOWING ANY HOSPITAL ADMISSION. RN/HAT MAKER/LOAN REVIEWER TO MONITOR CO-MORBID CONDITIONS LISTED ON THE PLAN OF CARE AND ANY NEW CONDITIONS THAT PRESENT THEMSELVES DURING THIS EPISODE TO IDENTIFY CHANGES AND INTERVENE TO MINIMIZE COMPLICATIONS.] Future Scheduled Test COPD MONIT ORING RN/LOAN REVIEWER/HAT MAKER TO MONITOR FOR SIGNS AND SYMPTOMS OF COPD EXACERBATION, MONITOR FOR ADHERENCE TO MEDICATION AND COPD MANAGEMENT. [code = COPD MONITORING RN/LOAN REVIEWER/HAT MAKER TO MONITOR FOR SIGNS AND SYMPTOMS OF COPD EXACERBATION, MONITOR FOR ADHERENCE TO MEDICATION AND COPD MANAGEMENT.] Future Scheduled Test DIABETES M ONITORING RN/LOAN REVIEWER/HAT MAKER TO MONITOR BLOOD SUGAR LOG FOR BLOOD SUGAR READINGS THAT ARE BEING CHECKED BY PATIENT 2 TIMES A DAY. PATIENT THERAPEUTIC BLOOD SUGAR PARAMETERS ARE 70 - 300. REPORT BLOOD SUGARS OUT OF RANGE TO PHYSICIAN. NURSE MAY PERFORM FINGER STICK BLOOD GLUCOSE NEEDED FOR SIGNS AND SYMPTOMS OF HYPO AND HYPERGLYCEMIA. RN/LOAN REVIEWER/HAT MAKER TO MONITOR ADHERENCE OF PATIENT PERFORMING DIABETIC FOOT CARE AND MAY PERFORM DIABETIC FOOT CARE PRN. RN/LOAN REVIEWER/HAT MAKER TO MONITOR FOR ADHERENCE TO DIABETIC SELF-CARE AND MANAGEMENT INCLUDING MEDICATIONS. [code = DIABETES MONITORING RN/LOAN REVIEWER/HAT MAKER TO MONITOR BLOOD SUGAR LOG FOR BLOOD SUGAR READINGS THAT ARE BEING CHECKED BY PATIENT 2 TIMES A DAY. PATIENT THERAPEUTIC BLOOD SUGAR PARAMETERS ARE 70 - 300. REPORT BLOOD SUGARS OUT OF RANGE TO PHYSICIAN. NURSE MAY PERFORM FINGER STICK BLOOD GLUCOSE NEEDED FOR SIGNS AND SYMPTOMS OF HYPO AND HYPERGLYCEMIA. RN/LOAN REVIEWER/HAT MAKER TO MONITOR ADHERENCE OF PATIENT PERFORMING DIABETIC FOOT CARE AND MAY PERFORM DIABETIC FOOT CARE PRN. RN/LOAN REVIEWER/HAT MAKER TO MONITOR FOR ADHERENCE TO DIABETIC SELF-CARE AND MANAGEMENT INCLUDING MEDICATIONS.] Future Scheduled Test MEDICATION MANAGEMENT; RN/HAT MAKER/LOAN REVIEWER TO REVIEW MEDICATIONS FOR INTERACTIONS, EFFECTIVENESS OF DRUG THERAPY, AND SIGNS/SYMPTOMS OF ADVERSE REACTIONS. MAY INSTRUCT AND REINFORCE MEDICATION TEACHING RELATED TO THE USE OF MEDICATIONS, DOSAGE, FREQUENCY, PURPOSE, SIDE EFFECTS, AND TO REPORT COMPLICATIONS. [code = MEDICATION MANAGEMENT; RN/HAT MAKER/LOAN REVIEWER TO REVIEW MEDICATIONS FOR INTERACTIONS, EFFECTIVENESS OF DRUG THERAPY, AND SIGNS/SYMPTOMS OF ADVERSE REACTIONS. MAY INSTRUCT AND REINFORCE MEDICATION TEACHING RELATED TO THE USE OF MEDICATIONS, DOSAGE, FREQUENCY, PURPOSE, SIDE EFFECTS, AND TO REPORT COMPLICATIONS.] Future Scheduled Test RISK FOR H OSPITALIZATION; RN TO ASSESS/TEACH, LOAN REVIEWER/HAT MAKER TO OBSERVE/TEACH PATIENT/CAREGIVER ON RISK FOR HOSPITALIZATION/EMERGENCY ROOM VISITS, TEACH SIGNS AND SYMPTOMS THAT PUT PATIENT AT RISK, WHEN TO NOTIFY NURSE/PHYSICIAN OF COMPLICATIONS/DECLINE, AND WHEN TO CALL 911. [code = RISK FOR HOSPITALIZATION; RN TO ASSESS/TEACH, LOAN REVIEWER/HAT MAKER TO OBSERVE/TEACH PATIENT/CAREGIVER ON RISK FOR HOSPITALIZATION/EMERGENCY ROOM VISITS, TEACH SIGNS AND SYMPTOMS THAT PUT PATIENT AT RISK, WHEN TO NOTIFY NURSE/PHYSICIAN OF COMPLICATIONS/DECLINE, AND WHEN TO CALL 911.] Future Scheduled Test CARDIOVASC ULAR SYSTEM; RN TO ASSESS/TEACH, HAT MAKER/LOAN REVIEWER TO OBSERVE/TEACH RELATED TO ALTERED CARDIOVASCULAR STATUS TO MINIMIZE COMPLICATIONS AND REDUCE HOSPITALIZATION. [code = CARDIOVASCULAR SYSTEM; RN TO ASSESS/TEACH, HAT MAKER/LOAN REVIEWER TO OBSERVE/TEACH RELATED TO ALTERED CARDIOVASCULAR STATUS TO MINIMIZE COMPLICATIONS AND REDUCE HOSPITALIZATION.] Future Scheduled Test HYPERTENSI ON MANAGEMENT; RN TO ASSESS AND TEACH, HAT MAKER/LOAN REVIEWER TO OBSERVE AND TEACH WARNING SIGNS AND SYMPTOMS TO AVOID HOSPITALIZATION. [code = HYPERTENSION MANAGEMENT; RN TO ASSESS AND TEACH, HAT MAKER/LOAN REVIEWER TO OBSERVE AND TEACH WARNING SIGNS AND SYMPTOMS TO AVOID HOSPITALIZATION.] Future Scheduled Test SKIN INTEG RITY RN TO ASSESS AND TEACH, HAT MAKER/LOAN REVIEWER TO OBSERVE AND TEACH INTEGUMENTARY STATUS TO IDENTIFY CHANGES AND INTERVENE TO MINIMIZE COMPLICATIONS. PROVIDE SKILLED TEACHING OF GENERAL WOUND AND SKIN CARE AND PREVENTION RELATED TO POTENTIAL FOR OR ACTUAL ALTERED SKIN INTEGRITY [code = SKIN INTEGRITY RN TO ASSESS AND TEACH, HAT MAKER/LOAN REVIEWER TO OBSERVE AND TEACH INTEGUMENTARY STATUS TO IDENTIFY CHANGES AND INTERVENE TO MINIMIZE COMPLICATIONS. PROVIDE SKILLED TEACHING OF GENERAL WOUND AND SKIN CARE AND PREVENTION RELATED TO POTENTIAL FOR OR ACTUAL ALTERED SKIN INTEGRITY ] Future Scheduled Test RN TO ASSE SS AND TEACH, HAT MAKER/LOAN REVIEWER TO OBSERVE AND TEACH INTEGUMENTARY STATUS RELATED [...] [code = RN TO ASSESS AND TEACH, HAT MAKER/LOAN REVIEWER TO OBSERVE AND TEACH INTEGUMENTARY STATUS RELATED [...] WOUND MOLE CULAR TESTING PROTOCOL 1 PRN RN/HAT MAKER VISITS MAY BE PERFORMED FOR S/S OF WOUND INFECTION/DETERIORATION/STAGNATION. RN TO ASSESS, HAT MAKER/LOAN REVIEWER TO OBSERVE AND INITIATE PROTOCOL. RN/HAT MAKER/LOAN REVIEWER TO INSTRUCT PATIENT AND/OR CAREGIVER ON S/S OF WOUND INFECTION/DETERIORATION/STAGNATION TO REPORT TO NURSE IF NEW OR WORSENING SYMPTOMS. RN/HAT MAKER/LOAN REVIEWER TO OBTAIN MOLECULAR WOUND TESTING VIA SWAB COLLECTION PER POLICY. [id number] NOTIFY PROVIDER OF RESULTS AND OBTAIN FURTHER ORDERS. [code = WOUND MOLECULAR TESTING PROTOCOL 1 PRN RN/HAT MAKER VISITS MAY BE PERFORMED FOR S/S OF WOUND INFECTION/DETERIORATION/STAGNATION. RN TO ASSESS, HAT MAKER/LOAN REVIEWER TO OBSERVE AND INITIATE PROTOCOL. RN/HAT MAKER/LOAN REVIEWER TO INSTRUCT PATIENT AND/OR CAREGIVER ON S/S OF WOUND INFECTION/DETERIORATION/STAGNATION TO REPORT TO NURSE IF NEW OR WORSENING SYMPTOMS. RN/HAT MAKER/LOAN REVIEWER TO OBTAIN MOLECULAR WOUND TESTING VIA SWAB COLLECTION PER POLICY. [id number] NOTIFY PROVIDER OF RESULTS AND OBTAIN FURTHER ORDERS.] Future Scheduled Test RN/HAT MAKER/CAR EGIVER TO PERFORM/INSTRUCT WOUND CARE TO LEFT [...] FOR LOOSE OR SOILED DRESSING. [code = RN/HAT MAKER/CAREGIVER TO PERFORM/INSTRUCT WOUND CARE TO LEFT TROCHANTER [...] MANAG EMENT; RN TO ASSESS AND TEACH, LOAN REVIEWER/HAT MAKER TO OBSERVE AND TEACH AND PROVIDE EDUCATION ON PAIN MANAGEMENT TECHNIQUES. [code = PAIN MANAGEMENT; RN TO ASSESS AND TEACH, LOAN REVIEWER/HAT MAKER TO OBSERVE AND TEACH AND PROVIDE EDUCATION ON PAIN MANAGEMENT TECHNIQUES.] Future Scheduled Test GENITOURIN YOVANA MANAGEMENT; RN TO ASSESS AND TEACH, HAT MAKER/LOAN REVIEWER TO OBSERVE AND TEACH RELATED TO ALTERED GENITOURINARY STATUS TO MINIMIZE COMPLICATIONS AND REDUCE HOSPITALIZATION. [code = GENITOURINARY MANAGEMENT; RN TO ASSESS AND TEACH, HAT MAKER/LOAN REVIEWER TO OBSERVE AND TEACH RELATED TO ALTERED GENITOURINARY STATUS TO MINIMIZE COMPLICATIONS AND REDUCE HOSPITALIZATION.] Future Scheduled Test URINARY MO LECULAR TESTING PROTOCOL UP TO 2 PRN RN/HAT MAKER/LOAN REVIEWER VISITS MAY BE PERFORMED FOR S/S OF UTI. RN TO ASSESS, HAT MAKER/LOAN REVIEWER TO OBSERVE INITIATION OF UTI PROTOCOL. RN/LOAN REVIEWER/HAT MAKER TO INSTRUCT PATIENT AND/OR CAREGIVER ON S/S OF UTI TO REPORT TO RN/LOAN REVIEWER/HAT MAKER IF NEW OR WORSENING SYMPTOMS. DRINK PLENTY OF WATER THROUGHOUT THE DAY TO MAINTAIN HYDRATION (UNLESS CONTRAINDICATED.) URINATE WHEN THE URGE IS FELT, DO NOT WAIT. WASH GENITALS DAILY. WIPE FROM FRONT TO BACK AFTER HAVING A BOWEL MOVEMENT. RN/LOAN REVIEWER/HAT MAKER TO OBTAIN MOLECULAR URINE TESTING BY OPTION 1 OR OPTION 2 (OPTION 1) RN/LOAN REVIEWER/HAT MAKER TO OBTAIN U/A WITH REFLEX TO UTI PANEL (MOLECULAR) VIA CLEAN CATCH URINE AND IF UNABLE TO OBTAIN MAY PERFORM AN IN AND OUT CATH. IF PATIENT HAS INDWELLING CATHETER MAY OBTAIN FROM SAMPLING PORT. (OPTION 2) 1 RN/LOAN REVIEWER/HAT MAKER TO OBTAIN UTI PANEL (MOLECULAR) VIA SWAB COLLECTION METHOD FROM ADULT BRIEF/DIAPER OR PAD IF PATIENT IS INCONTINENT. NOTIFY PROVIDER OF RESULTS AND OBTAIN FURTHER ORDERS. [code = URINARY MOLECULAR TESTING PROTOCOL UP TO 2 PRN RN/HAT MAKER/LOAN REVIEWER VISITS MAY BE PERFORMED FOR S/S OF UTI. RN TO ASSESS, HAT MAKER/LOAN REVIEWER TO OBSERVE INITIATION OF UTI PROTOCOL. RN/LOAN REVIEWER/HAT MAKER TO INSTRUCT PATIENT AND/OR CAREGIVER ON S/S OF UTI TO REPORT TO RN/LOAN REVIEWER/HAT MAKER IF NEW OR WORSENING SYMPTOMS. DRINK PLENTY OF WATER THROUGHOUT THE DAY TO MAINTAIN HYDRATION (UNLESS CONTRAINDICATED.) URINATE WHEN THE URGE IS FELT, DO NOT WAIT. WASH GENITALS DAILY. WIPE FROM FRONT TO BACK AFTER HAVING A BOWEL MOVEMENT. RN/LOAN REVIEWER/HAT MAKER TO OBTAIN MOLECULAR URINE TESTING BY OPTION 1 OR OPTION 2 (OPTION 1) RN/LOAN REVIEWER/HAT MAKER TO OBTAIN U/A WITH REFLEX TO UTI PANEL (MOLECULAR) VIA CLEAN CATCH URINE AND IF UNABLE TO OBTAIN MAY PERFORM AN IN AND OUT CATH. IF PATIENT HAS INDWELLING CATHETER MAY OBTAIN FROM SAMPLING PORT. (OPTION 2) 1 RN/LOAN REVIEWER/HAT MAKER TO OBTAIN UTI PANEL (MOLECULAR) VIA SWAB COLLECTION METHOD FROM ADULT BRIEF/DIAPER OR PAD IF PATIENT IS INCONTINENT. NOTIFY PROVIDER OF RESULTS AND OBTAIN FURTHER ORDERS.] Future Scheduled Test INDWELLING URINARY CATHETER MANAGEMENT; RN/HAT MAKER/LOAN REVIEWER TO INSTRUCT PATIENT / CAREGIVER ON SUPRAPUBIC URINARY CATHETER MANAGEMENT INCLUDING CARE OF CATHETER, SIGN AND SYMPTOMS OF COMPLICATIONS, PERINEAL CARE, TUBE AND BAG PLACEMENT, PREVENTION OF INFECTION AND SKIN BREAKDOWN. [code = INDWELLING URINARY CATHETER MANAGEMENT; RN/HAT MAKER/LOAN REVIEWER TO INSTRUCT PATIENT / CAREGIVER ON SUPRAPUBIC URINARY CATHETER MANAGEMENT INCLUDING CARE OF CATHETER, SIGN AND SYMPTOMS OF COMPLICATIONS, PERINEAL CARE, TUBE AND BAG PLACEMENT, PREVENTION OF INFECTION AND SKIN BREAKDOWN.] Future Scheduled Test FALL REDUC TION MANAGEMENT; RN TO ASSESS AND OBSERVE, HAT MAKER/LOAN REVIEWER TO OBSERVE FALL RISK FACTORS AND EDUCATE PATIENT/CAREGIVER ON STRATEGIES TO MINIMIZE THE RISK OF FALLING. [code = FALL REDUCTION MANAGEMENT; RN TO ASSESS AND OBSERVE, HAT MAKER/LOAN REVIEWER TO OBSERVE FALL RISK FACTORS AND EDUCATE PATIENT/CAREGIVER ON STRATEGIES TO MINIMIZE THE RISK OF FALLING.] Future Scheduled Test IV THERAPY MANAGEMENT; RN TO ASSESS AND TEACH, LOAN REVIEWER/HAT MAKER TO OBSERVE AND TEACH ON IV ACCESS SITE AT RUE, RESPONSE TO MEDICATION. RN/LOAN REVIEWER/HAT MAKER FOR SKILLED TEACHING REGARDING INFUSION PROCEDURE, CARE OF ACCESS DEVICE, SIGNS AND SYMPTOMS OF ACCESS DEVICE COMPLICATIONS AND, CARE AND USE OF INFUSION EQUIPMENT. [code = IV THERAPY MANAGEMENT; RN TO ASSESS AND TEACH, LOAN REVIEWER/HAT MAKER TO OBSERVE AND TEACH ON IV ACCESS SITE AT RUE, RESPONSE TO MEDICATION. RN/LOAN REVIEWER/HAT MAKER FOR SKILLED TEACHING REGARDING INFUSION PROCEDURE, CARE [...] AND PRN FOR LOOSE OR SOILED DRESSING. RN/HAT MAKER/LOAN REVIEWER TO CLEANSE ACCESS SITE WITH ALCOHOL SWABS [...] AND PRN FOR LOOSE OR SOILED DRESSING. RN/HAT MAKER/LOAN REVIEWER TO CLEANSE ACCESS SITE WITH ALCOHOL SWABS [...] WILL BE DRAWN 01/26/25) FAX LABS TO [facility] AT [phone], DR FALGUNI JUNIOR AT [phone], AND PHARMACIST SILVIA VALLADARES AT [phone]. RN TO DRAW LABS VIA VENIPUNCTURE PRN IF UNABLE TO DRAW VIA VASCULAR ACCESS DEVICE. [code = LAB DRAW VIA VASCULAR ACCESS DEVICE; RN TO PERFORM LAB DRAW FROM ACCESS DEVICE. DRAW CBC, CMP, VANCO TROUGH EVERY SATURDAY (EXCEPT FOR 01/25/25 DUE TO HOLIDAY, LABS WILL BE DRAWN 01/26/25) FAX LABS TO [facility] AT [phone], DR FALGUNI JUNIOR AT [phone], AND PHARMACIST SILVIA VALLADARES AT [phone]. RN TO DRAW LABS VIA VENIPUNCTURE PRN IF UNABLE TO DRAW VIA VASCULAR ACCESS DEVICE.] Future Scheduled Test PRN VISITS ; NUMBER OF RN/HAT MAKER/LOAN REVIEWER VISITS: 3 RN/HAT MAKER/LOAN REVIEWER TO PERFORM: ASSESSMENT OF PICC LINE, ASSESSMENT OF . ASSESSMENT OF WOUND FOR THE FOLLOWING REASONS: COMPLICATIONS [code = PRN VISITS; NUMBER OF RN/HAT MAKER/LOAN REVIEWER VISITS: 3 RN/HAT MAKER/LOAN REVIEWER TO PERFORM: ASSESSMENT OF PICC LINE, ASSESSMENT [...] End Date/Time Encounter Type Admission Type Attending [facility] Care Department Encounter ID Discharge Date Discharge Status Discharge Condition Discharge Reason Percent Goals Met 2025-01-21 00:00:00 2025-03-21 00:00:00 Outpatient NEW ADMISSION ARRON [facility] [id number] 32.35
--- OUTSIDE RECORDS SUMMARY | 2025-02-16 05:57 | XMS_ITS | Encounter Summary ---
Author Organization [facility] Healthcare Address [address] [place] [address] Care Team Providers Care Doctor'S Assistant Name Role Phone Adan Serrano MD Primary Care Provider Encounter Details Date Type Department Care Team (Late st Contact Info) Description 11/11/2023 Telephone [facility] [address] [place] [address] Adan Serrano MD [address] [place] [address] Social History Tobacco Use Types Packs/Day Years Used Date Smoking Tobacco: Never Assessed Personal Safety Answer Date Recorded Getting School Help Needed Not on file 11/02 Sex and Gender Information Value Date Recorded Sex Assigned at Not on file Legal Sex Male 8:40 PM [employer] Gender Identity Not on file Sexual Orientation Not on file documented as of this encounter Plan of Treatment Not on file documented as of this encounter Visit Diagnoses Not on filedocumented in this encounter Care Teams Doctor'S Assistant Relationship Specialty Start Date End Date Adan Serrano MD [address] [place] [address] PCP - General Family Medicine 10/25/22 documented as of this encounter
--- NOTE | 2025-02-16 06:30 | PC.NURSE ---
x3 assist pt to w/c using ruiz lift.
[2025-02-16 06:38] VITALS: BP 107/88; PULSE 88; RESP 16; O2SAT 95
== END 2025-02-16 06:40 | disposition home or self-care (01) ==
LOC: ANHED 05:55
PROVIDERS: Emergency Provider Emergency Medicine; PCP Family Medicine
DX: S09.90XA Unspecified injury of head, initial encounter (principal); S19.9XXA Unspecified injury of neck, initial encounter; G82.20 Paraplegia, unspecified; T14.8XXS Other injury of unspecified body region, sequela; I48.0 Paroxysmal atrial fibrillation; I25.10 Atherosclerotic heart disease of native coronary artery without angina pectoris; E11.9 Type 2 diabetes mellitus without complications; E78.5 Hyperlipidemia, unspecified; E53.8 Deficiency of other specified B group vitamins; F43.10 Post-traumatic stress disorder, unspecified; F17.290 Nicotine dependence, other tobacco product, uncomplicated; Z95.1 Presence of aortocoronary bypass graft; Z79.82 Long term (current) use of aspirin; Z79.01 Long term (current) use of anticoagulants; Z79.899 Other long term (current) drug therapy; Z79.4 Long term (current) use of insulin; Z79.84 Long term (current) use of oral hypoglycemic drugs; Z79.85 Long-term (current) use of injectable non-insulin antidiabetic drugs; W06.XXXA Fall from bed, initial encounter; X58.XXXS Exposure to other specified factors, sequela
CPT/HCPCS: 70450; 72125; 99284; A9270